=== PATIENT | female | born 1965 | race Hispanic/Latino ===

== ENCOUNTER 2017-06-13 08:20 | Day surgery (SDC) | payer MEDICARE ==
[2017-06-05 11:31] VITALS: BMI 38.0
[2017-06-13] MEDS ORDERED: Propofol 10 mg/ml Inj (20 ML) ONE ×2 (10:56→11:08)
[2017-06-13] MEDS ORDERED: Sodium Chloride 0.9% 1,000 ML IV SCH (11:30)
[2017-06-13 11:35] VITALS: O2SAT 99
[2017-06-13 12:44] VITALS: BP 120/64; PULSE 103; RESP 16; TEMP 98.7
== END 2017-06-13 12:57 | disposition home or self-care (01) ==
LOC: ENDO 08:20
PROVIDERS: ATTEND Internal Medicine Gastroenterology
DX: K22.10 Ulcer of esophagus without bleeding (principal); K20.9 Esophagitis, unspecified; K44.9 Diaphragmatic hernia without obstruction or gangrene; F32.89 Other specified depressive episodes; F41.0 Panic disorder [episodic paroxysmal anxiety]
CPT/HCPCS: 43235; J2704; J3010; J7040 ×2

== ENCOUNTER 2017-07-09 08:20 | Emergency (ER) | payer MEDICARE ==
[2017-07-09 09:01] VITALS: TEMP 98.1; BMI 35.4
--- NOTE | 2017-07-09 09:35 | ED PDOC ---
Arrival/HPI - General Chief Complaint: Breast Problem Time Seen by Provider: 07/09/17 09:15 Historian: Patient - History of Present Illness Narrative History of Present Illness (Text): 07/09/17 09:32 A 52 year old female, whose past medical history includes anxiety, depression( taking medication), CAD, dizziness, and mitral valve prolapse, presents to the emergency department complaining of left side breast pain. Patient reports pain began yesterday. Patient denies any discharge from nipple, shortness of breath, abdominal pain, back pain, weight loss, chills, or any other complaints. Patient has not contacted PMD about symptom. Also, patient mentions having breast examination in the past. PMD: Dr. Trujillo Time/Duration: 24 hours Symptom Onset: Sudden Symptom Course: Unchanged Past Medical History - Provider Review Nursing Documentation Reviewed: Yes - Infectious Disease Hx of Infectious Diseases: None - Tetanus Immunization Tetanus Immunization: Unknown - Past Medical History Past Medical History: No Previous - Cardiac Hx Cardiac Disorders: No Hx Pacemaker: No - Pulmonary Hx Respiratory Disorders: No - Neurological Hx Paralysis: No - HEENT Hx HEENT Disorder: Yes (patient wears eyeglasses) - Renal Hx Renal Disorder: No - Endocrine/Metabolic Hx Endocrine Disorders: No - Hematological/Oncological Hx Blood Transfusions: No - Integumentary Hx Dermatological Disorder: No - Musculoskeletal/Rheumatological Hx Musculoskeletal Disorders: No - Gastrointestinal Hx Gastrointestinal Disorders: Yes Hx Gall Bladder Disease: Yes (CHOLELITHIASIS) Hx Gastrointestinal Ulcer: Yes - Genitourinary/Gynecological Hx Genitourinary Disorders: Yes Hx Urinary Tract Infection: Yes - Psychiatric Hx Anxiety: Yes Hx Depression: Yes Hx Emotional Abuse: No Hx Physical Abuse: No Hx Substance Use: No - Past Surgical History Past Surgical History: No Previous - Surgical History Hx Appendectomy: Yes - Anesthesia Hx Anesthesia Reactions: No Hx Malignant Hyperthermia: No - Suicidal Assessment Feels Threatened In Home Enviroment: No Family/Social History - Physician Review Nursing Documentation Reviewed: Yes Family/Social History: No Known Family HX Smoking Status: Never Smoked Hx Alcohol Use: No Hx Substance Use: No Hx Substance Use Treatment: No Allergies/Home Meds Allergies/Adverse Reactions: Allergies No Known Allergies Allergy (Verified 07/09/17 08:57) Home Medications: Home Meds Medication Instructions Recorded Confirmed ARIPiprazole [Abilify] 5 mg PO QAM 03/29/14 07/09/17 Escitalopram [Lexapro] 10 mg PO QAM 01/25/16 07/09/17 LORazepam [Ativan] 2 mg PO QID 01/25/16 07/09/17 Famotidine [Pepcid] 20 mg PO DAILY 05/28/16 07/09/17 Esomeprazole Magnesium [Nexium] 40 mg PO DAILY 06/05/17 07/09/17 Review of Systems - Physician Review All systems were reviewed & negative as marked: Yes - Review of Systems Constitutional: absent: Weight Change, Night Sweats Respiratory: absent: SOB Cardiovascular: Other (left side breast pain, but no discharge from nipple) Gastrointestinal: absent: Abdominal Pain Musculoskeletal: absent: Back Pain Physical Exam Vital Signs Reviewed: Yes Vital Signs Temp Pulse Resp BP Pulse Ox 07/09/17 12:33 89 17 135/71 98 07/09/17 12:02 94 H 18 138/69 100 07/09/17 08:58 98.1 F 108 H 19 145/70 100 Temperature: Afebrile Blood Pressure: Normal Pulse: Regular Respiratory Rate: Normal Appearance: Positive for: Well-Appearing Pain Distress: None Mental Status: Positive for: Alert and Oriented X 3 - Systems Exam Head: Present: Atraumatic, Normocephalic Pupils: Present: PERRL Extroacular Muscles: Present: EOMI Conjunctiva: Present: Normal Mouth: Present: Moist Mucous Membranes Neck: Present: Normal Range of Motion Respiratory/Chest: Present: Clear to Auscultation, Good Air Exchange. No: Respiratory Distress, Accessory Muscle Use Cardiovascular: Present: Regular Rate and Rhythm, Normal S1, S2. No: Murmurs Abdomen: Present: Normal Bowel Sounds. No: Tenderness, Distention, Peritoneal Signs Breast/Axillary: Present: Other (right lower quadrant tenderness of left breast ; no warmth (examination chaperoned by Lu Mandel)), Swelling ( palpable soft tissue swelling, regular shape 2 inch x 1 inch). No: Erythema, Nipple Discharge Back: Present: Normal Inspection Upper Extremity: Present: Normal Inspection. No: Cyanosis, Edema Lower Extremity: Present: Normal Inspection. No: Edema Neurological: Present: GCS=15, CN II-XII Intact, Speech Normal Skin: Present: Warm, Dry, Normal Color. No: Rashes Psychiatric: Present: Alert, Oriented x 3, Normal Insight, Normal Concentration Medical Decision Making ED Course and Treatment: 07/09/17 09:36 Impression: 52 year old female with left side breast pain. Physical exam shwos right lower quadrant tenderness to left breast; soft tissue swelling, regular size 2 inch x 1 inch; no erythema; no warmth. Chaperoned by Lu Mandel. Differential Diagnosis included but are not limited to: Breast Pain Abscess vs. Cyst vs. Soft Tissue Swelling Plan: -- Breast Left Ultrasound -- Motrin -- Reassess and disposition Prior Visits: Notes and results from previous visits were reviewed. Patient was last seen in the emergency department on 03/06/2015 for epigastric abdominal pain with associated symptoms of multiple episodes of diarrhea. Patient was discharged home. Progress Notes: 07/09/2017 11:19 Breast Ultrasound IMPRESSION: No sonographic evidence of malignancy. BIRADS: BIRADS 1 (negative) Recommendation: Continue annual screening mammography, as per ACR guidelines Dictator: Jakub Toussaint MD I explained ultrasound report to the patient and family member, sister, at bedside. I advised her to follow up with a breast surgeon and gave her the information of a breast surgeon Dr. Drew. I advised her that she needs to schedule a Mammogram as soon as possible. She agreed to make sure she schedules a mammogram. She was advised to follow up with her primary care doctor in 1- 2days. - RAD Interpretation Radiology Orders: 07/09/17 09:29 BREAST UNILATERAL LEFT [US] Stat - Medication Orders Current Medication Orders: Discontinued Medications Ibuprofen (Motrin Tab) 600 mg PO STAT STA Stop: 07/09/17 09:33 Last Admin: 07/09/17 10:23 Dose: 600 mg MAR Pain/Vitals Document 07/09/17 10:23 SF (Rec: 07/09/17 10:23 SF [facility] [id number] Pain Reassessment Is This A Pain ReAssessment? Yes Sleep Is patient sleeping during reassessment? No Presence of Pain Presence of Pain Yes Pain Scale Used Pain Scale Used Numeric Location Left, Right or Bilateral Left - Scribe Statement The provider has reviewed the documentation as recorded by the [employer] Jordan Provider Scribe Attestation: All medical record entries made by the [employer] were at my direction and personally dictated by me. I have reviewed the chart and agree that the record accurately reflects my personal performance of the history, physical exam, medical decision making, and the department course for this patient. I have also personally directed, reviewed, and agree with the discharge instructions and disposition. Disposition/Present on Arrival - Present on Arrival Any Indicators Present on Arrival: No History of DVT/PE: No History of Uncontrolled Diabetes: No Urinary Catheter: No History of Decub. Ulcer: No History Surgical Site Infection Following: None - Disposition Have Diagnosis and Disposition been Completed?: Yes Diagnosis: Breast pain Disposition: HOME/ ROUTINE Disposition Time: 12:38 Patient Plan: Discharge Condition: IMPROVED Discharge Instructions (ExitCare): Chest Pain (ED), Breast Self Exam for Women (ED) Additional Instructions: Ms Jacob, thank you for letting us take care of you today. Your provider was Dr. Mansfield. You were treated for Breast Pain. The emergency medical care you received today was directed at your acute symptoms. If you were prescribed any medication, please fill it and take as directed. It may take several days for your symptoms to resolve. Return to the Emergency Department if your symptoms worsen, do not improve, or if you have any other problems. Please contact your doctor or call one of the physicians/clinics you have been referred to that are listed on the Patient Visit Information form that is included in your discharge packet. Bring any paperwork you were given at discharge with you along with any medications you are taking to your follow up visit. Our treatment cannot replace ongoing medical care by a primary care provider (PCP) outside of the emergency department. Thank you for allowing the [facility] team to be part of your care today. If you had an X-Ray or CT scan: A Radiologist will review the ED reading if any change in treatment is needed we will contact you. If you had a blood, urine, or wound culture: It will take several days for the results, if any change in treatment is needed we will contact you. If you had an STI test: It will take 48 hours for the results. Please call after 1 week if you have not heard back. Prescriptions: Ibuprofen [Motrin] 600 mg PO Q6 PRN #30 tab PRN Reason: Pain, Moderate (4-7) Referrals: Denzel Beckham MD [Staff Provider] - Follow up with primary Forms: [employer] (Italian), WORK NOTE
--- NOTE | 2017-07-09 11:21 | US ---
HISTORY: Comparison examinations: 03/28/2016 prior bilateral breast ultrasound. TECHNIQUE: Sonographic evaluation of both breast was performed. FINDINGS: LEFT BREAST: Cyst(s): None Breast mass: None Dilated ducts: None Parenchymal distortion: None Skin thickening or subcutaneous abnormalities: None No axillary lymphadenopathy identified. IMPRESSION: No sonographic evidence of malignancy. BIRADS: BIRADS 1 (negative) Recommendation: Continue annual screening mammography, as per ACR guidelines
[2017-07-09 12:34] VITALS: BP 135/71; PULSE 89; RESP 17; O2SAT 98
== END 2017-07-09 12:38 | disposition home or self-care (01) ==
LOC: ED 08:20
DX: N64.4 Mastodynia (principal); I25.10 Atherosclerotic heart disease of native coronary artery without angina pectoris

== ENCOUNTER 2017-07-15 08:26 | Emergency (ER) | payer MEDICARE, OTHER ==
[2017-07-15 08:43] VITALS: BMI 31.8
[2017-07-15 08:56] VITALS: RESP 18; TEMP 98.4; O2SAT 98
--- NOTE | 2017-07-15 09:57 | RAD ---
PROCEDURE: Left Knee Radiographs. HISTORY: Pain. COMPARISON: None. FINDINGS: BONES: There is no acute displaced fracture or bone destruction. Bone alignment. There is diffuse bone demineralization. There is a prominent superior patellar enthesophyte. JOINTS: Normal. No osteoarthritis. JOINT EFFUSION: None. OTHER FINDINGS: There is diffuse subcutaneous edema. IMPRESSION: No acute displaced fracture or dislocation.
--- NOTE | 2017-07-15 09:59 | ED PDOC ---
Arrival/HPI - General Chief Complaint: Lower Extremity Problem/Injury Time Seen by Provider: 07/15/17 08:59 Historian: Patient - History of Present Illness Narrative History of Present Illness (Text): 07/15/17 09:55 52yo morbidly obese female who present with complaint of intermittent left knee pain. Notes history of similar pain. States she saw a Doctor for the pain in the past, but never had any imaging. Notes that this pain started few days ago. Pain is only with ambulation, sharp, 6/10. she did not take any medication for the pain. She denies calf pain, trauma, swelling, redness, SOB, any other complaint. Past Medical History - Provider Review Nursing Documentation Reviewed: Yes - Infectious Disease Hx of Infectious Diseases: None - Tetanus Immunization Tetanus Immunization: Unknown - Reproductive Menopause: Yes - Past Medical History Past Medical History: No Previous - Cardiac Hx Cardiac Disorders: No Hx Pacemaker: No - Pulmonary Hx Respiratory Disorders: No - Neurological Hx Paralysis: No - HEENT Hx HEENT Disorder: Yes (patient wears eyeglasses) - Renal Hx Renal Disorder: No - Endocrine/Metabolic Hx Endocrine Disorders: No - Hematological/Oncological Hx Blood Transfusions: No - Integumentary Hx Dermatological Disorder: No - Musculoskeletal/Rheumatological Hx Musculoskeletal Disorders: No - Gastrointestinal Hx Gastrointestinal Disorders: Yes Hx Gall Bladder Disease: Yes (CHOLELITHIASIS) Hx Gastrointestinal Ulcer: Yes - Genitourinary/Gynecological Hx Genitourinary Disorders: Yes Hx Urinary Tract Infection: Yes - Psychiatric Hx Anxiety: Yes Hx Depression: Yes Hx Emotional Abuse: No Hx Physical Abuse: No Hx Substance Use: No - Past Surgical History Past Surgical History: No Previous - Surgical History Hx Appendectomy: Yes - Anesthesia Hx Anesthesia Reactions: No Hx Malignant Hyperthermia: No - Suicidal Assessment Feels Threatened In Home Enviroment: No Family/Social History - Physician Review Nursing Documentation Reviewed: Yes Family/Social History: Unknown Family HX Smoking Status: Never Smoked Hx Alcohol Use: No Hx Substance Use: No Hx Substance Use Treatment: No Allergies/Home Meds Allergies/Adverse Reactions: Allergies No Known Allergies Allergy (Verified 07/15/17 09:18) Home Medications: Home Meds Medication Instructions Recorded Confirmed ARIPiprazole [Abilify] 5 mg PO QAM 03/29/14 07/15/17 Escitalopram [Lexapro] 10 mg PO QAM 01/25/16 07/15/17 LORazepam [Ativan] 2 mg PO QID 01/25/16 07/15/17 Famotidine [Pepcid] 20 mg PO DAILY 05/28/16 07/15/17 Esomeprazole Magnesium [Nexium] 40 mg PO DAILY 06/05/17 07/15/17 Review of Systems - Physician Review All systems were reviewed & negative as marked: Yes - Review of Systems Constitutional: Normal Eyes: Normal ENT: Normal Respiratory: Normal Cardiovascular: Normal Gastrointestinal: Normal Genitourinary Female: Normal Musculoskeletal: Normal, Arthralgias (Left knee pain) Skin: Normal Neurological: Normal Endocrine: Normal Hemo/Lymphatic: Normal Psychiatric: Normal Physical Exam Vital Signs Reviewed: Yes Vital Signs Temp Pulse Resp BP Pulse Ox 07/15/17 08:43 98.4 F 110 H 18 106/68 98 Temperature: Afebrile Blood Pressure: Normal Pulse: Regular Respiratory Rate: Normal Appearance: Positive for: Well-Appearing, Non-Toxic, Comfortable Pain Distress: None Mental Status: Positive for: Alert and Oriented X 3 - Systems Exam Head: Present: Atraumatic, Normocephalic Pupils: Present: PERRL Extroacular Muscles: Present: EOMI Conjunctiva: Present: Normal Mouth: Present: Moist Mucous Membranes Neck: Present: Normal Range of Motion Respiratory/Chest: Present: Clear to Auscultation, Good Air Exchange. No: Respiratory Distress, Accessory Muscle Use Cardiovascular: Present: Regular Rate and Rhythm, Normal S1, S2. No: Murmurs Abdomen: Present: Normal Bowel Sounds. No: Tenderness, Distention, Peritoneal Signs Back: Present: Normal Inspection Upper Extremity: Present: Normal Inspection. No: Cyanosis, Edema Lower Extremity: Present: Normal Inspection, NORMAL PULSES, Normal ROM, Neurovascularly Intact. No: Edema, Tenderness, Swelling, Erythema, Temperature Abnormalties Neurological: Present: GCS=15, CN II-XII Intact, Speech Normal Skin: Present: Warm, Dry, Normal Color. No: Rashes Psychiatric: Present: Alert, Oriented x 3, Normal Insight, Normal Concentration Medical Decision Making ED Course and Treatment: 07/15/17 10:01 Left knee - No acute fracture/dislocation Result was DW the pt. Trent wrap applied. PT advised to f/u with orthopedist. Rx of Naprosyn given. - RAD Interpretation Radiology Orders: 07/15/17 09:03 KNEE LEFT 2 VIEWS (AP & LAT) [RAD] Stat - Medication Orders Current Medication Orders: Discontinued Medications Ketorolac Tromethamine (Toradol) 60 mg IM STAT STA Stop: 07/15/17 09:05 Last Admin: 07/15/17 09:16 Dose: 60 mg MAR Pain Assessment Document 07/15/17 09:16 SE (Rec: 07/15/17 09:16 [id number]) Pain Reassessment Is this a pain reassessment? No Sleep Is patient sleeping during reassessment? No Presence of Pain Presence of Pain Yes Pain Scale Used Pain Scale Used Numeric Location Left, Right or Bilateral Left Pain Location Body Site Knee IM Administration Charges Document 07/15/17 09:16 SE (Rec: 07/15/17 09:16 [id number]) Injection Site MAR Injection Site Right Vastus Lateralis Charges for Administration # of IM Administrations 1 Disposition/Present on Arrival - Present on Arrival Any Indicators Present on Arrival: No History of DVT/PE: No History of Uncontrolled Diabetes: No Urinary Catheter: No History of Decub. Ulcer: No - Disposition Have Diagnosis and Disposition been Completed?: Yes Diagnosis: Knee pain Disposition Time: 10:05 Patient Plan: Discharge Condition: STABLE Discharge Instructions (ExitCare): Knee Pain (ED) Additional Instructions: Follow up with orthopedist Return to ED for any new or worsening symptoms Prescriptions: Naproxen [Naprosyn] 500 mg PO BID #20 tablet Referrals: Maurilio Trujillo MD [Primary Care Provider] - Follow up with primary Juan Manuel Temple III, MD [Medical Doctor] - Follow up with primary Teofilo Morel DO [Staff Provider] - Follow up with primary Forms: [employer] (Yakut)
[2017-07-15 10:12] VITALS: BP 119/53; PULSE 100
== END 2017-07-15 10:13 | disposition home or self-care (01) ==
LOC: ED 08:26
DX: M25.562 Pain in left knee (principal)
CPT/HCPCS: 73560; 96372; 99284; J1885

== ENCOUNTER 2017-07-15 17:47 | Inpatient (IN) | payer MEDICARE, OTHER ==
[2017-07-15 19:08] LABS: BASO # 0.03 K/mm3 (0.0-2.0); BASO % 0.4 % (0.0-3.0); EOS # 0.1 (0.0-0.7); EOS % 1.2 % (1.5-5.0); GRAN # 5.87 (1.4-6.5); GRAN % 72.3 % (50.0-68.0); LYMPH # 1.5 (1.2-3.4); LYMPH % 18.8 % (22.0-35.0); MEAN CORPUSCULAR HEMOGLOBIN 15.9 pg (25.0-35.0); MEAN CORPUSCULAR HGB CONC 24.5 g/dl (31.0-37.0); MEAN PLATELET VOLUME 8.8 fl (7.0-11.0); MONO # 0.6 (0.1-0.6); MONO % 7.3 % (1.0-6.0); RBC 3.83 10^6/uL (3.5-6.1); RED CELL DISTRIBUTION WIDTH 20.7 % (11.5-14.5)
[2017-07-15 19:11] LABS: VENOUS BLOOD GAS BASE EXCESS -0.4 mmol/L (0.0-2.0); VENOUS BLOOD GAS PO2 77 mm/Hg (30-55); VENOUS BLOOD PH 7.38 (7.32-7.43)
[2017-07-15 19:12] LABS: HEMOGLOBIN 6.1 g/dL (12.0-16.0)
[2017-07-15 19:14] LABS: WHITE BLOOD COUNT 8.1 10^3/ul (4.5-11.0)
--- NOTE | 2017-07-15 19:16 | ED PDOC ---
Arrival/HPI - General Chief Complaint: Shortness Of Breath Time Seen by Provider: 07/15/17 17:54 Historian: Patient - History of Present Illness Narrative History of Present Illness (Text): 07/15/17 19:09 52yo morbidly obese female preset with the complaint of b/l leg swelling, Pt was seen here earlier for left knee pain and she was discharged after a negative knee xray. She came back with her sister with 2weeks history of worsening LE edema with associated HARVEY. He denies previous history. Danes fever , chills, chest pain, diaphoresis, upper back ripping/tearing pain, any other complaint. Past Medical History - Provider Review Nursing Documentation Reviewed: Yes - Infectious Disease Hx of Infectious Diseases: None - Tetanus Immunization Tetanus Immunization: Unknown - Reproductive Menopause: Yes - Past Medical History Past Medical History: No Previous - Cardiac Hx Cardiac Disorders: Yes Hx Mitral Valve Prolapse: Yes - Pulmonary Hx Respiratory Disorders: No - Neurological Hx Neurological Disorder: No - HEENT Hx HEENT Disorder: Yes (patient wears eyeglasses) - Renal Hx Renal Disorder: No - Endocrine/Metabolic Hx Endocrine Disorders: No - Hematological/Oncological Hx Blood Disorders: No - Integumentary Hx Dermatological Disorder: No - Musculoskeletal/Rheumatological Hx Musculoskeletal Disorders: No - Gastrointestinal Hx Gastrointestinal Disorders: Yes Hx Gall Bladder Disease: Yes (CHOLELITHIASIS) Hx Gastrointestinal Ulcer: Yes - Genitourinary/Gynecological Hx Genitourinary Disorders: Yes Hx Urinary Tract Infection: Yes Other/Comment: ENDOMETRIOSIS - Psychiatric Hx Anxiety: Yes Hx Depression: Yes Hx Emotional Abuse: No Hx Physical Abuse: No Hx Substance Use: No - Past Surgical History Past Surgical History: No Previous - Surgical History Hx Appendectomy: Yes - Anesthesia Hx Anesthesia Reactions: No Hx Malignant Hyperthermia: No - Suicidal Assessment Feels Threatened In Home Enviroment: No Family/Social History - Physician Review Nursing Documentation Reviewed: Yes Family/Social History: Unknown Family HX Smoking Status: Never Smoked Hx Alcohol Use: No Hx Substance Use: No Hx Substance Use Treatment: No Allergies/Home Meds Allergies/Adverse Reactions: Allergies No Known Allergies Allergy (Verified 07/15/17 18:09) Home Medications: Home Meds Medication Instructions Recorded Confirmed ARIPiprazole [Abilify] 5 mg PO QAM 03/29/14 07/15/17 Escitalopram [Lexapro] 10 mg PO QAM 01/25/16 07/15/17 LORazepam [Ativan] 2 mg PO QID 01/25/16 07/15/17 Famotidine [Pepcid] 20 mg PO DAILY 05/28/16 07/15/17 Esomeprazole Magnesium [Nexium] 40 mg PO DAILY 06/05/17 07/15/17 Review of Systems - Physician Review All systems were reviewed & negative as marked: Yes - Review of Systems Constitutional: Normal Eyes: Normal ENT: Normal Respiratory: SOB. absent: Cough Cardiovascular: Edema. absent: Palpitations, Calf Pain, HARVEY Gastrointestinal: Normal Genitourinary Female: Normal Musculoskeletal: Normal Skin: Normal Neurological: Normal Endocrine: Normal Hemo/Lymphatic: Normal Psychiatric: Normal Physical Exam Vital Signs Reviewed: Yes Vital Signs Temp Pulse Resp BP Pulse Ox 07/15/17 18:22 21 98 07/15/17 18:15 98.1 F 114 H 23 121/80 99 Temperature: Afebrile Blood Pressure: Normal Pulse: Tachycardic Respiratory Rate: Normal Appearance: Positive for: Well-Appearing, Non-Toxic, Comfortable Pain Distress: None Mental Status: Positive for: Alert and Oriented X 3 - Systems Exam Head: Present: Atraumatic, Normocephalic Pupils: Present: PERRL Extroacular Muscles: Present: EOMI Conjunctiva: Present: Normal Mouth: Present: Moist Mucous Membranes Neck: Present: Normal Range of Motion Respiratory/Chest: Present: Clear to Auscultation, Good Air Exchange. No: Respiratory Distress, Accessory Muscle Use, Wheezes, Decreased Breath Sounds, Rales, Retracting, Rhonchi Cardiovascular: Present: Regular Rate and Rhythm, Normal S1, S2. No: Murmurs Abdomen: Present: Normal Bowel Sounds. No: Tenderness, Distention, Peritoneal Signs Back: Present: Normal Inspection Upper Extremity: Present: Normal Inspection. No: Cyanosis, Edema Lower Extremity: Present: Edema (4+ bipedal edema), NORMAL PULSES, Normal ROM, Neurovascularly Intact. No: CALF TENDERNESS, Cyanosis, Temperature Abnormalties Neurological: Present: GCS=15, CN II-XII Intact, Speech Normal Skin: Present: Warm, Dry, Normal Color. No: Rashes Psychiatric: Present: Alert, Oriented x 3, Normal Insight, Normal Concentration Medical Decision Making ED Course and Treatment: 07/15/17 20:33 EKG Sinus tachy with LVH @110bpm PT in ED for stated history. She was not in any distress. Lab was reviewed and H /H of 6.4 was noted which is new compare to her previous labs. Type and cross match x 2units was ordered and pending. D dimer was elevated and Chest CTA was ordered LE doppler was negative according to the US tech Case was DW Dr. Sorensen and pt was admitted 07/15/17 21:18 On further discussion of lab with pt and the family members, the sister states pt was recently told she have GI ulcer after EGD and had a f/u with the GI, Dr. Toledo on the 8th of this month. On further evaluation pt does appear pale. Consent for transfusion was obtained. - Lab Interpretations Lab Results: 07/15/17 18:47 07/15/17 18:47 Lab Results 07/15/17 18:47: Sodium 143, Chloride 108 H, Potassium 3.7, Carbon Dioxide 24, Anion Gap 15, BUN 14, Creatinine 0.7, Est GFR ( Amer) > 60, Est GFR (Non- Af Amer) > 60, Random Glucose 101, Calcium 9.1, Total Bilirubin 0.8, AST 16, ALT 30, Alkaline Phosphatase 96, Lactate Dehydrogenase 528, Total Creatine Kinase 39, Troponin I < 0.01, NT-Pro-B Natriuret Pep 387, Total Protein 6.4, Albumin 4.0, Globulin 2.5, Albumin/Globulin Ratio 1.6 07/15/17 18:47: pO2 77 H, VBG pH 7.38, VBG pCO2 42.0, VBG HCO3 24.8, VBG Total CO2 26.1, VBG O2 Sat (Calc) 98.5 H, VBG Base Excess -0.4 L, VBG Potassium 3.6, Sodium 143.0, Chloride 110.0 H, Glucose 105, Lactate 1.2, FiO2 21.0, Venous Blood Potassium 3.6 07/15/17 18:47: PT 12.6 H, INR 1.10 H, APTT 30.3, D-Dimer, Quantitative 535 H 07/15/17 18:47: WBC 8.1 D, RBC 3.83, Hgb 6.1 L*, Hct 24.9 L, MCV 65.0 L, MCH 15.9 L, MCHC 24.5 L, RDW 20.7 H, Plt Count 426, MPV 8.8, Gran % 72.3 H, Lymph % (Auto) 18.8 L, Burt % (Auto) 7.3 H, Eos % (Auto) 1.2 L, Baso % (Auto) 0.4, Gran # 5.87, Lymph # (Auto) 1.5, Burt # (Auto) 0.6, Eos # (Auto) 0.1, Baso # (Auto) 0.03 - RAD Interpretation Radiology Orders: 07/15/17 18:27 DUPLEX LOWER EXTRM VEIN BILAT [US] Stat 07/15/17 18:35 CHEST ONE VIEW [RAD] Stat 07/15/17 19:39 ANGIO CHEST PE PROTOCOL [CT] Stat - Medication Orders Current Medication Orders: Aripiprazole (Abilify) 5 mg PO QAM JEFFERY Escitalopram Oxalate (Lexapro) 10 mg PO QAM JEFFERY Sodium Chloride (Sodium Chloride 0.9%) 1,000 mls @ 999 mls/hr IV .Q1H1M STA Stop: 07/15/17 22:16 Lorazepam (Ativan) 2 mg PO QID JEFFERY PRN Reason: Protocol Pantoprazole Sodium (Protonix Inj) [address] [facility] Last Admin: 07/15/17 21:07 Dose: 40 mg IVP Administration Document 07/15/17 21:07 SE (Rec: 07/15/17 21:07 SE [id number]) Charges for Administration # of IVP Administrations 1 Disposition/Present on Arrival - Present on Arrival Any Indicators Present on Arrival: No History of DVT/PE: No History of Uncontrolled Diabetes: No Urinary Catheter: No History of Decub. Ulcer: No History Surgical Site Infection Following: None - Disposition Have Diagnosis and Disposition been Completed?: Yes Diagnosis: Anemia, Edema Disposition: HOSPITALIZED Disposition Time: 20:30 Patient Plan: Admission Patient Problems: Current Active Problems Problem Status Onset Anemia Acute Edema Acute Condition: FAIR Referrals: Nathan Sorensen MD [Primary Care Provider] - Follow up with primary Forms: [employer] (Tongan)
[2017-07-15 19:17] LABS: INR 1.1 (0.93-1.08); PARTIAL THROMBOPLASTIN TIME 30.3 Seconds (25.1-36.5); PROTHROMBIN TIME 12.6 SECONDS (9.4-12.5)
[2017-07-15 19:20] LABS: ALB/GLOB RATIO 1.6 (1.1-1.8); ALT/SGPT 30 U/L (7-56); AST/SGOT 16 U/L (14-36); BLOOD UREA NITROGEN 14 mg/dL (7-21); CALCIUM 9.1 mg/dL (8.4-10.5); GFR AFRICAN-AMERICAN > 60; GFR NON-AFRICAN AMERICAN > 60
[2017-07-15 19:32] LABS: B-TYPE NATRIURETIC PEPTIDE 387 pg/mL (0-450); TROPONIN I < 0.01 ng/mL
[2017-07-15] MEDS ORDERED: Iohexol 350 MG/100 ML VIAL ONE (20:11)
[2017-07-15 21:13] LABS: BASO # 0.02 K/mm3 (0.0-2.0); BASO % 0.3 % (0.0-3.0); EOS # 0.1 (0.0-0.7); EOS % 1.2 % (1.5-5.0); GRAN # 4.88 (1.4-6.5); GRAN % 67.3 % (50.0-68.0); LYMPH # 1.7 (1.2-3.4); LYMPH % 22.7 % (22.0-35.0); MEAN CORPUSCULAR HEMOGLOBIN 16.2 pg (25.0-35.0); MEAN PLATELET VOLUME 8.7 fl (7.0-11.0); MONO # 0.6 (0.1-0.6); MONO % 8.5 % (1.0-6.0); RBC 3.51 10^6/uL (3.5-6.1); RED CELL DISTRIBUTION WIDTH 20.5 % (11.5-14.5); WHITE BLOOD COUNT 7.3 10^3/ul (4.5-11.0)
[2017-07-15] MEDS ORDERED: Sodium Chloride 0.9% 1,000 ML IV STA (21:16)
[2017-07-15 21:19] LABS: HEMOGLOBIN 5.7 g/dL (12.0-16.0)
--- NOTE | 2017-07-15 21:39 | CT ---
EXAM: CT Angiography Chest With Intravenous Contrast CLINICAL HISTORY: 52 years old, female; Signs and symptoms; Shortness of breath; Additional info: SOB TECHNIQUE: Axial computed tomographic angiography images of the chest with intravenous contrast using pulmonary embolism protocol. All CT scans at this facility use one or more dose reduction techniques, viz.: automated exposure control; ma/kV adjustment per patient size (including targeted exams where dose is matched to indication; i.e. head); or iterative reconstruction technique. MIP reconstructed images were created and reviewed. Coronal and sagittal reformatted images were created and reviewed. CONTRAST: 100 mL of omni 350 administered intravenously. COMPARISON: No relevant prior studies available. FINDINGS: Limitations: Motion artifact - mild. Suboptimal timing of bolus. Pulmonary arteries: No definite pulmonary embolism. Aorta: No aneurysm. No dissection. Lungs: Mild atelectasis/scarring. No consolidation. Minimal mosaic pattern of lung parenchyma. Mild interlobular septal thickening. Pleural space: No significant effusion. No pneumothorax. Heart: [id number] cardiomegaly. No significant pericardial effusion. Minimal coronary artery calcifications. Mediastinum: Moderate-sized hiatal hernia. Bones/joints: Few healing rib fractures. Soft tissues: Unremarkable. Lymph nodes: No pathologically enlarged lymph nodes. Gallbladder and bile ducts: Calcified gallstones. Upper abdomen: Elevated RIGHT hemidiaphragm. IMPRESSION: 1. No definite CT evidence of pulmonary embolism. 2. Possible early interstitial edema. Clinical correlation is needed. 3. Incidental/non-acute findings are described above.
[2017-07-15 21:45] LABS: IRON 11 ug/dL (45-180)
[2017-07-15 21:54] LABS: % IRON SATURATION 2 % (20-55); TOTAL IRON BINDING CAPACITY 444 ug/dL (265-497)
[2017-07-15 22:26] LABS: FREE T4 1.82 ng/dL (0.78-2.19); T4 12.6 ug/dL (5.5-11.0)
[2017-07-16 00:35] LABS: HDL CHOLESTEROL 45 mg/dL (29-60)
[2017-07-16 00:45] LABS: LDL CHOLESTEROL 67 mg/dL (0-129)
[2017-07-16] MEDS: Potassium Chloride 20 mEq ER Tab PO SCH ×2 (01:54→11:21)
[2017-07-16 05:41] LABS: BASO # 0.01 K/mm3 (0.0-2.0); BASO % 0.1 % (0.0-3.0); EOS # 0.1 (0.0-0.7); EOS % 1.3 % (1.5-5.0); GRAN # 5.24 (1.4-6.5); GRAN % 73.7 % (50.0-68.0); LYMPH # 1.1 (1.2-3.4); LYMPH % 15.9 % (22.0-35.0); MEAN CELL VOLUME 66.8 fl (80.0-105.0); MEAN CORPUSCULAR HEMOGLOBIN 17.1 pg (25.0-35.0); MEAN CORPUSCULAR HGB CONC 25.7 g/dl (31.0-37.0); MEAN PLATELET VOLUME 8.6 fl (7.0-11.0); MONO # 0.6 (0.1-0.6); RBC 3.91 10^6/uL (3.5-6.1); RED CELL DISTRIBUTION WIDTH 22.2 % (11.5-14.5); WHITE BLOOD COUNT 7.1 10^3/ul (4.5-11.0)
[2017-07-16 05:54] LABS: HEMOGLOBIN 6.7 g/dL (12.0-16.0)
[2017-07-16 06:21] LABS: LDL CHOLESTEROL 60 mg/dL (0-129)
[2017-07-16 06:22] LABS: ALB/GLOB RATIO 1.3 (1.1-1.8); ALBUMIN 3.4 g/dL (3.0-4.8); ALT/SGPT 20 U/L (7-56); AST/SGOT 15 U/L (14-36); BILIRUBIN,DIRECT 0.1 mg/dL (0.0-0.4); BLOOD UREA NITROGEN 11 mg/dL (7-21); CALCIUM 8.6 mg/dL (8.4-10.5); GFR AFRICAN-AMERICAN > 60; GFR NON-AFRICAN AMERICAN > 60; HDL CHOLESTEROL 39 mg/dL (29-60); MAGNESIUM 2.1 mg/dL (1.7-2.2)
--- NOTE | 2017-07-16 08:43 | CARD ---
APPROVED REPORT EKG Measurement Heart [id number] <Conclusion> Sinus tachycardia Left ventricular hypertrophy with repolarization abnormality Inferior infarct, age undetermined STTW changes
--- NOTE | 2017-07-16 08:46 | RAD ---
PROCEDURE: CHEST RADIOGRAPH, 1 VIEW HISTORY: SOB COMPARISON: Chest radiographs 12/26/2015. FINDINGS: LUNGS: Inspiratory volume appears somewhat diminished with exam distorted by apparent lordotic type technique. Repeat chest radiograph recommended. Left hemidiaphragm is not identified and may be obscured by a skin fold. Left basilar infiltrate or atelectasis is difficult to exclude nevertheless. No definite right infiltrate. PLEURA: No right pleural effusion. No pneumothorax bilaterally. It is difficult to completely exclude a limited left pleural effusion at the left base is incompletely penetrated. CARDIOVASCULAR: Cardiomegaly is suggested versus technical magnification by frontal technique. OSSEOUS STRUCTURES: No significant abnormalities. VISUALIZED UPPER ABDOMEN: Normal. OTHER FINDINGS: None. IMPRESSION: Exam limited by a essentially apical lordotic technique left basilar atelectasis, infiltrate or pleural effusion not excluded. None is clearly identified in the right. Cardiomegaly is not excluded. Repeat chest radiography is recommended, preferably by PA and lateral technique if possible.
--- NOTE | 2017-07-16 09:01 | HP ---
HISTORY OF PRESENT ILLNESS: The patient is a 52-year-old morbidly obese short-statured female, came to the emergency room earlier today around 8:00-8:30 in the morning complaining of leg pain. The patient was seen in the emergency room by the ER physician. The patient came for the left knee pain and redness to the left thigh. The patient was seen by the physician assistant art director. The patient complained of leg pain and was discharged, but later on the patient came back. The patient had a knee x-ray done today this morning for the left knee left leg pain, which reveals x-ray was negative, and the patient was discharged home. But later on, the patient came back again today complaining of shortness of breath and increasing bilateral leg swelling. The patient came to the emergency room accompanied by her sister who works as a corporation secretary on third floor. The patient also complained of symptoms severity of 5/10. The patient's code status is full code. Living will advance directive, none. ALLERGIES: None. Height is 5 feet 3 inches. Weight is 263 pounds. Next BMI is 47. The patient is in the emergency room, bed 12. HOME MEDICATIONS: Nexium 40 mg daily, Lexapro 10 mg daily, Abilify 5 mg daily, Ativan 2 mg four times a day, Pepcid 20 mg daily. SUBSTANCE ABUSE/SOCIAL HISTORY: Negative for alcohol smoking, drug use, communicable transmissible disease. MENSTRUAL HISTORY: The patient denies being . Sister denies being . PAST MEDICAL AND SURGICAL HISTORY: History of grade C esophagitis, history of possible Thompson's esophagus, history of dense breast, history of morbid obesity with elevated body mass index, history of anxiety, history of depression, history of developmental disorder, history of bilateral lower extremity venous stasis, history of developmental disorder, history of hypercholesterolemia, history of urinary tract infection in 2013, history of degenerative joint disease of the knees, history of diffuse bone demineralization, history of cholelithiasis, history of cardiomegaly, history of multiple endoscopies, history of appendicitis, history of laparoscopic appendectomy in 2013, history of right renal hypoechoic lesion - etiology undetermined, history of chronic gastritis, left ventricular ejection fraction of 63% on echocardiogram done in 2014, history of 1+ mitral regurgitation with moderate mitral valve prolapse, history of cardiac catheterization done in 2011, history of mildly dilated left ventricle with normal left ventricular ejection fraction, history of hypertensive cardiovascular disease, last echocardiogram done in December of 2015 showing left ventricle ejection fraction of 56% with borderline dilated left ventricle, history of moderately dilated left atrium, history of moderately thickened mitral valve with moderate mitral regurgitation, moderate mitral valve prolapse and mild pulmonary arterial hypertension with right ventricular systolic pressure of 35 mmHg, history of history of frequent PVCs, history of vertigo, history of hypokalemia, history of acute labyrinthitis, history of insomnia, history of intractable dizziness and vomiting, history of vertigo, history of vestibular neuritis, history of hypocalcemia, history of [place] grade C reflux esophagitis with one or more mucosal breaks continuous between the top of poor more mucosal folds less than 70% circumference, esophagitis at 25 cm from the incisors, history of hiatal hernia, history of nonbleeding esophageal ulcers, history of gastric fundus polyp nonbleeding, history of antral gastritis, history of internal hemorrhoids, history of colonoscopy, history of redundant colon, history of nodular ileum mucosa. PHYSICAL EXAMINATION: GENERAL: The patient is in the emergency room in bed #11. The patient's sister is present at the bedside who has accompanied the patient. The patient appears to be comfortable.. The patient does report shortness of breath, leg swelling. The patient is developmentally slow. VITAL SIGNS: T-max 98.1, heart rate 114, blood pressure 121/80, respiratory rate 21, O2 sat 98%. HEENT: Head examination normocephalic, atraumatic. HEENT examination shows pale conjunctivae, anicteric sclerae. No oropharyngeal lesion. Questionable jugular venous distention. CHEST: Kyphosis. LUNGS: Examination shows decreased breath sounds at the bases, poor inspiratory effort, questionable decreased breath sound at the left base. CARDIOVASCULAR: S1, S2, regular rhythm. Positive systolic murmur in the left sternal border, left second intercostal space, right second intercostal space. ABDOMEN: Obese. Positive bowel sound. Positive healed surgical scar of laparoscopic appendectomy. Positive epigastric periumbilical tenderness noted. Unable to appreciate any hepatosplenomegaly. Questionable right upper quadrant deep tenderness. GENITALIA: Female. RECTAL: Examination is deferred. EXTREMITIES: Shows 2-3+ pedal edema. No reproducible calf tenderness. Spine x-ray is negative. NEUROLOGICAL: Cranial nerves II-XII limited. The patient's speech is clear. The patient is alert, awake, responsive. Motor strength is 5/5. DIAGNOSTICS: There were two CBCs done. Initial CBC shows WBCs ranging 7.3-8.1, hemoglobin/hematocrit of 5.7/22.8, 6.1/24, MCV 65, platelet 380 and 426. Granulocytes is 72. Retic count 2.4. PT/PTT of 12.6/30.3, D-dimer is 535. VBG, lactate is negative. Sodium 143, potassium 3.7, chloride 108, CO2 24, anion gap 15, BUN 14, creatinine 0.7, GFR greater than 60, glucose 101, calcium 9.1, iron 11, saturation 2, TIBC 444. LFTs, troponin negative. BNP is 387. TSH is 2.06, T4 is 12.6. Blood type is A+. Chest x-ray shows cardiomegaly. Venous Doppler was sent for both extremity, which was negative for DVT. The patient had a CT angio done, which shows atelectasis scarring, mosaic pattern of the lung parenchyma, interlobular septal thickening, moderate cardiomegaly, moderate-sized hiatal hernia, refractured calcified gallstones, possible early interstitial edema. EKG done in the emergency room shows sinus tachycardia, left ventricular hypertrophy, questionable left axis deviation. The patient's EKG was compared with the EKG of 2015, which shows similar findings, left ventricular hypertrophy. The patient was seen in the emergency room by [facility]. The patient was seen in the ER. The patient was typed and crossmatch. The patient was started transfusion of PRBC. The patient was admitted. IMPRESSION AND PLAN: 1. Severe symptomatic anemia with symptoms of bilateral lower extremity venous stasis, dyspnea on exertion and shortness of breath. 2. Sinus tachycardia. 3. Severe symptomatic anemia, microcytic anemia. 4. Granulocytosis. 5. Elevated reticulocyte count. 6. Elevated D-dimer. 7. Iron-deficiency anemia. 8. Questionable hyperthyroidism with elevated T4 of 12.6. 9. Moderate cardiomegaly. 10. Bibasilar atelectasis scarring with bilateral pulmonary mosaic pattern of the lung parenchyma. 11. Mild interlobular septal thickening. 12. Moderate hiatal hernia. 13. Healing refracture. 14. Calcified cholelithiasis. 15. Elevated right hemidiaphragm. 16. Left ventricular hypertrophy and hypertensive cardiovascular disease. 17. Age indeterminate inferior infarct. 18. Questionable hypertension. PLAN: At this time, the patient has been started transfusion of 2 units of PRBC in the emergency room. The patient has been admitted to [facility]. B12, folate, transferrin, serial CBC, CMP, LFTs, erythropoietin ordered. Consultation; Cardiology, Gastroenterology. The patient is resumed on home medications, Abilify 5 mg a.m., Ativan 2 mg four times a day, Lexapro 10 mg daily, Protonix 40 IV q.12. The patient was started on liquid diet. For possible evaluation by Gastroenterology for GI intervention. The patient was given 1 liter of IV fluid by the ER physician assistant art director. The venous Doppler of the lower extremity was negative for DVT. The patient has been ordered an echo with Doppler. The patient is on liquid diet, out of bed, TEDs stockings, SCDs, physical therapy, occupational therapy, transfusion of 2 units of PRBC ordered, stool occult blood ordered. In addition, the patient will also be started on IV Venofer. The patient will be ordered a thyroid ultrasound. The patient will be resumed on beta hayden. The patient will be given gentle diuresis. The patient will be put on clear liquid diet. Potassium supplementation will be ordered with diuretics. At present, the patient's need for hospitalization, need for further testing and diagnostic therapeutic intervention was discussed and explained with the patient's sister, Erika Jacob. All questions and concerns answered. At this time, the patient is awaiting for a bed on the floor. The patient is still in the emergency room in bed 12. Dictated and electronically signed, not read. Nathan Sorensen MD
--- NOTE | 2017-07-16 09:53 | CARD ---
APPROVED REPORT EKG Measurement Heart [id number] [id number] <Conclusion> Normal sinus rhythm LVH by voltage STTW changes c/w ischemia Q in 3 Prolonged QTc
--- NOTE | 2017-07-16 12:08 | CP.PCM.CON ---
<Barbra Waters - Last Filed: 07/16/17 12:05> History of Present Illness - History of Present Illness History of Present Illness: Seen and examined in the emergency room earlier today, chart review. Sister Shanika at bedside. Request for GI consult is for GI bleed. HPI: This is a 52-year-old female with past medical history of early grade C esophagitis,bipolar disorder, and GERD was brought to the emergency room by her sister, Erika with complaints of bilateral lower extremity edema and patient complaining of shortness of breath. This patient is well known to our service, was last seen in our office on for postprocedure endoscopy, was given a request for blood work and plan for CT scan of chest abdomen and pelvis depending upon blood work. The patient denies symptoms of nausea, vomiting, does report some diffuse lower abdominal pain but denies any hematemesis, melena or bright red blood per rectum. Last bowel movement has been a few days ago but reports only having brown stool. On admission the patient had CT scan of the chest with PE protocol that was negative. Also had Dopplers of lower extremities which was negative. On admission she was found to have a hemoglobin of 6.1 status post 1 unit and is currently receiving second unit. Last hemoglobin at 4 AM was 6.7. No reports of overt GI bleed. Denies symptoms of chest pain, fever or chills. On recent endoscopy done in June/2017 she was found to have multiple cratered esophageal ulcers with no bleeding with the largest dimension measuring 1.5 cm with recent food impaction that passed. It was discussed with the patient to and eat soft food and chew well.patient denies taking any NSAIDs, takes Tylenol for pain. Yesterday, the patient saw [facility] for previous complaints of breast pain which has slight improvement now. Last colonoscopy was done 01/26/16 and found small internal hemorrhoid, moderately redundant sigmoid, diffuse area of nodular mucosa in terminal ilum. Biopsy of terminal ileum showed no active inflammation or dysplasia. Past medical history: GERD, gastric ulcers, grade C esophagitis, panic attacks, obesity, mitral valve regurgitation, depression, bipolar disorder, gallstones Family history:Colon cancer in her mother. Social History:denies smoking, EtOH or drug use Allergies: No known drug allergies Medications: Reviewed as per MAR ROS: Systems reviewed with positive finding see HPI Past Patient History - Infectious Disease Hx of Infectious Diseases: None - Tetanus Immunizations Tetanus Immunization: Unknown - Past Social History Smoking Status: Never Smoked - CARDIAC Hx Cardiac Disorders: Yes Hx Mitral Valve Prolapse: Yes - PULMONARY Hx Respiratory Disorders: No - NEUROLOGICAL Hx Neurological Disorder: No - HEENT Hx HEENT Problems: Yes (patient wears eyeglasses) - RENAL Hx Chronic Kidney Disease: No - ENDOCRINE/METABOLIC Hx Endocrine Disorders: No - HEMATOLOGICAL/ONCOLOGICAL Hx Blood Disorders: No - INTEGUMENTARY Hx Dermatological Problems: No - MUSCULOSKELETAL/RHEUMATOLOGICAL Hx Musculoskeletal Disorders: No - GASTROINTESTINAL Hx Gastrointestinal Disorders: Yes Hx Gall Bladder Disease: Yes (CHOLELITHIASIS) - GENITOURINARY/GYNECOLOGICAL Hx Genitourinary Disorders: Yes Hx Urinary Tract Infection: Yes Other/Comment: ENDOMETRIOSIS - PSYCHIATRIC Hx Anxiety: Yes Hx Depression: Yes Hx Emotional Abuse: No Hx Physical Abuse: No Hx Substance Use: No - SURGICAL HISTORY Hx Appendectomy: Yes - ANESTHESIA Hx Anesthesia Reactions: No Hx Malignant Hyperthermia: No Meds Allergies/Adverse Reactions: Allergies Allergy/AdvReac Type Severity Reaction Status Date / Time No Known Allergies Allergy Verified 07/15/17 18:09 - Medications Medications: Current Medications Acetaminophen (Tylenol 325mg Tab) 650 mg PO Q6H PRN PRN Reason: TEMP>=99.5F Acetaminophen (Tylenol 650 Mg Supp) 650 mg RC Q4H PRN PRN Reason: TEMP>=99.5F Aripiprazole (Abilify) 5 mg PO QAM [facility] Last Admin: 07/16/17 11:22 Dose: 5 mg Escitalopram Oxalate (Lexapro) 10 mg PO QAM [facility] Last Admin: 07/16/17 11:20 Dose: 10 mg Furosemide (Lasix) 20 mg IVP Q12H [facility] Last Admin: 07/16/17 01:53 Dose: 20 mg Iron Sucrose 200 mg/ Sodium (Chloride) 110 mls @ 110 mls/hr IVPB DAILY [facility] Stop: 07/19/17 10:59 Last Admin: 07/16/17 11:22 Dose: Not Given Lorazepam (Ativan) 2 mg PO QID [facility] PRN Reason: Protocol Last Admin: 07/16/17 01:52 Dose: 2 mg Metoprolol Tartrate (Lopressor) 25 mg PO Q12H [facility] Last Admin: 07/16/17 01:53 Dose: 25 mg Pantoprazole Sodium (Protonix Inj) 40 mg IVP Q12H [facility] Last Admin: 07/16/17 08:14 Dose: 40 mg Potassium Chloride (K-Dur 20 Meq Er Tab) 20 meq PO DAILY [facility] Last Admin: 07/16/17 11:21 Dose: 20 meq Physical Exam - Constitutional Appears: No Acute Distress - Head Exam Head Exam: NORMOCEPHALIC - Eye Exam Eye Exam: Normal appearance. absent: Scleral icterus - ENT Exam ENT Exam: Mucous Membranes Moist - Neck Exam Neck exam: Positive for: Normal Inspection - Respiratory Exam Respiratory Exam: NORMAL BREATHING PATTERN. absent: Respiratory Distress - Cardiovascular Exam Cardiovascular Exam: +S1, +S2 - GI/Abdominal Exam GI & Abdominal Exam: Normal Bowel Sounds, Soft. absent: Distended, Guarding, Organomegaly, Rebound, Tenderness - Extremities Exam Extremities exam: Positive for: pedal edema, pedal pulses present (bilateral lower extremity edema with minimal erythema). Negative for: calf tenderness - Neurological Exam Neurological exam: Alert, Oriented x3 - Skin Skin Exam: Dry, Warm Results - Vital Signs Recent Vital Signs: Last Vital Signs Temp 99 F 07/16/17 11:11 Pulse 90 07/16/17 11:11 Resp 18 07/16/17 11:11 BP 138/66 07/16/17 11:11 Pulse Ox 96 07/16/17 08:16 - Labs Result Diagrams: 07/16/17 04:30 07/16/17 04:30 Labs: Laboratory Results - last 24 hr 07/16/17 07/16/17 04:30 04:30 WBC 7.1 RBC 3.91 Hgb 6.7 L* Hct 26.1 L MCV 66.8 L MCH 17.1 L MCHC 25.7 L RDW 22.2 H Plt Count 389 MPV 8.6 Gran % 73.7 H Lymph % (Auto) 15.9 L Toombs % (Auto) 9.0 H Eos % (Auto) 1.3 L Baso % (Auto) 0.1 Gran # 5.24 Lymph # (Auto) 1.1 L Toombs # (Auto) 0.6 Eos # (Auto) 0.1 Baso # (Auto) 0.01 Sodium 144 Potassium 3.9 Chloride 107 Carbon Dioxide 24 Anion Gap 16 BUN 11 Creatinine 0.7 Est GFR ( Amer) > 60 Est GFR (Non-Af Amer) > 60 Random Glucose 104 Calcium 8.6 Magnesium 2.1 Total Bilirubin 1.6 H Direct Bilirubin 0.1 AST 15 ALT 20 Alkaline Phosphatase 90 Total Protein 6.0 Albumin 3.4 Globulin 2.6 Albumin/Globulin Ratio 1.3 Triglycerides 54 Cholesterol 111 L LDL Cholesterol Direct 60 HDL Cholesterol 39 Assessment & Plan - Assessment and Plan (Free Text) Assessment: Assessment: Anemia Esophageal ulcers, recent endoscopy June/2017 and found to have LA grade C esophagitis GERD Bipolar disorder Bilateral lower extremity edema, lower extremity Doppler negative Plan: Continue Protonix 40 every 12 IV iron infusion Monitor H&H and for overt GI bleed Request serum gastrin level Would benefit from CT scan of abdomen and pelvis with oral and IV contrast, we will currently hold on this as patient had CT scan of chest with IV contrast on admission. Check renal function in a.m. Patient will need repeat endoscopy to assess healing of esophageal ulcers on Full liquid Thank you for this consult and for allowing us to participate in your patient's care, further recommendations based upon clinical course. Seen and discussed with Dr. Toledo. <Dayron Toledo V - Last Filed: 07/17/17 10:24> Meds - Medications Medications: Current Medications Acetaminophen (Tylenol 325mg Tab) 650 mg PO Q6H PRN PRN Reason: TEMP>=99.5F Acetaminophen (Tylenol 650 Mg Supp) 650 mg RC Q4H PRN PRN Reason: TEMP>=99.5F Aripiprazole (Abilify) 5 mg PO QAM [facility] Last Admin: 07/16/17 11:22 Dose: 5 mg Ergocalciferol (Drisdol 50,000 Intl Units Cap) 1 cap PO Q7D [facility] Escitalopram Oxalate (Lexapro) 10 mg PO QAM [facility] Last Admin: 07/16/17 11:20 Dose: 10 mg Iron Sucrose 200 mg/ Sodium (Chloride) 110 mls @ 110 mls/hr IVPB DAILY [facility] Stop: 07/19/17 10:59 Last Admin: 07/16/17 11:22 Dose: Not Given Lorazepam (Ativan) 2 mg PO QID [facility] PRN Reason: Protocol Last Admin: 07/16/17 17:06 Dose: Not Given Metoprolol Tartrate (Lopressor) 25 mg PO Q12H [facility] Last Admin: 07/16/17 13:46 Dose: 25 mg Pantoprazole Sodium (Protonix Inj) 40 mg IVP Q12H [facility] Last Admin: 07/16/17 08:14 Dose: 40 mg Potassium Chloride (K-Dur 20 Meq Er Tab) 20 meq PO DAILY [facility] Last Admin: 07/16/17 11:21 Dose: 20 meq Results - Vital Signs Recent Vital Signs: Last Vital Signs Temp 97.9 F 07/16/17 20:51 Pulse 99 H 07/16/17 20:51 Resp 18 07/16/17 20:51 BP 138/59 L 07/16/17 20:51 Pulse Ox 96 07/16/17 08:16 - Labs Result Diagrams: 07/17/17 06:20 07/17/17 06:20 Labs: Laboratory Results - last 24 hr 07/16/17 07/16/17 07/16/17 04:30 04:30 04:30 WBC 7.1 RBC 3.91 Hgb 6.7 L* Hct 26.1 L MCV 66.8 L MCH 17.1 L MCHC 25.7 L RDW 22.2 H Plt Count 389 MPV 8.6 Gran % 73.7 H Lymph % (Auto) 15.9 L Toombs % (Auto) 9.0 H Eos % (Auto) 1.3 L Baso % (Auto) 0.1 Gran # 5.24 Lymph # (Auto) 1.1 L Toombs # (Auto) 0.6 Eos # (Auto) 0.1 Baso # (Auto) 0.01 Sodium 144 Potassium 3.9 Chloride 107 Carbon Dioxide 24 Anion Gap 16 BUN 11 Creatinine 0.7 Est GFR ( Amer) > 60 Est GFR (Non-Af Amer) > 60 Random Glucose 104 Calcium 8.6 Magnesium 2.1 Total Bilirubin 1.6 H Direct Bilirubin 0.1 AST 15 ALT 20 Alkaline Phosphatase 90 Total Protein 6.0 Albumin 3.4 Globulin 2.6 Albumin/Globulin Ratio 1.3 Triglycerides 54 Cholesterol 111 L LDL Cholesterol Direct 60 HDL Cholesterol 39 25-OH Vitamin D Total < 12.8 L Attending/Attestation - Attestation I have personally seen and examined this patient.: Yes I have fully participated in the care of the patient.: Yes I have reviewed all pertinent clinical information: Yes Notes (Text): This is an addendum to GI consult report dictated by Barbra Waters APN.The patient was seen and examined earlier. Medical records, lab studies, imagings were reviewed. Last 24 hours events reviewed. Agreed with the above treatment plan as outlined in Barbra Waters APN's notes the with the addition of the following patient was seen and evaluated in the emergency room. Patient's sister was at bedside denies any melena or bright red blood per rectum she's mentioning that she has changed her diet and she is taking a soft diet and cut into small pieces and eating. Denies any history of choking episode. Previous endoscopy reports were reviewed. Patient did have a low-grade see esophageal ulcerations. Narrowing at the upper mid esophageal area. No intrinsic L lesion noticed. The ulcerations appear to superficial. Previous biopsies done and did not reveal any new pain nausea. Last endoscopy in view of the suspected possibly foreign body stasis ulceration no biopsies done. The plan was to do a repeat endoscopy after the CT scan. Patient did not follow up with the blood work and CAT scan. Patient is admitted now with a severe anemia thickness. CT done with IV contrast was reviewed On examination abdomen soft there is no tenderness Patient was receiving blood transfusion Discussed with Dr. Veronica We'll request the CT scan with by mouth contrast as the patient already had a CT of the chest with IV contrast Continue high-dose PPI Gross follow up hemoglobin and hematocrit Would benefit from upper GI endoscopy will consider tomorrow morning The differential diagnosis therefore this ulcerations unclear. We will need to consider local etiology versus extrinsic compression versus motility disorder less likely neoplasia also should be considered Discussed with the patient's family at length Thank you very much for allowing us to precipitate in the care of the patient 07/16/17 21:10
[2017-07-16 12:57] LABS: FERRITIN 4.9 ng/mL
[2017-07-16 13:27] LABS: FOLATE 8.4 ng/mL
--- NOTE | 2017-07-16 15:47 | PN ---
DATE: 07/16/2017 SUBJECTIVE: The patient is seen in ER bed 6. The patient is lying in the bed. The patient is comfortable. The patient received PRBC overnight. PHYSICAL EXAMINATION: VITAL SIGNS: T-max of 99.8 Telemetry shows heart rate is 90-94; blood pressure is 138/66, 131/58, 119/65; respiration 18-20; O2 sat 96%. HEENT: Head examination normocephalic, atraumatic. HEENT examination shows pale conjunctivae. Dry oral mucosa. No neck rigidity. CHEST: Kyphosis. LUNGS: Shows decreased breath sounds at the bases. Occasional rhonchi noted, upper lung harry anteriorly. CARDIOVASCULAR: S1, S2, regular rhythm. Positive systolic murmur, left sternal border, right second intercostal space. ABDOMEN: Protuberant, obese. GENITALIA: Female. EXTREMITY: Shows positive lymphedema and greater than 3+ nonpitting edema. MUSCULOSKELETAL: Examination shows a body mass index of 47. NEUROLOGIC: The patient is alert, awake, responsive, in no distress. Gait examination is not tested. DIAGNOSTICS: On 07/16/2017, WBC 7.1, hemoglobin and hematocrit 6.7 and 26, MCV 66, platelet 389, granulocytes 74. Sodium 144, potassium 3.9, chloride 107, CO2 of 24, anion gap 16, BUN 11, creatinine 0.7, GFR greater than 60, glucose 104, calcium 8.6, magnesium 2.1, iron 11, TIBC 444, saturation 2, total bili 1.6. LFTs are normal. Cholesterol 111, 119; triglyceride 54 and 41; LDL 60 and 67; HDL 39 and 45. Blood type is A positive. The patient was ordered to receive 2 units of PRBC overnight, but only received 1 unit. EKG shows sinus rhythm, Q-wave in III, ST changes in the lateral leads noted. IMPRESSION AND PLAN: 1. Low-grade fever, etiology undetermined. 2. Severe symptomatic anemia, microcytic anemia with symptoms of shortness of breath, dyspnea on exertion and bilateral lower extremity swelling. 3. Status post 1 unit of packed red blood cells. 4. Tachycardia. 5. Microcytic anemia with granulocytosis. 6. Elevated reticulocyte count. 7. Elevated D-dimer of greater than 500, etiology unclear. 8. Severe iron deficiency. 9. Possible subclinical hyperthyroidism with elevated thyroxine level. 10. A+ blood type. 11. History of moderate mitral regurgitation. 12. History of mild pulmonary arterial hypertension. 13. Abnormal EKG with nonspecific ST changes. 14. Morbid obesity with elevated body mass index of 47. 15. Bibasilar atelectasis, scarring and intralobular septal thickening with bilateral pulmonary mosaic pattern. 16. Cardiomegaly. 17. Coronary artery calcification. 18. Moderate-sized hiatal hernia. 19. Calcified cholelithiasis. 20. Elevated right hemidiaphragm. 21. Hypertensive cardiovascular disease. 22. 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 PLAN: At this time, the patient is ordered 2 more additional units of PRBC for a goal hemoglobin of around 10 g. The patient has been ordered Tylenol p.r.n. for low-grade fever. The patient's B12, folate have been pending. Repeat CMP, LFT, magnesium ordered. H. pylori titers ordered. Repeat CBC ordered. CURRENT CONSULTATION: 1. Cardiology. 2. Gastroenterology. 3. TCU referral ordered. The patient is ordered Abilify 5 mg a.m., Ativan 2 mg q.i.d., IV Venofer 200 mg IV daily, K-Dur 20 mEq daily, Lasix 20 mg IV q. 12, Lexapro 10 mg daily, Lopressor 25 mg twice a day, Protonix 40 mg IV q. 12, Tylenol 650 mg q. 4 and q. 6 hours p.r.n. for temperature greater than or equal to 99.5. Thyroid ultrasound pending. Echo with Doppler pending. Liquid diet ordered. Out of bed, FATOU stockings, SCDs, occupational therapy, physical therapy ordered. The patient's condition, diagnoses, management discussed with the patient's sister at length. We are also discussed with the Gastroenterology. The patient's further management will be dependent upon the patient's clinical condition, hemodynamic status and as per the patient's response to therapeutic intervention. Dictated and electronically signed, not read. Nathan Sorensen MD
[2017-07-16] MEDS ORDERED: Iohexol 240 (50 ml) ONE (17:04)
[2017-07-16 17:43] VITALS: BMI 46.5
[2017-07-16] MEDS ORDERED: Influenza Vaccine 60 mcg/0.5 mL SYR (4YR UP) IM ONE (17:43)
[2017-07-16] MEDS ORDERED: Pneumococcal 23-Valent Vaccine IM ONE (17:43)
--- NOTE | 2017-07-16 18:18 | US ---
HISTORY: Leg pain and swelling. Evaluate for DVT PHYSICIAN(S): Hugo Underwood MD. TECHNIQUE: Duplex sonography and color-flow Doppler with graded compression were used to evaluate the deep venous systems of both lower extremities. The exam is very limited by body habitus and edema. The tibial veins are not adequately seen. FINDINGS: The visualized deep venous systems of both lower extremities are sonographically normal and compressible. Normal wave forms and augmentation are seen. There is no sonographic evidence for deep venous thrombosis in the visualized segments of both lower extremities. IMPRESSION: No sonographic evidence for deep venous thrombosis in the visualized segments of both lower extremities. Very limited study.
[2017-07-16] MEDS ORDERED: Ergocalciferol 50,000 Intl Units Cap PO SCH (19:30)
--- NOTE | 2017-07-16 20:15 | CT ---
EXAM: CT Abdomen and Pelvis Without Intravenous Contrast CLINICAL HISTORY: 52 years old, female; Signs and symptoms; Other: Anemia, leg edema, R/O mass; Additional info: Anemia, R/O mass TECHNIQUE: Axial computed tomography images of the abdomen and pelvis without intravenous contrast. All CT scans at this facility use one or more dose reduction techniques, viz.: automated exposure control; ma/kV adjustment per patient size (including targeted exams where dose is matched to indication; i.e. head); or iterative reconstruction technique. Coronal and sagittal reformatted images were created and reviewed. COMPARISON: CT - ABD PELVIS PO CONTRAST ONLY 2017-04-28 10:57 FINDINGS: Limitations: Lack of intravenous contrast. Motion artifact - mild to moderate. Lower thorax: Trace to small RIGHT pleural effusion. Mild atelectasis/scarring. Moderate cardiomegaly. Contrast within esophagus may represent reflux. Moderate-sized hiatal hernia. ABDOMEN: Liver: Unremarkable. Gallbladder and bile ducts: Calcified gallstones. No significant ductal dilation. Pancreas: Unremarkable. No ductal dilation. Spleen: No splenomegaly. Adrenals: No mass. Kidneys and ureters: No renal calculi. No hydronephrosis. Stomach and bowel: No definite mural thickening. No obstruction. Appendix: No findings to suggest acute appendicitis. PELVIS: Bladder: Unremarkable. No stones. Reproductive: Unremarkable as visualized. ABDOMEN and PELVIS: Intraperitoneal space: No significant fluid collection. No free air. Bones/joints: Degenerative changes of lower lumbar spine. No acute fracture. Soft tissues: [id number] stranding within subcutaneous tissues of hip/proximal thighs. Vasculature: Unremarkable. No aneurysm. Lymph nodes: Several subcentimeter short axis mesenteric lymph nodes, nonspecific. IMPRESSION: 1. Cholelithiasis. 2. Cardiomegaly with right pleural effusion. 3. Incidental/non-acute findings are described above.
--- NOTE | 2017-07-17 01:41 | CON ---
DATE: 07/16/2017 CARDIOLOGY CONSULTATION HISTORY OF PRESENT ILLNESS: The patient is a 52-year-old woman who presented with a progressive shortness of breath and pedal edema. PAST MEDICAL HISTORY: Notable for documented mitral regurgitation in the past. Her last evaluation revealed her ejection fraction was 56% with moderate mitral regurgitation. There was mild pulmonary hypertension. No diabetes mellitus noted. No chest pain noted. In addition, her past medical history includes a cardiac catheterization, which revealed no critical coronary lesions. She denies chest pain. SOCIAL HISTORY: The patient does not smoke. REVIEW OF SYSTEMS: Is dominated by dyspnea as well as pedal edema. In the emergency room, she was found to have a hemoglobin that was 6. PHYSICAL EXAMINATION: VITAL SIGNS: Blood pressure 122/60, heart rate in the 90s. NECK: Negative JVD. LUNGS: Bilateral rales. HEART: Reveal S1, S2 with short systolic ejection murmur. EXTREMITIES: 1 to 2+ edema. LABORATORY DATA: Revealed a bilirubin of 1.6. BUN and creatinine are normal. The hemoglobin is 6.7 with a white count of 7.1. The EKG reveals normal sinus rhythm with no acute changes. CT scan reveals no evidence of pulmonary embolism. IMPRESSION: 1. Acute systolic congestive heart failure.. 2. Mitral regurgitation. 3. Marked anemia. 4. History of bleeding ulcers in the past. 5. Dyspnea. 6. Pedal edema. Given these findings, we will obtain an echocardiogram to evaluate her LV function and the status of her mitral regurgitation. In addition, Lasix has been ordered to accompany her transfusions. The patient will need red blood cells. Hugo Lockwood MD
[2017-07-17 07:30] LABS: BASO # 0.03 K/mm3 (0.0-2.0); BASO % 0.3 % (0.0-3.0); EOS # 0.2 (0.0-0.7); EOS % 1.5 % (1.5-5.0); GRAN # 7.91 (1.4-6.5); GRAN % 77.4 % (50.0-68.0); LYMPH # 1.2 (1.2-3.4); LYMPH % 11.7 % (22.0-35.0); MEAN CELL VOLUME 70.8 fl (80.0-105.0); MEAN CORPUSCULAR HEMOGLOBIN 20.1 pg (25.0-35.0); MEAN CORPUSCULAR HGB CONC 28.4 g/dl (31.0-37.0); MEAN PLATELET VOLUME 8.9 fl (7.0-11.0); MONO # 0.9 (0.1-0.6); MONO % 9.1 % (1.0-6.0); RBC 4.48 10^6/uL (3.5-6.1); RED CELL DISTRIBUTION WIDTH 25.2 % (11.5-14.5); WHITE BLOOD COUNT 10.2 10^3/ul (4.5-11.0)
[2017-07-17 08:03] LABS: ALB/GLOB RATIO 1.3 (1.1-1.8); ALBUMIN 3.2 g/dL (3.0-4.8); ALT/SGPT 21 U/L (7-56); AST/SGOT 16 U/L (14-36); BILIRUBIN,DIRECT 0.1 mg/dL (0.0-0.4); BLOOD UREA NITROGEN 8 mg/dL (7-21); CALCIUM 8.8 mg/dL (8.4-10.5); GFR AFRICAN-AMERICAN > 60; GFR NON-AFRICAN AMERICAN > 60
[2017-07-17] MEDS ORDERED: Propofol 10 mg/ml Inj (20 ML) ONE (09:33)
[2017-07-17] MEDS ORDERED: Sodium Chloride 0.9% 1,000 ML IV SCH (10:00)
--- NOTE | 2017-07-17 10:44 | CARD ---
APPROVED REPORT EKG Measurement Heart [id number] <Conclusion> Sinus tachycardia with occasional premature ventricular complexes STTW changes c/w ischemia Q in 3 Mildly prolonged QTc No change
[2017-07-17] MEDS: Potassium Chloride 20 mEq ER Tab PO SCH (11:06)
[2017-07-17] MEDS ORDERED: Potassium Chloride 10 mEq ER Tab PO STA (13:13)
--- NOTE | 2017-07-17 13:18 | PN ---
DATE: 07/17/2017 CARDIOLOGY FOLLOWUP SUBJECTIVE: The patient's breathing is better. OBJECTIVE: VITAL SIGNS: Blood pressure 146/72, the heart rate is 100. NECK: Negative JVD. LUNGS: Crackles at the bases. HEART: Reveal S1, S2 with 2/6 systolic ejection murmur. EXTREMITIES: Decreased edema. LABORATORY DATA: Potassium is 3.5. Hemoglobin is 9.0 after transfusion. IMPRESSION: 1. Echocardiogram reveals increased left ventricular dimensions sizes. 2. Mitral regurgitation. 3. Congestive heart failure. 4. Marked anemia. Given these findings, once we ruled out a GI source of bleeding, we need to consider mechanical intervention on her mitral regurgitation given the increase in LV size. We suggested [place], followed by the possibility for evaluation for MitraClip. Hugo Lockwood MD
--- NOTE | 2017-07-17 13:49 | CP.PCM.CON ---
History of Present Illness - History of Present Illness History of Present Illness: General Surgery consult for Dr. Chakraborty Consulted for: jejunostomy tube insertion Patient is a 52F with PMH of severe esophagitis and morbid obesity who presented for acute exacerbation of CHF and was found to have severe anemia and cardiomegaly impinging on esophagus. EGD was performed which showed Class D esophagitis and stenosis in the proximal 2/3rds and Class C esophagitis in the distal 1/3rd, and a hiatal hernia. Surgery was consulted for a possible Jejunostomy tube placement. Patient denies any history of hematemesis, melena, hematochezia, nausea, vomiting, dysphagia, chest pain, abdominal pain, or any other GI symptoms. Patient has a PSH of an appendectomy Review of Systems - Review of Systems All systems: reviewed and no additional remarkable complaints except (as per HPI ) - Cardiovascular Cardiovascular: Leg Edema - Respiratory Respiratory: Dyspnea Past Patient History - Infectious Disease Hx of Infectious Diseases: None - Tetanus Immunizations Tetanus Immunization: Unknown - Past Social History Smoking Status: Never Smoked Alcohol: None Drugs: Denies - CARDIAC Hx Cardiac Disorders: Yes Hx Mitral Valve Prolapse: Yes Hx Peripheral Edema: Yes (ble +4 pitting and knees) - PULMONARY Hx Respiratory Disorders: No - NEUROLOGICAL Hx Neurological Disorder: (near syncope) Hx Dizziness: Yes - HEENT Hx HEENT Problems: Yes (patient wears eyeglasses) - RENAL Hx Chronic Kidney Disease: No - ENDOCRINE/METABOLIC Hx Endocrine Disorders: No - HEMATOLOGICAL/ONCOLOGICAL Hx Blood Transfusions: No - INTEGUMENTARY Hx Dermatological Problems: No - MUSCULOSKELETAL/RHEUMATOLOGICAL Hx Falls: No Hx Unsteady Gait: Yes - GASTROINTESTINAL Hx Gastrointestinal Disorders: Yes Hx Gall Bladder Disease: Yes (CHOLELITHIASIS) Hx Gastroesophageal Reflux: Yes Hx Ulcer: Yes Other/Comment: endo 06/13/17 dx severe esophagitis and hiatal hernia - GENITOURINARY/GYNECOLOGICAL Hx Genitourinary Disorders: Yes Hx Urinary Tract Infection: Yes Other/Comment: ENDOMETRIOSIS gone since menopause - PSYCHIATRIC Hx Anxiety: Yes Hx Depression: Yes Hx Emotional Abuse: No Hx Physical Abuse: No Hx Substance Use: No - SURGICAL HISTORY Hx Surgeries: Yes - ANESTHESIA Hx Anesthesia Reactions: No Hx Malignant Hyperthermia: No Meds Allergies/Adverse Reactions: Allergies Allergy/AdvReac Type Severity Reaction Status Date / Time No Known Allergies Allergy Verified 07/15/17 18:09 - Medications Medications: Current Medications Acetaminophen (Tylenol 325mg Tab) 650 mg PO Q6H PRN PRN Reason: TEMP>=99.5F Acetaminophen (Tylenol 650 Mg Supp) 650 mg RC Q4H PRN PRN Reason: TEMP>=99.5F Aripiprazole (Abilify) 5 mg PO QAM [facility] Last Admin: 07/17/17 11:04 Dose: 5 mg Ergocalciferol (Drisdol 50,000 Intl Units Cap) 1 cap PO Q7D [facility] Last Admin: 07/16/17 22:29 Dose: 1 cap Escitalopram Oxalate (Lexapro) 10 mg PO QAM [facility] Last Admin: 07/17/17 11:07 Dose: 10 mg Furosemide (Lasix) 40 mg IVP Q12 [facility] Last Admin: 07/17/17 11:06 Dose: 40 mg Iron Sucrose 200 mg/ Sodium (Chloride) 110 mls @ 110 mls/hr IVPB DAILY [facility] Stop: 07/19/17 10:59 Last Admin: 07/17/17 10:53 Dose: 110 mls/hr Lorazepam (Ativan) 2 mg PO QID [facility] PRN Reason: Protocol Last Admin: 07/17/17 11:04 Dose: 2 mg Metoprolol Tartrate (Lopressor) 25 mg PO Q12H [facility] Last Admin: 07/17/17 11:09 Dose: 25 mg Pantoprazole Sodium (Protonix Inj) 40 mg IVP Q12H [facility] Last Admin: 07/17/17 08:31 Dose: 40 mg Potassium Chloride (K-Dur 20 Meq Er Tab) 20 meq PO DAILY [facility] Last Admin: 07/17/17 11:06 Dose: 20 meq Sucralfate (Carafate Oral Susp) 1 gm PO 0600,1600 [facility] Physical Exam - Constitutional Appears: No Acute Distress, Unkempt - Head Exam Head Exam: ATRAUMATIC, NORMOCEPHALIC - Eye Exam Eye Exam: Normal appearance. absent: Conjunctival injection, Scleral icterus - ENT Exam ENT Exam: Mucous Membranes Moist, Normal Oropharynx - Respiratory Exam Respiratory Exam: NORMAL BREATHING PATTERN. absent: Accessory Muscle Use, Respiratory Distress - Cardiovascular Exam Cardiovascular Exam: RRR - GI/Abdominal Exam GI & Abdominal Exam: Distended, Soft. absent: Rigid, Tenderness - Extremities Exam Extremities exam: Positive for: pedal edema. Negative for: calf tenderness, tenderness - Neurological Exam Neurological exam: Alert, Oriented x3 - Psychiatric Exam Psychiatric exam: Flat Affect, Normal Mood - Skin Skin Exam: Dry, Intact, Normal Color, Warm Results - Vital Signs Recent Vital Signs: Last Vital Signs Temp 97.8 F 07/17/17 10:27 Pulse 101 H 07/17/17 11:09 Resp 20 07/17/17 10:27 BP 110/62 07/17/17 11:09 Pulse Ox 99 07/17/17 10:27 - Labs Result Diagrams: 07/17/17 06:20 07/17/17 06:20 - Imaging and Cardiology CT scan - abdomen Status: Image reviewed by me, Report reviewed by me CT scan - pelvis Status: Image reviewed by me, Report reviewed by me CT scan - chest Status: Image reviewed by me, Report reviewed by me Assessment & Plan - Assessment and Plan (Free Text) Assessment: 52 year old obese female with severe esophagitis necessitating liquid diet PMH: -No indication for emergent surgical intervention. Patient is a poor surgical candidate d/t morbid obesity and current cardiorespiratory status. Will discuss patient's case further with GI and primary and patient. Will consider open jejunostomy -strong PPI's -Medical management per primary -F/U GI recs -Continue CLD at this time -optimize medical status Seen and examined with Dr. Rodri Rizo,PGY2
--- NOTE | 2017-07-17 15:33 | US ---
HISTORY: elevated TB/gallstones COMPARISON: CT abdomen pelvis from 07/16/2017 TECHNIQUE: Grayscale imaging was performed. FINDINGS: LIVER: Measures 14.9 cm. Normal echogenicity of the liver parenchyma. No mass. No intrahepatic bile duct dilatation. GALLBLADDER: The gallbladder is contracted and there are multiple gallstones. No wall thickening or pericholecystic fluid COMMON BILE DUCT: Measures 2.0 mm. No stones. No dilatation. PANCREAS: Unremarkable as visualized. No mass. No ductal dilatation. RIGHT KIDNEY: Measures 11.7cm. Normal echogenicity. No calculus, mass, or hydronephrosis. LEFT KIDNEY: Measures 12.1cm. Normal echogenicity. No calculus, mass, or hydronephrosis. SPLEEN: Normal in size and contour. No mass. AORTA: No aneurysmal dilatation. IVC: Unremarkable. OTHER FINDINGS: None. IMPRESSION: Cholelithiasis.
--- NOTE | 2017-07-17 16:19 | US ---
HISTORY: ??THYRPOD NODULES/?HYPERTHYROIDISM TECHNIQUE: Grayscale imaging was performed. COMPARISON: None FINDINGS: RIGHT LOBE: Measures 3.9 x 1.4 x 1.3 cm. There is diffuse heterogeneous echotexture with normal vascular flow. Nodules: None LEFT LOBE: Measures 3.8 x 1.5 x 1.5 cm. There is diffuse heterogeneous echotexture with normal vascular flow. Nodules: None ISTHMUS: Measures 0.4 cm. There is diffuse heterogeneous echotexture with normal vascular flow. Nodules: None OTHER FINDINGS: None . IMPRESSION: Heterogeneous thyroid gland without discrete solid or cystic nodule.
[2017-07-17] MEDS: Sucralfate 1 gm/10 ml Oral Susp UD PO SCH (16:40)
--- NOTE | 2017-07-18 02:35 | PN ---
DATE: SUBJECTIVE: The patient was seen in the recovery room after the patient underwent endoscopy. The patient was seen and examined with the medical management specialist. The patient was later on seen and examined in room 568, bed 1. The patient was seen between the hours of 10:00 a.m. and 11:00 a.m. and later in the day. The patient's sister was at bedside. The patient's EGD finding and all the other diagnostic and therapeutic intervention reviewed with the sample clerk, Dr. Toledo. The patient is seen comfortably in the recovery room. PHYSICAL EXAMINATION: VITAL SIGNS: In the last 24 hours, T-max is 99.9, down to 98 and 97.8. Heart rate 94, 99, 105, 107, 111. Blood pressure 138/59, 137/97, 147/72, 132/61, 140/80; respirations 20; O2 sat 99%. Intake output noted. HEENT: The patient's head examination normocephalic, atraumatic. HEENT examination shows pinkish pale conjunctivae. Anicteric sclerae. No oropharyngeal lesion. NECK: Short and supple. CHEST: Kyphosis. LUNGS: Shows questionable decreased breath sound at the left base. CARDIOVASCULAR: S1, S2. Regular rhythm. Positive systolic murmur, left sternal border, right second intercostal space, left second intercostal space. ABDOMEN: Morbidly obese. No hepatosplenomegaly palpated. No guarding. No rigidity. No rebound tenderness. GENITALIA: Female. RECTAL: Deferred. EXTREMITIES: Lower extremity examination shows chronic nonpitting swelling of the lower extremity. MUSCULOSKELETAL: Shows a body mass index of 47. NEUROLOGIC: The patient is alert, awake, responsive. Cranial nerves II through XII limited. Gait examination could not be tested. DIAGNOSTICS: On 07/17/2017, WBC 10.2, hemoglobin and hematocrit 9 and 32, MCV 71, platelet 358. Granulocytes 77% segs, retic count is 2.25. Sodium 138, potassium 3.5, chloride 103, CO2 of 26, anion gap 14, BUN 8, creatinine 0.6, GFR greater than 60, glucose 90, calcium 8.8, magnesium 2.0, total bili 2.4. The LFTs are normal. The patient received 4 units of PRBC. The patient had a thyroid ultrasound, abdominal pelvis CAT scan and abdominal ultrasound all reviewed and explained to the patient's sister. The patient's endoscopy report reviewed and discussed with the sample clerk and the patient's sister at length. All questions concerned answered by me and Dr. Toledo to the patient's sister. EKG was reviewed. Echo results are pending. IMPRESSION AND PLAN: 1. Status post esophagogastroduodenoscopy. 2. [place] grade D esophagitis extending from 24 cm level from the incisors. 3. [place] grade C distal esophageal esophagitis. 4. A 5 cm hiatal hernia. 5. Gastric antral inflammation. 6. Gastritis. 7. Moderate esophageal stenosis at 24 cm from incisors to midesophageal area. 8. Tachycardia. 9. Hypertension. 10. Super morbid obesity. 11. Microcytic anemia. 12. Status post packed red blood cell transfusion x4. 13. Elevated reticulocyte count of greater than 2.25. 14. Elevated D-dimer, etiology undetermined. 15. Hypokalemia. 16. Hyperbilirubinemia. 17. Hypovitaminosis D. 18. Bilateral lower extremity nonpitting lymphedema. 19. Severe vitamin B12 deficiency with vitamin B12 level of 208. 20. Relative folate deficiency. 21. Trace right pleural effusion. 22. Moderate cardiomegaly. 23. Moderate-sized hiatal hernia. 24. Atelectasis and scarring. 25. Calcified cholelithiasis. 26. Degenerative joint disease of the lumbar spine. 27. Hips and proximal thighs subcutaneous tissue stranding, etiology undetermined. 28. Subcentimeter mesenteric lymphadenopathy, nonspecific 29. Heterogeneous thyroid gland without nodules. 30. Multiple cholelithiasis. 31. Sinus tachycardia. 32. Questionable old inferior wall myocardial infarction. 33. Mitral regurgitation with increasing left ventricular size. The patient's management was discussed extensively with Gastroenterology, their recommendation is that the patient needs to be on clear liquid diet of pureed diet. The patient needs to be on high-dose proton pump inhibitor with Carafate and the patient should be evaluated by Surgery for a possible elective jejunostomy tube for recovery and healing of the esophagitis. The patient's preliminary echocardiogram report shows mitral regurgitation. For which the patient will require mechanical intervention because there is left ventricular dilatation and the patient will be evaluated for the possibility of a MitraClip. The patient's case was referred for surgical consultation for jejunostomy tube evaluation. Gastroenterology has recommended clear liquid diet, high-dose proton pump inhibitor, Carafate and consideration for jejunostomy and the Cardiology has recommended mechanical intervention for mitral regurgitation. Gastroenterology does not recommend transesophageal echocardiogram due to severe esophagitis and the possibility of esophageal perforation. Cardiology recommendations are to possibly consider mechanical intervention for mitral regurgitation given the increasing left ventricular size to MitraClip. At this time, the patient is consulted with Surgery. The patient has been seen by Gastroenterology, Cardiology. PLAN: At this time, the patient has been ordered serial labs. Gastrin level ordered by Gastroenterology. Current consultation: Cardiology, Gastroenterology, Surgery, referral to TCU. CURRENT MEDICATIONS: 1. Abilify 5 mg a.m. 2. Ativan 2 mg q.i.d. 3. Carafate oral suspension 1 g twice a day. 4. Drisdol 50,000 weekly. 5. iron 200 mg IV daily. 6. The patient has been given potassium 20 mEq daily, which will be increased to twice a day because the patient's potassium is in low normal. The patient has been supplemented for today's low potassium. The patient's K-Dur will be increased to twice a day. 7. The patient is on Lasix 40 mg IV q. 12, increased by Dr. Hugo Lockwood. 8. The patient is on Lexapro 10 mg daily. 9. Lopressor increased to 25 mg q. 8. 10. The patient was given potassium riders. 11. The patient is on Protonix 40 IV q. 12. 12. Tylenol 650 q. 6 p.r.n. 13. Repeat EKG ordered. The patient has been placed on liquid diet in anticipation for evaluation by Surgery for possible jejunostomy tube. The patient has been ordered out of bed, FATOU stockings, SCDs, physical therapy, occupational therapy. The patient's sister, Erika Jacob was explained about the patient's diagnostic test results and all the detailed recommendation by the sample clerk was extensively explained by Dr. Toledo directly to the patient's sister, Erika Jacob, which was reinforced by me which the patient's sister acknowledged and understand. Dictated and electronically signed, not read. Nathan Sorensen MD [facility] # [id number]
[2017-07-18] MEDS: Sucralfate 1 gm/10 ml Oral Susp UD PO SCH ×2 (05:23→16:12)
[2017-07-18 07:20] LABS: BASO # 0.02 K/mm3 (0.0-2.0); BASO % 0.2 % (0.0-3.0); EOS # 0.2 (0.0-0.7); EOS % 2.4 % (1.5-5.0); GRAN # 7.06 (1.4-6.5); GRAN % 75.5 % (50.0-68.0); LYMPH # 1.2 (1.2-3.4); LYMPH % 12.5 % (22.0-35.0); MEAN CORPUSCULAR HEMOGLOBIN 20.1 pg (25.0-35.0); MEAN PLATELET VOLUME 8.7 fl (7.0-11.0); MONO # 0.9 (0.1-0.6); MONO % 9.4 % (1.0-6.0); RBC 4.47 10^6/uL (3.5-6.1); RED CELL DISTRIBUTION WIDTH 26.6 % (11.5-14.5); WHITE BLOOD COUNT 9.4 10^3/ul (4.5-11.0)
[2017-07-18 08:23] LABS: ALB/GLOB RATIO 1.2 (1.1-1.8); ALBUMIN 3.2 g/dL (3.0-4.8); ALT/SGPT 18 U/L (7-56); AST/SGOT 16 U/L (14-36); BILIRUBIN,DIRECT 0.3 mg/dL (0.0-0.4); BLOOD UREA NITROGEN 9 mg/dL (7-21); CALCIUM 8.5 mg/dL (8.4-10.5); GFR AFRICAN-AMERICAN > 60; GFR NON-AFRICAN AMERICAN > 60; MAGNESIUM 2.1 mg/dL (1.7-2.2)
[2017-07-18] MEDS: Potassium Chloride 20 mEq ER Tab PO SCH ×2 (09:37→17:31)
--- NOTE | 2017-07-18 09:57 | CP.PCM.PN ---
Subjective - Date & Time of Evaluation Date of Evaluation: 07/18/17 Time of Evaluation: 09:52 - Subjective Subjective: Surgery: Dr. Campbell Pt seen and examined. Resting comfortably in bed. Tolerated CLD. No complaints. Objective - Vital Signs/Intake and Output Vital Signs (last 24 hours): Temp Pulse Resp BP Pulse Ox 98.9 F 100 H 22 130/70 97 07/18/17 08:13 07/18/17 09:36 07/18/17 08:13 07/18/17 09:36 07/18/17 08:13 Intake and Output: 07/18/17 07/18/17 06:59 18:59 Intake Total 120 Output Total 1 Balance 119 - Medications Medications: Current Medications Acetaminophen (Tylenol 325mg Tab) 650 mg PO Q6H PRN PRN Reason: TEMP>=99.5F Acetaminophen (Tylenol 650 Mg Supp) 650 mg RC Q4H PRN PRN Reason: TEMP>=99.5F Aripiprazole (Abilify) 5 mg PO QAM [facility] Last Admin: 07/18/17 09:36 Dose: 5 mg Ergocalciferol (Drisdol 50,000 Intl Units Cap) 1 cap PO Q7D [facility] Last Admin: 07/16/17 22:29 Dose: 1 cap Escitalopram Oxalate (Lexapro) 10 mg PO QAM [facility] Last Admin: 07/18/17 09:37 Dose: 10 mg Furosemide (Lasix) 40 mg IVP Q12 [facility] Last Admin: 07/18/17 09:36 Dose: 40 mg Iron Sucrose 200 mg/ Sodium (Chloride) 110 mls @ 110 mls/hr IVPB DAILY [facility] Stop: 07/19/17 10:59 Last Admin: 07/17/17 10:53 Dose: 110 mls/hr Lorazepam (Ativan) 2 mg PO QID [facility] PRN Reason: Protocol Last Admin: 07/18/17 09:37 Dose: 2 mg Metoprolol Tartrate (Lopressor) 25 mg PO Q8H [facility] Last Admin: 07/18/17 09:36 Dose: 25 mg Pantoprazole Sodium (Protonix Inj) 40 mg IVP Q12H [facility] Last Admin: 07/18/17 09:34 Dose: 40 mg Potassium Chloride (K-Dur 20 Meq Er Tab) 20 meq PO BID [facility] Last Admin: 07/18/17 09:37 Dose: 20 meq Sucralfate (Carafate Oral Susp) 1 gm PO 0600,1600 [facility] Last Admin: 07/18/17 05:23 Dose: 1 gm - Labs Labs: 07/18/17 06:40 07/18/17 07:00 PT 12.6 SECONDS (9.4-12.5) H 07/15/17 18:47 INR 1.10 (0.93-1.08) H 07/15/17 18:47 APTT 30.3 Seconds (25.1-36.5) 07/15/17 18:47 - Constitutional Appears: Non-toxic, No Acute Distress - Head Exam Head Exam: ATRAUMATIC, NORMOCEPHALIC - Eye Exam Eye Exam: EOMI - ENT Exam ENT Exam: Mucous Membranes Moist - Neck Exam Neck Exam: Full ROM - Respiratory Exam Respiratory Exam: NORMAL BREATHING PATTERN. absent: Accessory Muscle Use, Respiratory Distress - GI/Abdominal Exam GI & Abdominal Exam: Soft. absent: Tenderness Additional comments: obese - Neurological Exam Neurological Exam: Alert, Awake, Oriented x3 - Skin Skin Exam: Normal Color, Warm Assessment and Plan - Assessment and Plan (Free Text) Assessment: 52F w. esophagitis possibly 2/2 to atrial enlargement, consulted for J-tube placement -given hx of developmental delay, question whether or not pt would be compliant w. J-tube use -will further discuss tx options w. GI -d/w attending Elinaitis PGY3
--- NOTE | 2017-07-18 10:13 | PQF ANEMIA ---
This form is a permanent part of the medical record Dr. Sorensen, Patient admitted with anemia () treated with 4 UPRBC. She was taken for EGD which revealed severe esophagitis and stenosis. Please specify the type and severity of the anemia, and clarify if the esophagitis was the source of blood loss, other cause. Clarification of your documentation is requested to better reflect the severity of illness and intensity of treatment of your patient. Indicators present [x] Anemia [x] Drop in H&H from []___ to []___ [] Hypotension [x] GI Bleed [] Transfusion(s) [] Acute bleed other sites [] Tachycardia [] Surgical Procedure Blood Loss (expected not a complication) Other:[] Location in the medical record that reflects the above clinical findings: [] Treatment Provided: [] 4 UPRBC PHYSICIAN'S RESPONSE Based on your medical judgment of the clinical indicators outlined above, are you treating this patient for a known or suspected: [] Acute blood loss anemia [] Chronic blood loss anemia [] Acute on Chronic blood loss anemia [] Anemia due to malignancy [] Anemia due to chemotherapy or radiation therapy [] Anemia of Chronic Disease, please specify: [] [] Other, please indicate type of anemia []____ [] If Unable to Determine, please check the box, sign and date. Present On Admission (POA) Indicator: [] Present at the time of admission [] Not present at the time of admission [] Clinically Undetermined In responding to this query, please exercise your independent professional judgment. The fact that a question is asked does not imply that any particular answer is desired or expected. Thank you for your clarification on this documentation. If you have any questions please call:[ ] * Thank you, [ ]Nerissa Paredes [facility] #[id number] group insurance special agent MILLIE
--- NOTE | 2017-07-18 10:20 | CARD ---
APPROVED REPORT EKG Measurement Heart [id number] <Conclusion> Sinus tachycardia STTW changes c/w ischemia No change
--- NOTE | 2017-07-18 13:55 | PN ---
DATE: 07/18/2017 SUBJECTIVE: The patient is seen lying in 568, bed 1. The patient is lying in the bed. The patient appears to be comfortable. PHYSICAL EXAMINATION: VITAL SIGNS: T-max 98.9-97.8. Pulse rate 100, 81, 82; blood pressure 130/70, 131/74; respiration 22; O2 sat 97%. HEENT: Head examination normocephalic, atraumatic. HEENT examination shows pinkish pale conjunctivae. Anicteric sclerae. No oropharyngeal lesion. No neck rigidity. NECK: Short and supple. CHEST: Kyphosis. The patient is morbidly obese with elevated body mass index of 47. CARDIOVASCULAR: Shows S1, S2. Regular rhythm. Positive systolic murmur, left sternal border, right second intercostal space, left second intercostal space. ABDOMEN: Morbidly obese. Unable to appreciate any hepatosplenomegaly. No guarding. No rigidity. No rebound tenderness. GENITALIA: Female. RECTAL: Deferred. EXTREMITY: Shows nonpitting lymphedema of the both lower extremity. MUSCULOSKELETAL: Shows a body mass index of 47. NEUROLOGIC: The patient is alert, awake, oriented, responsive, follows command. Moves upper and lower extremity without assistance. DIAGNOSTICS: On 07/18/2017, WBC 9.4, hemoglobin and hematocrit 9 and 32, MCV 72, platelets 343. Granulocytes 75% segs. Sodium 139, potassium is 4.0, chloride 105, CO2 of 23, anion gap 15, BUN 9, creatinine 0.6, GFR greater than 60, glucose 87, calcium 8.5, magnesium 2.1, total bili 2.0. LFTs are normal. Urine hCG is negative. Blood type is A+. The patient received 4 units of PRBC. IMPRESSION AND PLAN: 1. Severe symptomatic anemia with symptoms of shortness of breath, dyspnea on exertion. 2. Hypertension. 3. Tachycardia. 4. Morbid obesity. 5. Severe gait dysfunction. 6. Microcytic anemia. 7. Status post packed red blood cell transfusion x4. 8. Elevated reticulocyte count of greater than 2.25. 9. Elevated D-dimer, etiology undetermined. 10. Hypokalemia. 11. Iron deficiency. 12. Severe vitamin B12 deficiency. 13. Hypovitaminosis D. 14. Questionable and possible subclinical hyperthyroidism with elevated T4. 15. Folate deficiency. 16. Gait dysfunction. 17. Deconditioning. 18. Left ventricular ejection fraction of 53-63%. 19. Pulmonary hypertension with right ventricular systolic pressure of 56 mmHg. 20. Cholelithiasis. 21. Status post esophagogastroduodenoscopy. 22. [place] grade D esophagitis extending from 24 cm level from incisors. 23. [place] grade C distal third esophagitis. 24. Mid esophageal area moderate esophageal stenosis at 24 cm from incisors. 25. Hiatal hernia. 26. Gastritis. 27. Midesophageal stenosis. 28. Moderate to severe mitral regurgitation with severe left atrial enlargement. Plan at this time, the patient has been ordered repeat labs. The patient's intrinsic factor, methylmalonic acid, antiparietal antibody, gastrin level are pending. The patient's current consultation: 1. Gastroenterology. 2. Surgery. 3. Cardiology. CURRENT MEDICATIONS: 1. Abilify 5 mg a.m. 2. Ativan 2 mg q.i.d. 3. Carafate 1 g suspension twice a day. 4. Drisdol 50,000 units weekly. 5. Folic acid 1 mg daily. 6. Venofer 200 mg IV daily, total of five doses. 7. The patient is on K-Dur 20 mEq twice a day. 8. Lasix 40 mg IV q. 12. 9. Lexapro 10 mg daily. 10. Lopressor 25 mg q. 8 hours. 11. Protonix 40 mg IV q. 12. 12. Tylenol 650 mg q. 6 p.r.n. 13. Vitamin B12 at 1000 mcg IM daily for 10 doses. The patient is on liquid diet as per gastroenterology. The patient has been ordered occupational therapy, physical therapy. I have discussed the patient's case at length with Dr. Toledo. The patient was seen by Surgery and the patient was not considered for jejunostomy, so the recommendation by gastroenterology is to have Interventional Radiology consult for a placement of gastrostomy. The patient's sister, Erika has been explained about above. In the meantime, the patient will be placed on TCU for rehab training, gait training, ambulation training. The patient at present has been seen by the case management assistant. The patient has been found to be eligible for TCU after 3 midnights. The patient's EKG from today is reviewed, shows sinus tachycardia. The patient's echocardiogram official report is pending. The patient is to be continued on above medications as dictated above. The patient has been ordered out of bed to chair, FATOU stockings, SCDs, occupational therapy, physical therapy. Dictated and electronically signed, not read. Nathan Sorensen MD
--- NOTE | 2017-07-18 14:36 | PN ---
DATE: 07/18/2017 CARDIOLOGY FOLLOWUP SUBJECTIVE: The patient's breathing and edema are better. PHYSICAL EXAMINATION: VITAL SIGNS: Blood pressure 130/70, heart rates in the 90s. NECK: Negative JVD. LUNGS: Decreased breath sounds without rales. HEART: S1, S2. EXTREMITIES: 1+ edema. LABORATORY DATA: Her hemoglobin remains at 9 after transfusions. BUN and creatinine are unremarkable. Potassium is 4.0. IMPRESSION: 1. Gastrointestinal bleed. 2. Ulcer diagnosed on endoscopy. 3. Severe anemia, which is better after transfusions. 4. Acute systolic congestive heart failure. 5. Pedal edema. 6. Mitral regurgitation. Given these findings, the plans for MILTON and possible mitral valve repair with the mitral valve clip are on hold until her ulcer is healed. I have discussed this with GI. The risk of perforation with MILTON is high until her ulcer is healed. Hugo Lockwood MD
--- NOTE | 2017-07-18 14:52 | CARD ---
APPROVED REPORT EXAM: Two-dimensional and M-mode echocardiogram with Doppler and color Doppler. INDICATION MR/CHF 2D DIMENSIONS Left Atrium (2D)4.7 (1.6-4.0cm)IVSd1.2 (0.7-1.1cm) LVDd6.1 (3.9-5.9cm)PWd1.1 (0.7-1.1cm) LVDs4.4 (2.5-4.0cm)FS (%) 28.1 % LVEF (%)53.3 (>50%) M-Mode DIMENSIONS Aortic Root3.90 (2.2-3.7cm)Aortic Cusp Exc.2.10 (1.5-2.0cm) Aortic Valve AoV Peak Unsjzoaf007.0cm/Cooper Peak GR.11mmHgLVOT Peak Wmoodepe696.0cm/s LVOT VTI24.10cm Mitral Valve MV E [place]05.6cm/sMV A Ponzefzb38.5cm/sE/A ratio1.0 TDI Lateral E' Peak V10.60cm/sMedial E' Peak V9.46cm/sE/Lateral E'7.7 E/Medial E'8.6 Pulmonary Valve PV Peak Mvczyhqn97.4cm/sPV Peak Grad.3mmHg Tricuspid Valve TR Peak Wgamrkye992ix/sRAP CMUIBNPE73ntKkHO Peak Gr.46mmHg PFUU60kzBh LEFT VENTRICLE The Left Ventricle is mildly dilated. The left ventricular function is normal. The left ventricular ejection fraction is within the normal range. RIGHT VENTRICLE The right ventricle is normal size. ATRIA The left atrium is mildly dilated. The right atrium size is normal. AORTIC VALVE The aortic valve is thickened but opens well. MITRAL VALVE The mitral valve is thickened but opens well. Mitral regurgitation is moderate. Regurg jet is eccentrically located There is no evidence of mitral valve prolapse. TRICUSPID VALVE The tricuspid valve leaflets are thickened , but open well. There is mild tricuspid regurgitation. There is moderate pulmonary hypertension. PERICARDIAL EFFUSION There is a trace pericardial effusion. <Conclusion> Mildly dilated LV Normal LV systolic function Moderate MR...posterior directed JET Mild TR Moderate pulmonary hypertension
--- NOTE | 2017-07-18 17:04 | CP.PCM.PN ---
<Barbra Waters - Last Filed: 07/18/17 17:04> Subjective - Date & Time of Evaluation Date of Evaluation: 07/18/17 Time of Evaluation: 10:25 - Subjective Subjective: Seen and examined at the bedside earlier today, chart review. Status post endoscopy yesterday found to have LA grade D esophagitis with circumferential ulcerations. The patient denies nausea, vomiting, or abdominal pain. No reports of overt GI bleed. Tolerating clear liquid diet. Evaluated by surgery, pt may not be candidate for jejunostomy, question of compliance. Objective - Vital Signs/Intake and Output Vital Signs (last 24 hours): Temp Pulse Resp BP Pulse Ox 98.9 F 108 H 22 147/91 H 97 07/18/17 08:13 07/18/17 16:12 07/18/17 08:13 07/18/17 16:12 07/18/17 08:13 Intake and Output: 07/18/17 07/18/17 06:59 18:59 Intake Total 120 Output Total 1 Balance 119 - Medications Medications: Current Medications Acetaminophen (Tylenol 325mg Tab) 650 mg PO Q6H PRN PRN Reason: TEMP>=99.5F Acetaminophen (Tylenol 650 Mg Supp) 650 mg RC Q4H PRN PRN Reason: TEMP>=99.5F Aripiprazole (Abilify) 5 mg PO QAM [facility] Last Admin: 07/18/17 09:36 Dose: 5 mg Cyanocobalamin (Vitamin B12 1000 Mcg/Ml Inj) 1,000 mcg IM DAILY [facility] Stop: 07/27/17 10:01 Last Admin: 07/18/17 16:09 Dose: Not Given Ergocalciferol (Drisdol 50,000 Intl Units Cap) 1 cap PO Q7D [facility] Last Admin: 07/16/17 22:29 Dose: 1 cap Escitalopram Oxalate (Lexapro) 10 mg PO QAM [facility] Last Admin: 07/18/17 09:37 Dose: 10 mg Folic Acid (Folic Acid) 1 mg PO DAILY [facility] Last Admin: 07/18/17 15:02 Dose: 1 mg Furosemide (Lasix) 40 mg IVP Q12 [facility] Last Admin: 07/18/17 09:36 Dose: 40 mg Iron Sucrose 200 mg/ Sodium (Chloride) 110 mls @ 110 mls/hr IVPB DAILY [facility] Stop: 07/19/17 10:59 Last Admin: 07/18/17 12:57 Dose: 110 mls/hr Lorazepam (Ativan) 2 mg PO QID [facility] PRN Reason: Protocol Last Admin: 07/18/17 15:03 Dose: 2 mg Metoprolol Tartrate (Lopressor) 25 mg PO Q8H [facility] Last Admin: 07/18/17 16:12 Dose: 25 mg Pantoprazole Sodium (Protonix Inj) 40 mg IVP Q12H [facility] Last Admin: 07/18/17 09:34 Dose: 40 mg Potassium Chloride (K-Dur 20 Meq Er Tab) 20 meq PO BID [facility] Last Admin: 07/18/17 09:37 Dose: 20 meq Sucralfate (Carafate Oral Susp) 1 gm PO 0600,1600 [facility] Last Admin: 07/18/17 16:12 Dose: 1 gm - Labs Labs: 07/18/17 06:40 07/18/17 07:00 PT 12.6 SECONDS (9.4-12.5) H 07/15/17 18:47 INR 1.10 (0.93-1.08) H 07/15/17 18:47 APTT 30.3 Seconds (25.1-36.5) 07/15/17 18:47 - Constitutional Appears: No Acute Distress - Head Exam Head Exam: NORMOCEPHALIC - Eye Exam Eye Exam: Normal appearance. absent: Scleral icterus - ENT Exam ENT Exam: Mucous Membranes Moist - Respiratory Exam Respiratory Exam: NORMAL BREATHING PATTERN. absent: Respiratory Distress - Cardiovascular Exam Cardiovascular Exam: +S1, +S2 - GI/Abdominal Exam GI & Abdominal Exam: Soft, Normal Bowel Sounds. absent: Guarding, Tenderness, Organomegaly, Rebound - Extremities Exam Extremities Exam: Pedal Edema. absent: Calf Tenderness - Neurological Exam Neurological Exam: Alert, Awake, Oriented x3 Assessment and Plan - Assessment and Plan (Free Text) Assessment: Assessment: Anemia, s/p blood transfusion Esophageal ulcers, S/P EGD found LA grade D esophagitis,? atrial enlargement GERD Bipolar disorder Bilateral lower extremity edema, lower extremity Doppler negative Plan: Continue Protonix 40 every 12 clear liquid Monitor H&H and for overt GI bleed FU serum gastrin level IR eval for ct guided gastrotomy tube monitor H/h for overt GI bleeding. cardiology FU Seen and discussed with Dr. Toledo. <Dayron Toledo V - Last Filed: 07/19/17 01:54> Objective - Vital Signs/Intake and Output Vital Signs (last 24 hours): Temp Pulse Resp BP Pulse Ox 101.2 F H 100 H 20 135/67 96 07/18/17 23:25 07/18/17 22:05 07/18/17 16:00 07/18/17 22:05 07/18/17 16:00 Intake and Output: 07/18/17 07/19/17 18:59 06:59 Intake Total 425 Output Total 250 Balance 175 - Medications Medications: Current Medications Acetaminophen (Tylenol 325mg Tab) 650 mg PO Q6H PRN PRN Reason: TEMP>=99.5F Last Admin: 07/18/17 22:25 Dose: 650 mg Acetaminophen (Tylenol 650 Mg Supp) 650 mg RC Q4H PRN PRN Reason: TEMP>=99.5F Aripiprazole (Abilify) 5 mg PO QAM [facility] Last Admin: 07/18/17 09:36 Dose: 5 mg Cyanocobalamin (Vitamin B12 1000 Mcg/Ml Inj) 1,000 mcg IM DAILY [facility] Stop: 07/27/17 10:01 Last Admin: 07/18/17 16:09 Dose: Not Given Ergocalciferol (Drisdol 50,000 Intl Units Cap) 1 cap PO Q7D [facility] Last Admin: 07/16/17 22:29 Dose: 1 cap Escitalopram Oxalate (Lexapro) 10 mg PO QAM [facility] Last Admin: 07/18/17 09:37 Dose: 10 mg Folic Acid (Folic Acid) 1 mg PO DAILY [facility] Last Admin: 07/18/17 15:02 Dose: 1 mg Furosemide (Lasix) 40 mg IVP Q12 [facility] Last Admin: 07/18/17 22:04 Dose: 40 mg Iron Sucrose 200 mg/ Sodium (Chloride) 110 mls @ 110 mls/hr IVPB DAILY [facility] Stop: 07/19/17 10:59 Last Admin: 07/18/17 12:57 Dose: 110 mls/hr Metronidazole (Flagyl) 500 mg in 100 mls @ 100 mls/hr IVPB Q8 [facility] PRN Reason: Protocol Last Admin: 07/19/17 00:17 Dose: 100 mls/hr Cefepime HCl (Maxipime 1gm) 1 gm in 100 mls @ 100 mls/hr IVPB Q8 [facility] PRN Reason: Protocol Last Admin: 07/19/17 01:32 Dose: 100 mls/hr Lorazepam (Ativan) 2 mg PO QID [facility] PRN Reason: Protocol Last Admin: 07/18/17 22:04 Dose: 2 mg Metoprolol Tartrate (Lopressor) 25 mg PO Q8H [facility] Last Admin: 07/18/17 22:05 Dose: 25 mg Pantoprazole Sodium (Protonix Inj) 40 mg IVP Q12H [facility] Last Admin: 07/18/17 22:05 Dose: 40 mg Potassium Chloride (K-Dur 20 Meq Er Tab) 20 meq PO BID [facility] Last Admin: 07/18/17 17:31 Dose: 20 meq Sucralfate (Carafate Oral Susp) 1 gm PO 0600,1600 [facility] Last Admin: 07/18/17 16:12 Dose: 1 gm - Labs Labs: 07/18/17 06:40 07/18/17 07:00 PT 12.6 SECONDS (9.4-12.5) H 07/15/17 18:47 INR 1.10 (0.93-1.08) H 07/15/17 18:47 APTT 30.3 Seconds (25.1-36.5) 07/15/17 18:47 Attending/Attestation - Attestation I have personally seen and examined this patient.: Yes I have fully participated in the care of the patient.: Yes I have reviewed all pertinent clinical information, including history, physical exam and plan: Yes Notes (Text): This is an addendum to GI progress report dictated by Barbra Waters APN.The patient was seen and examined earlier. Medical records, lab studies, imagings were reviewed. Last 24 hours events reviewed. Agreed with the above treatment plan as outlined in Barbra Waters APN's notes the with the addition of the following this patient was fortunately scheduled for CT-guided gastric tube placement. Discussed with the patient's sister who is an [email or web address] employee. She is concerned about having the procedure done now and she wants to discuss with the family and physicians and decide about the procedure later. Surgical consult was noted and also discussed with the surgeon and no plan for jejunostomy as per surgery Gastric tube placement may be reasonable option as patient has LA grade D esophageal ulceration with the significant stricture secondary to the left atrial compression of the esophagus. I did discuss with outboard motor mechanic. Cardiac workup including PEG was deferred in view of this ulceration. Would continue liquid diet and high-dose PPI 07/19/17 01:49
[2017-07-18 23:25] LABS: GASTRIN 28 pg/mL (<=100)
[2017-07-19] MEDS: metroNIDAZOLE IV 500 mg/100 ml 500 MG/100 ML BAG IVPB SCH ×4 (00:17→22:45)
[2017-07-19] MEDS: Cefepime 1gm in NS 100ml 1 GM/100 ML BAG IVPB SCH ×4 (01:32→22:45)
[2017-07-19] MEDS: Sucralfate 1 gm/10 ml Oral Susp UD PO SCH ×2 (05:16→18:25)
[2017-07-19 08:22] LABS: BASO # 0.02 K/mm3 (0.0-2.0); BASO % 0.3 % (0.0-3.0); EOS # 0.1 (0.0-0.7); EOS % 0.7 % (1.5-5.0); GRAN # 5.72 (1.4-6.5); GRAN % 78.4 % (50.0-68.0); HEMOGLOBIN 9.4 g/dL (12.0-16.0); LYMPH # 0.4 (1.2-3.4); LYMPH % 5.3 % (22.0-35.0); MEAN CELL VOLUME 74.1 fl (80.0-105.0); MEAN CORPUSCULAR HEMOGLOBIN 20.1 pg (25.0-35.0); MEAN CORPUSCULAR HGB CONC 27.1 g/dl (31.0-37.0); MEAN PLATELET VOLUME 8.7 fl (7.0-11.0); MONO # 1.1 (0.1-0.6); MONO % 15.3 % (1.0-6.0); RBC 4.68 10^6/uL (3.5-6.1); RED CELL DISTRIBUTION WIDTH 28.5 % (11.5-14.5); WHITE BLOOD COUNT 7.3 10^3/ul (4.5-11.0)
[2017-07-19 09:00] LABS: ALB/GLOB RATIO 1.3 (1.1-1.8); ALBUMIN 3.4 g/dL (3.0-4.8); ALT/SGPT 22 U/L (7-56); AST/SGOT 26 U/L (14-36); BILIRUBIN,DIRECT 0.5 mg/dL (0.0-0.4); BLOOD UREA NITROGEN 16 mg/dL (7-21); CALCIUM 8.6 mg/dL (8.4-10.5); GFR AFRICAN-AMERICAN > 60; GFR NON-AFRICAN AMERICAN > 60; MAGNESIUM 2.2 mg/dL (1.7-2.2)
--- NOTE | 2017-07-19 09:13 | RAD ---
HISTORY: FEVER COMPARISON: 07/15/2017 TECHNIQUE: Chest PA and lateral FINDINGS: LUNGS: No active pulmonary disease. PLEURA: No significant pleural effusion identified. No pneumothorax apparent. CARDIOVASCULAR: Normal. OSSEOUS STRUCTURES: No significant abnormalities. VISUALIZED UPPER ABDOMEN: Normal. OTHER FINDINGS: None. IMPRESSION: No active disease.
--- NOTE | 2017-07-19 10:30 | CP.PCM.PN ---
Subjective - Date & Time of Evaluation Date of Evaluation: 07/19/17 Time of Evaluation: 07:00 - Subjective Subjective: Patient seen and examined at bedside thsi AM. Patient is currently febrile with Tmax of 101.9 last night down to 100.3 this AM after tylenol administration. Patient denies any abdominal pain but is comlaining of worsened dyspnea. Patient was to go for IR place gastrostomy tube yesterday but family deferred, wanting to discuss with other family members first Objective - Vital Signs/Intake and Output Vital Signs (last 24 hours): Temp Pulse Resp BP Pulse Ox 100.3 F H 98 H 24 113/60 94 L 07/19/17 07:30 07/19/17 07:30 07/19/17 07:30 07/19/17 07:30 07/19/17 07:30 Intake and Output: 07/19/17 07/19/17 06:59 18:59 Intake Total 545 Output Total 850 Balance -305 - Medications Medications: Current Medications Acetaminophen (Tylenol 325mg Tab) 650 mg PO Q6H PRN PRN Reason: TEMP>=99.5F Last Admin: 07/19/17 05:22 Dose: 650 mg Acetaminophen (Tylenol 650 Mg Supp) 650 mg RC Q4H PRN PRN Reason: TEMP>=99.5F Aripiprazole (Abilify) 5 mg PO QAM [facility] Last Admin: 07/18/17 09:36 Dose: 5 mg Cyanocobalamin (Vitamin B12 1000 Mcg/Ml Inj) 1,000 mcg IM DAILY [facility] Stop: 07/27/17 10:01 Last Admin: 07/18/17 16:09 Dose: Not Given Ergocalciferol (Drisdol 50,000 Intl Units Cap) 1 cap PO Q7D [facility] Last Admin: 07/16/17 22:29 Dose: 1 cap Escitalopram Oxalate (Lexapro) 10 mg PO QAM [facility] Last Admin: 07/18/17 09:37 Dose: 10 mg Folic Acid (Folic Acid) 1 mg PO DAILY [facility] Last Admin: 07/18/17 15:02 Dose: 1 mg Furosemide (Lasix) 40 mg IVP Q12 [facility] Last Admin: 07/18/17 22:04 Dose: 40 mg Iron Sucrose 200 mg/ Sodium (Chloride) 110 mls @ 110 mls/hr IVPB DAILY [facility] Stop: 07/19/17 10:59 Last Admin: 07/18/17 12:57 Dose: 110 mls/hr Metronidazole (Flagyl) 500 mg in 100 mls @ 100 mls/hr IVPB Q8 [facility] PRN Reason: Protocol Last Admin: 07/19/17 05:16 Dose: 100 mls/hr Cefepime HCl (Maxipime 1gm) 1 gm in 100 mls @ 100 mls/hr IVPB Q8 [facility] PRN Reason: Protocol Last Admin: 07/19/17 06:35 Dose: 100 mls/hr Potassium Chloride (Potassium Chloride 20 Meq/100 Ml) 20 meq in 100 mls @ 50 mls/hr IVPB Q2H [facility] Stop: 07/19/17 13:29 Lorazepam (Ativan) 2 mg PO QID [facility] PRN Reason: Protocol Last Admin: 07/18/17 22:04 Dose: 2 mg Metoprolol Tartrate (Lopressor) 25 mg PO Q8H [facility] Last Admin: 07/18/17 22:05 Dose: 25 mg Pantoprazole Sodium (Protonix Inj) 40 mg IVP Q12H [facility] Last Admin: 07/18/17 22:05 Dose: 40 mg Potassium Chloride (K-Dur 20 Meq Er Tab) 20 meq PO BID [facility] Last Admin: 07/18/17 17:31 Dose: 20 meq Sucralfate (Carafate Oral Susp) 1 gm PO 0600,1600 [facility] Last Admin: 07/19/17 05:16 Dose: 1 gm - Labs Labs: 07/19/17 07:00 07/19/17 07:00 PT 12.6 SECONDS (9.4-12.5) H 07/15/17 18:47 INR 1.10 (0.93-1.08) H 07/15/17 18:47 APTT 30.3 Seconds (25.1-36.5) 07/15/17 18:47 - Constitutional Appears: Non-toxic, No Acute Distress - Head Exam Head Exam: ATRAUMATIC, NORMOCEPHALIC - Eye Exam Eye Exam: Normal appearance - ENT Exam ENT Exam: Mucous Membranes Moist, Normal Oropharynx - Respiratory Exam Respiratory Exam: Wheezes. absent: Accessory Muscle Use Additional comments: tachypnea, increased respiratory effort - Cardiovascular Exam Cardiovascular Exam: Tachycardia - GI/Abdominal Exam GI & Abdominal Exam: Soft. absent: Distended, Tenderness, Rebound - Extremities Exam Extremities Exam: Pedal Edema - Neurological Exam Neurological Exam: Alert, Awake, Oriented x3 - Psychiatric Exam Psychiatric exam: Flat Affect, Normal Mood - Skin Skin Exam: Diaphoretic, Normal Color, Warm Assessment and Plan - Assessment and Plan (Free Text) Assessment: 52F w/esophagitis possibly 2/2 to atrial enlargement, consulted for J-tube placement for nutrition Plan: -F/U IR placement of a gastrostomy tube -given patient's current poor clinical status, numerous comorbidities, including morbid obesity and developmental delay, open jejunostomy is not the best option at this time -Will continue to follow with you Discussed with Dr. Mylene Rizo, PGY2
[2017-07-19] MEDS: Potassium Chloride 20 mEq ER Tab PO SCH ×2 (10:36→18:25)
--- NOTE | 2017-07-19 19:11 | PN ---
DATE: 07/19/2017 SUBJECTIVE: Patient is seen again lying in bed in room 568, bed 1. Patient was advised to and encouraged to be out of bed and sit in the chair. Patient does not appear to be in any distress. Overnight nurse's notes were reviewed. Patient slept well. Patient spiked a fever of 101.2 last night. OBJECTIVE: VITAL SIGNS: T-max 101.9, 101.2, 100.5, 100.2, 100.3. Heart rate is 100, 108, 98. Blood pressure is 135/67, 123/71. Respirations 24, O2 sat is 97%, 96%, 94%. Output documented only 600, 250 yesterday. HEENT: Head: Normocephalic, atraumatic. HEENT examination shows pinkish pale conjunctivae. Anicteric sclerae. No oropharyngeal lesion. NECK: Short and supple. CHEST: Kyphosis. LUNGS: Shows questionable decreased breath sound at the bases, left more than the right. CARDIOVASCULAR: S1, S2, regular rhythm. Questionable soft positive systolic murmur, left sternal border, right second intercostal space, left second intercostal space. ABDOMEN: Protuberant, obese. Unable to appreciate any hepatosplenomegaly. GENITALIA: Female. RECTAL: Deferred. EXTREMITIES: Show nonpitting lymphedema. MUSCULOSKELETAL: Shows a body mass index of . DIAGNOSTICS: From July 19, shows WBC 7.3, hemoglobin and hematocrit 9.4 and 34.7, MCV 74.1, platelet 311. Granulocytes; 78% segs. Sodium 42, potassium 3.3, chloride 103, CO2 of 26, anion gap 16. BUN 16, creatinine 0.8. GFR greater than 60. Glucose 90. Calcium 8.6, magnesium 2.2. Total bili 1.7, direct bili 0.5. LFTs are normal. Patient received 4 units of PRBC. Patient was ordered a chest x-ray when patient spiked fever. Chest x-ray shows no pneumonia, infiltrate, or atelectasis. Patient's EKG from yesterday, July 18, . IMPRESSION: 1. Questionable and possible systemic inflammatory response syndrome with high-grade fever of 101.9. 2. Tachycardia. 3. Hypo and hypertension. 4. Severe symptomatic microcytic anemia, status post packed red blood cell transfusion x4. 5. Elevated reticulocyte count of greater than 2.5. 6. Elevated D-dimer of greater than 535, etiology undetermined. 7. Hypokalemia. 8. Severe iron deficiency anemia. 9. Vitamin B12 deficiency. 10. Questionable and possible subclinical hyperthyroidism. 11. Hypovitaminosis D. 12. Morbid obesity with body mass index of 47. 13. Developmentally disabled. 14. Hyperbilirubinemia. 15. Status post esophagogastroduodenoscopy and a grade B esophagitis. 16. Questionable and possible left atrial enlargement, coughing, and extrinsic esophageal stenosis. 17. History of anxiety, depression, and bipolar disorder. 18. Left ventricular ejection fraction of 53%. 19. Bezbtjqr-sc-mcqkit pulmonary arterial hypertension with right ventricular systolic pressure of 56 mmHg. 20. Mildly dilated left ventricle. 21. Mildly dilated left atrium. 22. Moderate mitral regurgitation with eccentrically located regurgitant jet . 23. Moderate mitral regurgitation with posteriorly directed jet. 24. Sinus tachycardia with nonspecific ST-T wave changes. PLAN: At this time, patient has been ordered blood cultures, urine cultures. Patient has been ordered serial labs. Current consultation: 1. Gastroenterology. 2. Cardiology. 3. Infectious Disease. 4. Surgery. 5. Interventional Radiology. Referral to TCU ordered. The patient is still waiting for TCU acceptance. CURRENT MEDICATIONS: 1. Abilify 5 mg daily. 2. Ativan 2 mg q.i.d. 3. Carafate 1 g twice a day. 4. Drisdol 50,000 weekly. 5. Flagyl 500 IV q.8. 6. Folic acid 1 mg daily. 7. Potassium K-Dur 20 mEq twice a day. Patient was ordered potassium riders x2. 8. Lasix 40 mg IV q.[address] Hugo Lockwood, which was increased yesterday. 9. The patient's K-Dur will be increased to 20 mg q. 8 hours as the patient's Lasix is increased to [address] Hugo Lockwood. 10. Patient is on Lexapro 10 mg daily. 11. Lopressor 25 mg q.8. 12. Maxipime 1 g IV q.8. 13. Protonix 40 mg IV q.12. 14. Tylenol 650 mg p.o. and suppository q. 6 hours p.r.n. for temperature greater than or equal to 99.5. 15. Vitamin B12 1000 mcg IM daily. Patient has been ordered out of bed, FATOU stockings, SCDs, occupational therapy, physical therapy ordered. Patient seen by physical therapist yesterday. DISCHARGE RECOMMENDATION: TCU. At present, patient's sister updated about patient's need for placement of nutritional support options and gastrostomy tube placement via Interventional Radiology with Dr. Hugo Underwood discussing extensively with patient's sister, agreed to. Because surgery at present is reluctant to place a jejunostomy tube. I have had an extensive discussion with the patient's sister explaining all aspect of medical care, diagnostic test results, and recommendation by all physician. At present, patient's further management will be dependent upon the patient's clinical condition, hemodynamic status, and as per patient's response to therapeutic intervention and as per recommendation by all the subspecialties involved in the care of the patient. Dictated and electronically signed, not read. Nathan Sorensen MD
[2017-07-20] MEDS: Potassium Chloride 20 mEq ER Tab PO SCH ×2 (00:01→10:36)
--- NOTE | 2017-07-20 03:59 | PN ---
DATE: 07/19/2017 SUBJECTIVE: The patient was seen and evaluated earlier today. The patient is on liquid diet. PHYSICAL EXAMINATION: VITAL SIGNS: Temperature is 98, blood pressure is 99/60, pulse 69. HEENT: Atraumatic, anicteric. NECK: Supple. HEART: S1 and S2 is heard. LUNGS: Bilateral air entry present. ABDOMEN: Soft. EXTREMITIES: Mild edema present. LABORATORY DATA: Hemoglobin 9.4, hematocrit 34.7, WBC 7.3, platelets 311. Sodium 142, creatinine 3.3. IMPRESSION: This is a 52-year-old patient with grade D esophageal ulcerations with esophageal stricture secondary to the left atrial compression. The patient would need .further cardiac evaluation and waiting for healing of esopahgeal ulcerations The patient is planned to have G-tube feeding. The patient did spike temperature yesterday. Systemic inflammatory response syndrome. Follow up of the cultures and continue the antibiotics. Plan for a CT-guided G-tube placement when patient and family agreeable after optimization next week. Thank you very much for allowing me to participate in the care of the patient. Dayron Toledo MD MTDD
[2017-07-20] MEDS: metroNIDAZOLE IV 500 mg/100 ml 500 MG/100 ML BAG IVPB SCH (06:05)
[2017-07-20] MEDS: Sucralfate 1 gm/10 ml Oral Susp UD PO SCH ×2 (06:05→16:01)
[2017-07-20] MEDS: Cefepime 1gm in NS 100ml 1 GM/100 ML BAG IVPB SCH (06:52)
[2017-07-20 07:45] LABS: BASO # 0.01 K/mm3 (0.0-2.0); BASO % 0.2 % (0.0-3.0); EOS % 0.4 % (1.5-5.0); GRAN # 3.04 (1.4-6.5); GRAN % 64.6 % (50.0-68.0); HEMOGLOBIN 9.9 g/dL (12.0-16.0); LYMPH # 0.8 (1.2-3.4); LYMPH % 16.8 % (22.0-35.0); MEAN CELL VOLUME 74.8 fl (80.0-105.0); MEAN CORPUSCULAR HEMOGLOBIN 20.5 pg (25.0-35.0); MEAN CORPUSCULAR HGB CONC 27.3 g/dl (31.0-37.0); MEAN PLATELET VOLUME 8.8 fl (7.0-11.0); MONO # 0.9 (0.1-0.6); RBC 4.84 10^6/uL (3.5-6.1); RED CELL DISTRIBUTION WIDTH 29.1 % (11.5-14.5); WHITE BLOOD COUNT 4.7 10^3/ul (4.5-11.0)
[2017-07-20 07:52] VITALS: RESP 22; TEMP 98.7; O2SAT 94
[2017-07-20 08:57] LABS: ALB/GLOB RATIO 1.3 (1.1-1.8); ALBUMIN 3.3 g/dL (3.0-4.8); ALT/SGPT 27 U/L (7-56); AST/SGOT 22 U/L (14-36); BILIRUBIN,DIRECT 0.4 mg/dL (0.0-0.4); BLOOD UREA NITROGEN 19 mg/dL (7-21); CALCIUM 8.3 mg/dL (8.4-10.5); GFR AFRICAN-AMERICAN > 60; GFR NON-AFRICAN AMERICAN > 60; MAGNESIUM 2.3 mg/dL (1.7-2.2)
--- NOTE | 2017-07-20 09:51 | CP.PCM.PN ---
Subjective - Date & Time of Evaluation Date of Evaluation: 07/20/17 Time of Evaluation: 07:30 - Subjective Subjective: (covering for Dr. Sorensen) Patient is seen this morning, lying in bed. She says she did get out of bed and walked yesterday. Objective - Vital Signs/Intake and Output Vital Signs (last 24 hours): Temp Pulse Resp BP Pulse Ox 98.7 F 91 H 22 111/65 94 L 07/20/17 07:30 07/20/17 07:30 07/20/17 07:30 07/20/17 07:30 07/20/17 07:30 Intake and Output: 07/20/17 07/20/17 06:59 18:59 Intake Total 0 Output Total 1850 Balance -1850 - Medications Medications: Current Medications Acetaminophen (Tylenol 325mg Tab) 650 mg PO Q6H PRN PRN Reason: TEMP>=99.5F Last Admin: 07/19/17 14:18 Dose: 650 mg Acetaminophen (Tylenol 650 Mg Supp) 650 mg RC Q4H PRN PRN Reason: TEMP>=99.5F Aripiprazole (Abilify) 5 mg PO QAM [facility] Last Admin: 07/19/17 10:36 Dose: 5 mg Cyanocobalamin (Vitamin B12 1000 Mcg/Ml Inj) 1,000 mcg IM DAILY [facility] Stop: 07/27/17 10:01 Last Admin: 07/19/17 10:35 Dose: 1,000 mcg Ergocalciferol (Drisdol 50,000 Intl Units Cap) 1 cap PO Q7D [facility] Last Admin: 07/16/17 22:29 Dose: 1 cap Escitalopram Oxalate (Lexapro) 10 mg PO QAM [facility] Last Admin: 07/19/17 10:36 Dose: 10 mg Folic Acid (Folic Acid) 1 mg PO DAILY [facility] Last Admin: 07/19/17 10:37 Dose: 1 mg Furosemide (Lasix) 40 mg IVP Q12 [facility] Last Admin: 07/19/17 22:00 Dose: 40 mg Metronidazole (Flagyl) 500 mg in 100 mls @ 100 mls/hr IVPB Q8 [facility] PRN Reason: Protocol Last Admin: 07/20/17 06:05 Dose: 100 mls/hr Cefepime HCl (Maxipime 1gm) 1 gm in 100 mls @ 100 mls/hr IVPB Q8 [facility] PRN Reason: Protocol Last Admin: 07/20/17 06:52 Dose: 100 mls/hr Lorazepam (Ativan) 2 mg PO QID [facility] PRN Reason: Protocol Last Admin: 07/19/17 23:49 Dose: 2 mg Metoprolol Tartrate (Lopressor) 25 mg PO Q8H [facility] Last Admin: 07/20/17 06:50 Dose: 25 mg Pantoprazole Sodium (Protonix Inj) 40 mg IVP Q12H [facility] Last Admin: 07/19/17 22:00 Dose: 40 mg Potassium Chloride (K-Dur 20 Meq Er Tab) 20 meq PO Q8H [facility] Last Admin: 07/20/17 00:01 Dose: 20 meq Sucralfate (Carafate Oral Susp) 1 gm PO 0600,1600 [facility] Last Admin: 07/20/17 06:05 Dose: 1 gm - Labs Labs: 07/20/17 05:00 07/20/17 08:31 PT 12.6 SECONDS (9.4-12.5) H 07/15/17 18:47 INR 1.10 (0.93-1.08) H 07/15/17 18:47 APTT 30.3 Seconds (25.1-36.5) 07/15/17 18:47 - Constitutional Appears: No Acute Distress - Respiratory Exam Respiratory Exam: Decreased Breath Sounds, NORMAL BREATHING PATTERN - Cardiovascular Exam Cardiovascular Exam: +S1, +S2 - GI/Abdominal Exam GI & Abdominal Exam: Soft, Normal Bowel Sounds. absent: Tenderness - Neurological Exam Neurological Exam: Alert, Awake Assessment and Plan - Assessment and Plan (Free Text) Assessment: Systemic inflammatory response syndrome Esophageal ulcerations with stricture Anemia status post 4 units of PRBCs Mitral regurgitation Plan: Patient has been seen by gastroenterology, Dr. Toledo and the patient is to have G-tube placed. continue Carafate and Protonix twice daily for esophageal ulcerations. Hemoglobin is 9.9 after receiving a total of 4 units packed red blood cells. She is also undergoing cardiac evaluation for mitral regurgitation.
--- NOTE | 2017-07-20 10:21 | CP.PCM.PN ---
Subjective - Date & Time of Evaluation Date of Evaluation: 07/20/17 Time of Evaluation: 07:30 - Subjective Subjective: Patient seen and examined thsi AM. Patient had persistent fevers yesterday that resolved overnight. Pt denies any abdominal pain, nausea, vomiting, or any other GI symptoms. Patient's family still deciding on course of action regarding IR placed G-tube Objective - Vital Signs/Intake and Output Vital Signs (last 24 hours): Temp Pulse Resp BP Pulse Ox 98.7 F 91 H 22 111/65 94 L 07/20/17 07:30 07/20/17 07:30 07/20/17 07:30 07/20/17 07:30 07/20/17 07:30 Intake and Output: 07/20/17 07/20/17 06:59 18:59 Intake Total 0 Output Total 1850 Balance -1850 - Medications Medications: Current Medications Acetaminophen (Tylenol 325mg Tab) 650 mg PO Q6H PRN PRN Reason: TEMP>=99.5F Last Admin: 07/19/17 14:18 Dose: 650 mg Acetaminophen (Tylenol 650 Mg Supp) 650 mg RC Q4H PRN PRN Reason: TEMP>=99.5F Aripiprazole (Abilify) 5 mg PO QAM [facility] Last Admin: 07/19/17 10:36 Dose: 5 mg Cyanocobalamin (Vitamin B12 1000 Mcg/Ml Inj) 1,000 mcg IM DAILY [facility] Stop: 07/27/17 10:01 Last Admin: 07/19/17 10:35 Dose: 1,000 mcg Ergocalciferol (Drisdol 50,000 Intl Units Cap) 1 cap PO Q7D [facility] Last Admin: 07/16/17 22:29 Dose: 1 cap Escitalopram Oxalate (Lexapro) 10 mg PO QAM [facility] Last Admin: 07/19/17 10:36 Dose: 10 mg Folic Acid (Folic Acid) 1 mg PO DAILY [facility] Last Admin: 07/19/17 10:37 Dose: 1 mg Furosemide (Lasix) 40 mg IVP Q12 [facility] Last Admin: 07/19/17 22:00 Dose: 40 mg Metronidazole (Flagyl) 500 mg in 100 mls @ 100 mls/hr IVPB Q8 [facility] PRN Reason: Protocol Last Admin: 07/20/17 06:05 Dose: 100 mls/hr Cefepime HCl (Maxipime 1gm) 1 gm in 100 mls @ 100 mls/hr IVPB Q8 [facility] PRN Reason: Protocol Last Admin: 07/20/17 06:52 Dose: 100 mls/hr Lorazepam (Ativan) 2 mg PO QID [facility] PRN Reason: Protocol Last Admin: 07/19/17 23:49 Dose: 2 mg Metoprolol Tartrate (Lopressor) 25 mg PO Q8H [facility] Last Admin: 07/20/17 06:50 Dose: 25 mg Pantoprazole Sodium (Protonix Inj) 40 mg IVP Q12H [facility] Last Admin: 07/19/17 22:00 Dose: 40 mg Potassium Chloride (K-Dur 20 Meq Er Tab) 20 meq PO Q8H [facility] Last Admin: 07/20/17 00:01 Dose: 20 meq Sucralfate (Carafate Oral Susp) 1 gm PO 0600,1600 [facility] Last Admin: 07/20/17 06:05 Dose: 1 gm - Labs Labs: 07/20/17 05:00 07/20/17 08:31 PT 12.6 SECONDS (9.4-12.5) H 07/15/17 18:47 INR 1.10 (0.93-1.08) H 07/15/17 18:47 APTT 30.3 Seconds (25.1-36.5) 07/15/17 18:47 - Constitutional Appears: No Acute Distress - Head Exam Head Exam: ATRAUMATIC, NORMOCEPHALIC - ENT Exam ENT Exam: Mucous Membranes Moist, Normal Oropharynx - Respiratory Exam Respiratory Exam: Accessory Muscle Use. absent: Respiratory Distress - GI/Abdominal Exam GI & Abdominal Exam: Soft. absent: Distended, Tenderness - Extremities Exam Extremities Exam: Pedal Edema - Neurological Exam Neurological Exam: Alert, Awake, Oriented x3 - Psychiatric Exam Psychiatric exam: Flat Affect, Normal Mood - Skin Skin Exam: Intact, Normal Color, Warm. absent: Dry Assessment and Plan - Assessment and Plan (Free Text) Assessment: 52F with contraindication for PO intake d/t severe esophagitis Plan -Follow up with primary/family/IR for plans for g-tube -Patient is a very poor surgical candidate and may not be able to be compliant with J-tube use -Continue management per primary Discussed with Dr. Mylene Rizo, PGY2
[2017-07-20] MEDS ORDERED: Vancomycin 2 GM in Sodium Chloride 0.9% 500 ML IVPB ONE (12:06)
[2017-07-20 14:44] VITALS: BP 141/91; PULSE 102
--- NOTE | 2017-07-20 23:05 | CON ---
DATE: 07/20/2017 LOCATION: Patient is in room 560, bed 1, seen earlier this morning. CHIEF COMPLAINT: Fever times several days. HISTORY OF PRESENT ILLNESS: This is a 52-year-old morbidly obese female with a BMI of 47, who is developmentally disabled, has depression and bipolar, has anxiety and cholelithiasis, who is admitted through the emergency room with diagnosis of anemia and edema of the leg, found to have a fever of 102. Infectious Disease consultation requested. REVIEW OF SYSTEMS: Reveals the patient felt congested, shortness of breath and cough. No chest pain. No abdominal pain, diarrhea or constipation. No bright red blood per rectum. No melena. PAST MEDICAL HISTORY: Significant for morbid obesity, BMI of 47, developmentally disabled, anxiety, depression, bipolar, and cholelithiasis. PAST SURGICAL HISTORY: Significant for appendectomy. ALLERGIES: The patient has no known allergies. MEDICATIONS AT HOME: Reveal lorazepam, famotidine, Nexium, Lexapro, Abilify. PHYSICAL EXAMINATION: GENERAL: The patient is in bed, in no acute distress, answering questions slowly. VITAL SIGNS: Temperature is 98, T-max is 102.8, respiratory rate of 22, heart rate of 93. HEENT: Examination of HEENT is unremarkable. NECK: Supple. LUNGS: Have decreased breath sounds. HEART: Normal S1, S2. ABDOMEN: Soft, nontender. No rebound or guarding. EXTREMITIES: On examination of the legs, there is edema. No evidence of infection in the skin. LABORATORY DATA: Reveals a white count of 4.7, hemoglobin of 9. Coagulation is noted. BUN of 19, creatinine of 0.7. Microbiology reveals the blood cultures are no growth. Chest x-ray is reported to be negative. ASSESSMENT AND PLAN: A 52-year-old female, morbidly obese, BMI of 47, developmentally disabled, anxiety, depression, bipolar, cholelithiasis, appendectomy, who was admitted with the diagnosis of anemia and edema. On admission, did not have fevers. Now has temperature yesterday of 102, three days after admission, and a negative chest x-ray. The patient has systemic inflammatory response syndrome, must rule out underlying healthcare-associated pneumonia, although the chest x-ray is reported to be negative. We will check on the blood cultures, urine cultures, urinalysis and procalcitonin. The patient was started on cefepime and Flagyl. We will give 2 g of vancomycin x1 pending pancultures and procalcitonin results. Andre Lin MD
[2017-07-22 09:51] LABS: METHYLMALONIC ACID,SERUM 127 nmol/L (87-318)
--- NOTE | 2017-07-22 17:09 | PN ---
DATE: 07/22/2017 CARDIOLOGY FOLLOWUP SUBJECTIVE: The patient is comfortable in the TCU. No shortness of breath noted. PHYSICAL EXAMINATION: VITAL SIGNS: Blood pressure is 113/76, heart rate in the 70s. NECK: Negative JVD. LUNGS: Bilateral rhonchi. HEART: S1, S2 with a 2/6 systolic ejection murmur. EXTREMITIES: Decreasing edema. LABORATORY DATA: Hemoglobin is 10.9. Chemistries: BUN and creatinine unremarkable. IMPRESSION: 1. Acute systolic congestive heart failure. 2. Mitral regurgitation. 3. Gastrointestinal bleed secondary to upper gastrointestinal ulcer. 4. Anemia. Given these findings, once her ulcer is healed, we will proceed to [facility] for evaluation as the patient is a candidate for mitral clip for mitral regurgitation. Hugo Lockwood MD
== END 2017-07-20 16:12 | DRG 380 ==
LOC: ED 17:47 → ERH 21:21 → 5RNO 07-16 23:36 → OBSVTOIN 07-17 10:57
PROVIDERS: ADMIT Internal Medicine; ATTEND Internal Medicine
PROC: 30233N1 Transfusion of Nonautologous Red Blood Cells into Peripheral Vein, Percutaneous Approach (ICD-10-PCS; 2017-07-16)
PROC: 0DB58ZX Excision of Esophagus, Via Natural or Artificial Opening Endoscopic, Diagnostic (ICD-10-PCS; principal; 2017-07-17 09:15)
DX: K22.10 Ulcer of esophagus without bleeding (principal); I50.21 Acute systolic (congestive) heart failure; I27.21 Secondary pulmonary arterial hypertension; R65.10 Systemic inflammatory response syndrome (SIRS) of non-infectious origin without acute organ dysfunction; E66.01 Morbid (severe) obesity due to excess calories; K22.2 Esophageal obstruction; I11.0 Hypertensive heart disease with heart failure; J98.11 Atelectasis; Z68.42 Body mass index [BMI] 45.0-49.9, adult; K92.2 Gastrointestinal hemorrhage, unspecified; D50.9 Iron deficiency anemia, unspecified; E53.8 Deficiency of other specified B group vitamins; E55.9 Vitamin D deficiency, unspecified; E87.6 Hypokalemia; F31.9 Bipolar disorder, unspecified; F41.0 Panic disorder [episodic paroxysmal anxiety]; F91.9 Conduct disorder, unspecified; I34.1 Nonrheumatic mitral (valve) prolapse; I34.0 Nonrheumatic mitral (valve) insufficiency; I25.10 Atherosclerotic heart disease of native coronary artery without angina pectoris; I25.2 Old myocardial infarction; I89.0 Lymphedema, not elsewhere classified; K21.9 Gastro-esophageal reflux disease without esophagitis; K29.70 Gastritis, unspecified, without bleeding; K44.9 Diaphragmatic hernia without obstruction or gangrene; K80.20 Calculus of gallbladder without cholecystitis without obstruction; M47.816 Spondylosis without myelopathy or radiculopathy, lumbar region; R79.1 Abnormal coagulation profile; Z79.899 Other long term (current) drug therapy; Z80.0 Family history of malignant neoplasm of digestive organs; Z87.11 Personal history of peptic ulcer disease; Z87.440 Personal history of urinary (tract) infections; Z90.49 Acquired absence of other specified parts of digestive tract; I87.8 Other specified disorders of veins; R00.0 Tachycardia, unspecified; E05.90 Thyrotoxicosis, unspecified without thyrotoxic crisis or storm; F89 Unspecified disorder of psychological development

== ENCOUNTER 2017-07-20 16:12 | Inpatient (IN) | payer OTHER ==
[2017-07-20] MEDS: Ergocalciferol 50,000 Intl Units Cap PO SCH (18:38)
[2017-07-20 20:11] VITALS: BMI 42.3
[2017-07-20] MEDS: Cefepime 1gm in NS 100ml 1 GM/100 ML BAG IVPB SCH (22:22)
[2017-07-20] MEDS: metroNIDAZOLE IV 500 mg/100 ml 500 MG/100 ML BAG IVPB SCH (22:23)
[2017-07-20] MEDS: Potassium Chloride 20 mEq ER Tab PO SCH (22:24)
[2017-07-21] MEDS: metroNIDAZOLE IV 500 mg/100 ml 500 MG/100 ML BAG IVPB SCH ×3 (06:00→21:55)
[2017-07-21] MEDS: Sucralfate 1 gm/10 ml Oral Susp UD PO SCH ×2 (06:00→17:26)
[2017-07-21] MEDS: Cefepime 1gm in NS 100ml 1 GM/100 ML BAG IVPB SCH ×3 (06:01→22:35)
[2017-07-21 07:27] LABS: HEMOGLOBIN 10.9 g/dL (12.0-16.0); MEAN CELL VOLUME 75.7 fl (80.0-105.0); MEAN CORPUSCULAR HEMOGLOBIN 20.5 pg (25.0-35.0); MEAN CORPUSCULAR HGB CONC 27.1 g/dl (31.0-37.0); MEAN PLATELET VOLUME 9.1 fl (7.0-11.0); RBC 5.31 10^6/uL (3.5-6.1); RED CELL DISTRIBUTION WIDTH 29.4 % (11.5-14.5); WHITE BLOOD COUNT 4.2 10^3/ul (4.5-11.0)
[2017-07-21 08:20] LABS: ALB/GLOB RATIO 1.2 (1.1-1.8); ALBUMIN 3.6 g/dL (3.0-4.8); ALT/SGPT 21 U/L (7-56); AST/SGOT 23 U/L (14-36); BILIRUBIN,DIRECT 0.5 mg/dL (0.0-0.4); BLOOD UREA NITROGEN 19 mg/dL (7-21); CALCIUM 8.4 mg/dL (8.4-10.5); GFR AFRICAN-AMERICAN > 60; GFR NON-AFRICAN AMERICAN > 60; MAGNESIUM 2.2 mg/dL (1.7-2.2)
--- NOTE | 2017-07-21 09:59 | CP.PCM.PN ---
<Wu Cerda Vira - Last Filed: 07/21/17 09:55> Subjective - Date & Time of Evaluation Date of Evaluation: 07/21/17 Time of Evaluation: 09:56 - Subjective Subjective: General Surgery progress note for Dr. Chakraborty Patient seen and examined at bedside. No acute overnight events, patient denies nausea vomiting diarrhea. Objective - Vital Signs/Intake and Output Vital Signs (last 24 hours): Temp Pulse Resp BP Pulse Ox 98.6 F 83 18 118/80 96 07/20/17 17:01 07/21/17 06:04 07/20/17 20:02 07/21/17 06:04 07/20/17 16:15 Intake and Output: 07/21/17 07/21/17 06:59 18:59 Intake Total 340 Balance 340 - Medications Medications: Current Medications Acetaminophen (Tylenol 325mg Tab) 650 mg PO Q6H PRN; Protocol PRN Reason: Fever >99.5 F Acetaminophen (Tylenol 650 Mg Supp) 650 mg RC Q4H PRN; Protocol PRN Reason: fever>99.5 F Aripiprazole (Abilify) 5 mg PO QAM [facility] PRN Reason: Protocol Cyanocobalamin (Vitamin B12 1000 Mcg/Ml Inj) 1,000 mcg IM DAILY [facility] PRN Reason: Protocol Stop: 07/27/17 10:00 Ergocalciferol (Drisdol 50,000 Intl Units Cap) 1 cap PO Q7D [facility] PRN Reason: Protocol Last Admin: 07/20/17 18:38 Dose: 1 cap Escitalopram Oxalate (Lexapro) 10 mg PO DAILY [facility] Folic Acid (Folic Acid) 1 mg PO DAILY [facility] PRN Reason: Protocol Furosemide (Lasix) 40 mg IVP 0600,1800 [facility] PRN Reason: Protocol Last Admin: 07/21/17 06:09 Dose: 40 mg Metronidazole (Flagyl) 500 mg in 100 mls @ 100 mls/hr IVPB Q8 [facility] PRN Reason: Protocol Last Admin: 07/21/17 06:00 Dose: 100 mls/hr Cefepime HCl (Maxipime 1gm) 1 gm in 100 mls @ 100 mls/hr IVPB Q8 [facility] PRN Reason: Protocol Last Admin: 07/21/17 06:01 Dose: 100 mls/hr Lorazepam (Ativan) 2 mg PO QID [facility] PRN Reason: Protocol Last Admin: 07/20/17 22:25 Dose: Not Given Metoprolol Tartrate (Lopressor) 25 mg PO 0600,1400,2200 [facility] PRN Reason: Protocol Last Admin: 07/21/17 06:04 Dose: Not Given Oseltamivir Phosphate (Tamiflu Cap) 75 mg PO BID [facility] PRN Reason: Protocol Stop: 07/26/17 08:45 Pantoprazole Sodium (Protonix Inj) 40 mg IVP Q12 [facility] PRN Reason: Protocol Last Admin: 07/20/17 22:24 Dose: 40 mg Potassium Chloride (K-Dur 20 Meq Er Tab) 20 meq PO TID [facility] PRN Reason: Protocol Last Admin: 07/20/17 22:24 Dose: 20 meq Sucralfate (Carafate Oral Susp) 1 gm PO 0600,1600 [facility] PRN Reason: Protocol Last Admin: 07/21/17 06:00 Dose: 1 gm - Labs Labs: 07/21/17 06:45 07/21/17 06:45 - Constitutional Appears: Well - Head Exam Head Exam: ATRAUMATIC, NORMAL INSPECTION, NORMOCEPHALIC - Eye Exam Eye Exam: EOMI, Normal appearance, PERRL Pupil Exam: NORMAL ACCOMODATION, PERRL - ENT Exam ENT Exam: Mucous Membranes Moist, Normal Exam - Neck Exam Neck Exam: Full ROM, Normal Inspection. absent: Lymphadenopathy - Respiratory Exam Respiratory Exam: Clear to Ausculation Bilateral, NORMAL BREATHING PATTERN - Cardiovascular Exam Cardiovascular Exam: REGULAR RHYTHM, +S1, +S2. absent: Murmur - GI/Abdominal Exam GI & Abdominal Exam: Soft, Normal Bowel Sounds. absent: Tenderness - Rectal Exam Rectal Exam: NORMAL INSPECTION - Extremities Exam Extremities Exam: Full ROM, Normal Capillary Refill, Normal Inspection. absent : Joint Swelling, Pedal Edema - Back Exam Back Exam: NORMAL INSPECTION - Neurological Exam Neurological Exam: Alert, Awake, CN II-XII Intact, Normal Gait, Oriented x3 - Psychiatric Exam Psychiatric exam: Normal Affect, Normal Mood - Skin Skin Exam: Dry, Intact, Normal Color, Warm Assessment and Plan - Assessment and Plan (Free Text) Assessment: 52F with contraindication for PO intake d/t severe esophagitis Plan -Follow up with primary/family/IR for plans for g-tube -Patient is a very poor surgical candidate and may not be able to be compliant with J-tube use -Continue management per primary -At this time, no further surgical intervention <Jermaine Chakraborty - Last Filed: 07/28/17 00:12> Objective - Vital Signs/Intake and Output Vital Signs (last 24 hours): Temp Pulse Resp BP Pulse Ox 97.3 F L 82 20 119/77 98 07/27/17 10:00 07/27/17 17:52 07/27/17 10:00 07/27/17 17:56 07/27/17 10:00 - Medications Medications: Current Medications Acetaminophen (Tylenol 325mg Tab) 650 mg PO Q6H PRN; Protocol PRN Reason: Fever >99.5 F Acetaminophen (Tylenol 650 Mg Supp) 650 mg RC Q4H PRN; Protocol PRN Reason: fever>99.5 F Acetylcysteine (Acetylcysteine 20%) 4 ml IH [id number] [facility] Last Admin: 07/27/17 19:07 Dose: 4 ml Aripiprazole (Abilify) 5 mg PO QAM [facility] PRN Reason: Protocol Last Admin: 07/27/17 09:55 Dose: 5 mg Benzonatate (Tessalon Perles) 200 mg PO TID [facility] Last Admin: 07/27/17 17:52 Dose: 200 mg Ergocalciferol (Drisdol 50,000 Intl Units Cap) 1 cap PO Q7D [facility] PRN Reason: Protocol Last Admin: 07/27/17 17:51 Dose: 1 cap Escitalopram Oxalate (Lexapro) 10 mg PO DAILY [facility] Last Admin: 07/27/17 09:56 Dose: 10 mg Folic Acid (Folic Acid) 1 mg PO DAILY [facility] Last Admin: 07/27/17 09:56 Dose: 1 mg Furosemide (Lasix) 40 mg IVP 0600,1800 [facility] PRN Reason: Protocol Last Admin: 07/27/17 17:56 Dose: 40 mg Pantoprazole Sodium (Protonix 40mg Ivpb) 40 mg in 100 mls @ 200 mls/hr IVPB 0600,1800 [facility] Last Admin: 07/27/17 17:52 Dose: 200 mls/hr Levalbuterol HCl (Xopenex) 0.63 mg IH [id number] [facility] Last Admin: 07/27/17 19:07 Dose: 0.63 mg Lorazepam (Ativan) 2 mg PO Q8H [facility] PRN Reason: Protocol Last Admin: 07/27/17 17:56 Dose: 2 mg Metoprolol Tartrate (Lopressor) 25 mg PO 0800,1230,1800 [facility] PRN Reason: Protocol Last Admin: 07/27/17 17:52 Dose: 25 mg Ondansetron HCl (Zofran Inj) 4 mg IVP Q4H PRN PRN Reason: Nausea/Vomiting Last Admin: 07/23/17 11:57 Dose: 4 mg Potassium Chloride (K-Dur 20 Meq Er Tab) 20 meq PO 0730,1230,1800,2200 [facility] PRN Reason: Protocol Last Admin: 07/27/17 22:08 Dose: 20 meq Sucralfate (Carafate Oral Susp) 1 gm PO 0600,1600 [facility] PRN Reason: Protocol Last Admin: 07/27/17 17:51 Dose: 1 gm - Labs Labs: 07/27/17 06:01 07/27/17 06:01 Assessment and Plan - Assessment and Plan (Free Text) Assessment: Patient was seen and examined by me. I agree with assessment and plan as per resident's note.
[2017-07-21] MEDS: Potassium Chloride 20 mEq ER Tab PO SCH ×3 (10:34→17:26)
--- NOTE | 2017-07-21 13:16 | PN ---
DATE: 07/21/2017 CARDIOLOGY FOLLOWUP SUBJECTIVE: The patient is comfortable in the TCU. OBJECTIVE: VITAL SIGNS: Blood pressure is 118/80, heart rates in the 80s. NECK: Negative JVD. LUNGS: Without rales. HEART: S1, S2 with 2/6 systolic ejection murmur. EXTREMITIES: Decreasing edema. LABORATORY DATA: Hemoglobin is 10.9. Chemistries: BUN and creatinine unremarkable. IMPRESSION: 1. Status post marked anemia which is better after transfusions. 2. Large ulcer in the upper gastrointestinal tract. 3. Mitral regurgitation. 4. History of increasing left ventricular diastolic size. Given these findings, the patient will need a MILTON once her ulcer is resolved. Doing a MILTON now will carry a high risk for perforation. Hugo Lockwood MD
--- NOTE | 2017-07-21 14:07 | RAD ---
HISTORY: cough COMPARISON: 07/18/2017 TECHNIQUE: Chest PA and lateral FINDINGS: LUNGS: No active pulmonary disease. PLEURA: No significant pleural effusion identified. No pneumothorax apparent. CARDIOVASCULAR: Moderate cardiomegaly OSSEOUS STRUCTURES: No significant abnormalities. VISUALIZED UPPER ABDOMEN: Normal. OTHER FINDINGS: None. IMPRESSION: No active disease.
--- NOTE | 2017-07-21 16:52 | CP.PCM.CON ---
History of Present Illness - History of Present Illness History of Present Illness: 52 year old female with PMH of morbid obesity with BMI 42, chronic CHF, severe esophagitis, chronci anemia, S/P appendectomy, developmental disability, bipolar disorder, anxiety, cholelithiasis came in to [facility] because anemia and for the esophagitis. She was then found to be febrile and Infectious Diseases consult was requested to further evaluate and manage. She is now transferred to [facility] for continued medical management and physical rehab. She currently denies headache or dizziness, no chest pain, no SOB, no rhinorrhea, no cough, no sore throat, no nausea or vomiting, no abdominal pain, no diarrhea, no dysuria. Review of Systems - Review of Systems All systems: reviewed and no additional remarkable complaints except (as per HPI ) Past Patient History - Infectious Disease Hx of Infectious Diseases: None - Tetanus Immunizations Tetanus Immunization: Unknown - Past Social History Smoking Status: Never Smoked - CARDIAC Hx Cardiac Disorders: Yes - PULMONARY Hx Respiratory Disorders: No - NEUROLOGICAL Hx Neurological Disorder: (near syncope) Hx Dizziness: Yes - HEENT Hx HEENT Problems: Yes (patient wears eyeglasses) - RENAL Hx Chronic Kidney Disease: No - ENDOCRINE/METABOLIC Hx Endocrine Disorders: No - HEMATOLOGICAL/ONCOLOGICAL Hx Anemia: Yes - INTEGUMENTARY Hx Dermatological Problems: No - MUSCULOSKELETAL/RHEUMATOLOGICAL Hx Falls: No - GASTROINTESTINAL Hx Gastrointestinal Disorders: Yes Hx Gall Bladder Disease: Yes (CHOLELITHIASIS) Hx Gastroesophageal Reflux: Yes Hx Ulcer: Yes Other/Comment: endo 06/13/17 dx severe esophagitis and hiatal hernia - GENITOURINARY/GYNECOLOGICAL Hx Genitourinary Disorders: Yes Hx Urinary Tract Infection: Yes Other/Comment: ENDOMETRIOSIS gone since menopause - PSYCHIATRIC Hx Anxiety: Yes Hx Depression: Yes Hx Emotional Abuse: No Hx Physical Abuse: No Hx Substance Use: No - SURGICAL HISTORY Hx Surgeries: Yes - ANESTHESIA Hx Anesthesia Reactions: No Hx Malignant Hyperthermia: No Meds Allergies/Adverse Reactions: Allergies Allergy/AdvReac Type Severity Reaction Status Date / Time No Known Allergies Allergy Verified 07/15/17 18:09 - Medications Medications: Current Medications Acetaminophen (Tylenol 325mg Tab) 650 mg PO Q6H PRN; Protocol PRN Reason: Fever >99.5 F Acetaminophen (Tylenol 650 Mg Supp) 650 mg RC Q4H PRN; Protocol PRN Reason: fever>99.5 F Aripiprazole (Abilify) 5 mg PO QAM [facility] PRN Reason: Protocol Cyanocobalamin (Vitamin B12 1000 Mcg/Ml Inj) 1,000 mcg IM DAILY [facility] PRN Reason: Protocol Stop: 07/27/17 10:00 Ergocalciferol (Drisdol 50,000 Intl Units Cap) 1 cap PO Q7D [facility] PRN Reason: Protocol Last Admin: 07/20/17 18:38 Dose: 1 cap Escitalopram Oxalate (Lexapro) 10 mg PO DAILY [facility] Folic Acid (Folic Acid) 1 mg PO DAILY [facility] PRN Reason: Protocol Furosemide (Lasix) 40 mg IVP 0600,1800 [facility] PRN Reason: Protocol Last Admin: 07/21/17 06:09 Dose: 40 mg Metronidazole (Flagyl) 500 mg in 100 mls @ 100 mls/hr IVPB Q8 [facility] PRN Reason: Protocol Last Admin: 07/21/17 06:00 Dose: 100 mls/hr Cefepime HCl (Maxipime 1gm) 1 gm in 100 mls @ 100 mls/hr IVPB Q8 [facility] PRN Reason: Protocol Last Admin: 07/21/17 06:01 Dose: 100 mls/hr Lorazepam (Ativan) 2 mg PO QID [facility] PRN Reason: Protocol Last Admin: 07/20/17 22:25 Dose: Not Given Metoprolol Tartrate (Lopressor) 25 mg PO 0600,1400,2200 [facility] PRN Reason: Protocol Last Admin: 07/21/17 06:04 Dose: Not Given Oseltamivir Phosphate (Tamiflu Cap) 75 mg PO BID [facility] PRN Reason: Protocol Stop: 07/26/17 08:45 Pantoprazole Sodium (Protonix Inj) 40 mg IVP Q12 [facility] PRN Reason: Protocol Last Admin: 07/20/17 22:24 Dose: 40 mg Potassium Chloride (K-Dur 20 Meq Er Tab) 20 meq PO TID [facility] PRN Reason: Protocol Last Admin: 07/20/17 22:24 Dose: 20 meq Sucralfate (Carafate Oral Susp) 1 gm PO 0600,1600 [facility] PRN Reason: Protocol Last Admin: 07/21/17 06:00 Dose: 1 gm Physical Exam - Constitutional Appears: Chronically Ill - Head Exam Head Exam: NORMAL INSPECTION - ENT Exam ENT Exam: Mucous Membranes Moist - Neck Exam Neck exam: Negative for: Meningismus - Respiratory Exam Respiratory Exam: Decreased Breath Sounds - Cardiovascular Exam Cardiovascular Exam: +S1, +S2 - GI/Abdominal Exam GI & Abdominal Exam: Soft. absent: Tenderness Results - Vital Signs Recent Vital Signs: Last Vital Signs Temp 98.6 F 07/20/17 17:01 Pulse 83 07/21/17 06:04 Resp 18 07/20/17 20:02 BP 118/80 07/21/17 06:04 Pulse Ox 96 07/20/17 16:15 - Labs Result Diagrams: 07/21/17 06:45 07/21/17 06:45 Labs: Laboratory Results - last 24 hr 07/21/17 07/21/17 06:45 06:45 WBC 4.2 L RBC 5.31 Hgb 10.9 L Hct 40.2 MCV 75.7 L MCH 20.5 L MCHC 27.1 L RDW 29.4 H Plt Count 301 MPV 9.1 Sodium 145 Potassium 3.7 Chloride 103 Carbon Dioxide 29 Anion Gap 17 BUN 19 Creatinine 0.7 Est GFR ( Amer) > 60 Est GFR (Non-Af Amer) > 60 Random Glucose 93 Calcium 8.4 Phosphorus 3.8 Magnesium 2.2 Total Bilirubin 0.7 Direct Bilirubin 0.5 H AST 23 ALT 21 Alkaline Phosphatase 84 Total Protein 6.6 Albumin 3.6 Globulin 3.0 Albumin/Globulin Ratio 1.2 Assessment & Plan - Assessment and Plan (Free Text) Plan: Assessment Systemic viral illness with Influenza R/O bacterial sepsis morbid obesity with BMI 42 chronic CHF severe esophagitis chronic anemia S/P appendectomy developmental disability bipolar disorder anxiety cholelithiasis Plan Started Tamiflu - rapif flu test is positive continue Cefepime and Flagyl pending final culture results will monitor clinically
--- NOTE | 2017-07-21 23:44 | HP ---
LOCATION: The patient is seen in room #304, bed 1. Patient has been admitted to an acute care floor from 07/15/2017 to 07/20/2017. Please refer to the detailed history and physical examination and all acute care floor details from 07/15/2017. Patient is seen today in room #304, bed 1. Patient is seen with the patient's sister at bedside. HISTORY OF PRESENT ILLNESS: The patient is a 52-year-old morbidly obese short-statured female, came to the emergency room earlier today around 8:00-8:30 in the morning complaining of leg pain. The patient was seen in the emergency room by the ER physician. The patient came for the left knee pain and redness to the left thigh. The patient was seen by the physician assistant to the ceo. The patient complained of leg pain and was discharged, but later on the patient came back. The patient had a knee x-ray done today this morning for the left knee left leg pain, which reveals x-ray was negative, and the patient was discharged home. But later on, the patient came back again today complaining of shortness of breath and increasing bilateral leg swelling. The patient came to the emergency room accompanied by her sister who works as a school secretary on third floor. The patient also complained of symptoms severity of 5/10. The patient's code status is full code. Living will advance directive, none. ALLERGIES: None. Height is 5 feet 3 inches. Weight is 263 pounds. Next BMI is 47. The patient is in the emergency room, bed 12. HOME MEDICATIONS: Nexium 40 mg daily, Lexapro 10 mg daily, Abilify 5 mg daily, Ativan 2 mg four times a day, Pepcid 20 mg daily. SUBSTANCE ABUSE/SOCIAL HISTORY: Negative for alcohol smoking, drug use, communicable transmissible disease. MENSTRUAL HISTORY: The patient denies being . Sister denies being . PAST MEDICAL AND SURGICAL HISTORY: History of grade C esophagitis, history of possible Thompson's esophagus, history of dense breast, history of morbid obesity with elevated body mass index, history of anxiety, history of depression, history of developmental disorder, history of bilateral lower extremity venous stasis, history of developmental disorder, history of hypercholesterolemia, history of urinary tract infection in 2013, history of degenerative joint disease of the knees, history of diffuse bone demineralization, history of cholelithiasis, history of cardiomegaly, history of multiple endoscopies, history of appendicitis, history of laparoscopic appendectomy in 2013, history of right renal hypoechoic lesion - etiology undetermined, history of chronic gastritis, left ventricular ejection fraction of 63% on echocardiogram done in 2014, history of 1+ mitral regurgitation with moderate mitral valve prolapse, history of cardiac catheterization done in 2011, history of mildly dilated left ventricle with normal left ventricular ejection fraction, history of hypertensive cardiovascular disease, last echocardiogram done in December of 2015 showing left ventricle ejection fraction of 56% with borderline dilated left ventricle, history of moderately dilated left atrium, history of moderately thickened mitral valve with moderate mitral regurgitation, moderate mitral valve prolapse and mild pulmonary arterial hypertension with right ventricular systolic pressure of 35 mmHg, history of history of frequent PVCs, history of vertigo, history of hypokalemia, history of acute labyrinthitis, history of insomnia, history of intractable dizziness and vomiting, history of vertigo, history of vestibular neuritis, history of hypocalcemia, history of Shoshone grade C reflux esophagitis with one or more mucosal breaks continuous between the top of poor more mucosal folds less than 70% circumference, esophagitis at 25 cm from the incisors, history of hiatal hernia, history of nonbleeding esophageal ulcers, history of gastric fundus polyp nonbleeding, history of antral gastritis, history of internal hemorrhoids, history of colonoscopy, history of redundant colon, history of nodular ileum mucosa. PHYSICAL EXAMINATION: GENERAL: The patient is in the emergency room in bed #11. The patient's sister is present at the bedside who has accompanied the patient. The patient appears to be comfortable.. The patient does report shortness of breath, leg swelling. The patient is developmentally slow. VITAL SIGNS: T-max 98.1, heart rate 114, blood pressure 121/80, respiratory rate 21, O2 sat 98%. HEENT: Head examination normocephalic, atraumatic. HEENT examination shows pale conjunctivae, anicteric sclerae. No oropharyngeal lesion. Questionable jugular venous distention. CHEST: Kyphosis. LUNGS: Examination shows decreased breath sounds at the bases, poor inspiratory effort, questionable decreased breath sound at the left base. CARDIOVASCULAR: S1, S2, regular rhythm. Positive systolic murmur in the left sternal border, left second intercostal space, right second intercostal space. ABDOMEN: Obese. Positive bowel sound. Positive healed surgical scar of laparoscopic appendectomy. Positive epigastric periumbilical tenderness noted. Unable to appreciate any hepatosplenomegaly. Questionable right upper quadrant deep tenderness. GENITALIA: Female. RECTAL: Examination is deferred. EXTREMITIES: Shows 2-3+ pedal edema. No reproducible calf tenderness. Spine x-ray is negative. NEUROLOGICAL: Cranial nerves II-XII limited. The patient's speech is clear. The patient is alert, awake, responsive. Motor strength is 5/5. DIAGNOSTICS: There were two CBCs done. Initial CBC shows WBCs ranging 7.3-8.1, hemoglobin/hematocrit of 5.7/22.8, 6.1/24, MCV 65, platelet 380 and 426. Granulocytes is 72. Retic count 2.4. PT/PTT of 12.6/30.3, D-dimer is 535. VBG, lactate is negative. Sodium 143, potassium 3.7, chloride 108, CO2 24, anion gap 15, BUN 14, creatinine 0.7, GFR greater than 60, glucose 101, calcium 9.1, iron 11, saturation 2, TIBC 444. LFTs, troponin negative. BNP is 387. TSH is 2.06, T4 is 12.6. Blood type is A+. Chest x-ray shows cardiomegaly. Venous Doppler was sent for both extremity, which was negative for DVT. The patient had a CT angio done, which shows atelectasis scarring, mosaic pattern of the lung parenchyma, interlobular septal thickening, moderate cardiomegaly, moderate-sized hiatal hernia, refractured calcified gallstones, possible early interstitial edema. EKG done in the emergency room shows sinus tachycardia, left ventricular hypertrophy, questionable left axis deviation. The patient's EKG was compared with the EKG of 2015, which shows similar findings, left ventricular hypertrophy. The patient was seen in the emergency room by [facility]. The patient was seen in the ER. The patient was typed and crossmatch. The patient was started transfusion of PRBC. The patient was admitted. IMPRESSION AND PLAN: 1. Severe symptomatic anemia with symptoms of bilateral lower extremity venous stasis, dyspnea on exertion and shortness of breath. 2. Sinus tachycardia. 3. Severe symptomatic anemia, microcytic anemia. 4. Granulocytosis. 5. Elevated reticulocyte count. 6. Elevated D-dimer. 7. Iron-deficiency anemia. 8. Questionable hyperthyroidism with elevated T4 of 12.6. 9. Moderate cardiomegaly. 10. Bibasilar atelectasis scarring with bilateral pulmonary mosaic pattern of the lung parenchyma. 11. Mild interlobular septal thickening. 12. Moderate hiatal hernia. 13. Healing refracture. 14. Calcified cholelithiasis. 15. Elevated right hemidiaphragm. 16. Left ventricular hypertrophy and hypertensive cardiovascular disease. 17. Age indeterminate inferior infarct. 18. Questionable hypertension. PLAN: At this time, the patient has been started transfusion of 2 units of PRBC in the emergency room. The patient has been admitted to [facility]. B12, folate, transferrin, serial CBC, CMP, LFTs, erythropoietin ordered. Consultation; Cardiology, Gastroenterology. The patient is resumed on home medications, Abilify 5 mg a.m., Ativan 2 mg four times a day, Lexapro 10 mg daily, Protonix 40 IV q.12. The patient was started on liquid diet. For possible evaluation by Gastroenterology for GI intervention. The patient was given 1 liter of IV fluid by the ER physician assistant to the ceo. The venous Doppler of the lower extremity was negative for DVT. The patient has been ordered an echo with Doppler. The patient is on liquid diet, out of bed, TEDs stockings, SCDs, physical therapy, occupational therapy, transfusion of 2 units of PRBC ordered, stool occult blood ordered. In addition, the patient will also be started on IV Venofer. The patient will be ordered a thyroid ultrasound. The patient will be resumed on beta hayden. The patient will be given gentle diuresis. The patient will be put on clear liquid diet. Potassium supplementation will be ordered with diuretics. At present, the patient's need for hospitalization, need for further testing and diagnostic therapeutic intervention was discussed and explained with the patient's sister, Erika Jacob. All questions and concerns answered. At this time, the patient is awaiting for a bed on the floor. The patient is still in the emergency room in bed 12. PHYSICAL EXAMINATION: GENERAL: The patient is seen lying in the bed. VITAL SIGNS: T-max 102 degrees Fahrenheit yesterday, today is down 98.6, pulse 83-94, blood pressure , respirations 18, and O2 saturation is 96%. HEENT: Head: Normocephalic, atraumatic. Examination shows pinkish, pale conjunctivae. Anicteric sclerae. No oropharyngeal lesion. No neck rigidity. CHEST: Kyphosis. LUNGS: Shows no rales, crackles, or wheezing. Occasional rhonchi in the upper lung harry anteriorly. ABDOMEN: Morbidly obese. GENITALIA: Female. RECTAL: Deferred. EXTREMITIES: Show positive, nonpitting lymphedema. NEUROLOGIC: Patient is alert, awake, and responsive. Able to answer questions. Able to spell last name forward. MUSCULOSKELETAL: Shows a body mass index of 42. Cranial nerves II-XII are intact, limited. DIAGNOSTIC DATA: WBC 4.2, hemoglobin and hematocrit 11 and 40.2, and platelets 301. Sodium 145, potassium 3.7, chloride 103, CO2 29, anion gap 17, BUN 19, creatinine 0.7, GFR greater than 60, glucose 93, calcium 8.4, phosphorous 3.8, and magnesium 2.2. LFTs are normal. Influenza serologies: Influenza A is positive. IMPRESSION AND PLAN: 1. Deconditioning. 2. Gait dysfunction. 3. High-grade fever of 102 degrees Fahrenheit. 4. Influenza A positive. 5. Hypertension. 6. Severe symptomatic anemia with symptoms of shortness of breath. 7. Leukopenia. 8. Borderline hypokalemia. 9. Morbid obesity. 10. Left ventricular ejection fraction of 53%. 11. Pulmonary hypertension with a right ventricular systolic pressure of 56 mmHg. 12. Moderately dilated left ventricle. 13. Mildly dilated left atrium. 14. Thickened aortic valve. 15. Moderate mitral regurgitation with eccentrically-directed regurgitant jet. 16. Mild tricuspid regurgitation. 17. Moderate pulmonary arterial hypertension. 18 Shoshone grade D esophagitis and esophageal ulcer, extending from 24 cm level from incisors with Shoshone grade C distal esophagitis and esophageal ulcers. 19. Mid-esophageal area moderate stenosis at 24 cm. 20. Hiatal hernia. 21. Enterogastritis. 22. Status post packed red blood cell transfusion. 23. History of anxiety and depression, question bipolar disorder. 24. Hypovitaminosis D. 25. Hypokalemia. 26. Right-sided diastolic congestive heart failure with pulmonary arterial hypertension. 27. Vitamin B12 deficiency. 28. Escherichia coli urinary tract infection. 29. Basilar atelectasis. 30. Cardiomegaly. 1. Questionable and possible systemic inflammatory response syndrome with high-grade fever of 101.9. 2. Tachycardia. 3. Hypo and hypertension. 4. Severe symptomatic microcytic anemia, status post packed red blood cell transfusion x4. 5. Elevated reticulocyte count of greater than 2.5. 6. Elevated D-dimer of greater than 535, etiology undetermined. 7. Hypokalemia. 8. Severe iron deficiency anemia. 9. Vitamin B12 deficiency. 10. Questionable and possible subclinical hyperthyroidism. 11. Hypovitaminosis D. 12. Morbid obesity with body mass index of 47. 13. Developmentally disabled. 14. Hyperbilirubinemia. 15. Status post esophagogastroduodenoscopy and a grade B esophagitis. 16. Questionable and possible left atrial enlargement, coughing, and extrinsic esophageal stenosis. 17. History of anxiety, depression, and bipolar disorder. 18. Left ventricular ejection fraction of 53%. 19. [id number] pulmonary arterial hypertension with right ventricular systolic pressure of 56 mmHg. 20. Mildly dilated left ventricle. 21. Mildly dilated left atrium. 22. Moderate mitral regurgitation with eccentrically located regurgitant jet . 23. Moderate mitral regurgitation with posteriorly directed jet. 24. Sinus tachycardia with nonspecific ST-T wave changes. 1. Severe symptomatic anemia with symptoms of shortness of breath, dyspnea on exertion. 2. Hypertension. 3. Tachycardia. 4. Morbid obesity. 5. Severe gait dysfunction. 6. Microcytic anemia. 7. Status post packed red blood cell transfusion x4. 8. Elevated reticulocyte count of greater than 2.25. 9. Elevated D-dimer, etiology undetermined. 10. Hypokalemia. 11. Iron deficiency. 12. Severe vitamin B12 deficiency. 13. Hypovitaminosis D. 14. Questionable and possible subclinical hyperthyroidism with elevated T4. 15. Folate deficiency. 16. Gait dysfunction. 17. Deconditioning. 18. Left ventricular ejection fraction of 53-63%. 19. Pulmonary hypertension with right ventricular systolic pressure of 56 mmHg. 20. Cholelithiasis. 21. Status post esophagogastroduodenoscopy. 22. Shoshone grade D esophagitis extending from 24 cm level from incisors. 23. Shoshone grade C distal third esophagitis. 24. Mid esophageal area moderate esophageal stenosis at 24 cm from incisors. 25. Hiatal hernia. 26. Gastritis. 27. Midesophageal stenosis. 28. Moderate to severe mitral regurgitation with severe left atrial enlargement. 1. Status post esophagogastroduodenoscopy. 2. Shoshone grade D esophagitis extending from 24 cm level from the incisors. 3. Shoshone grade C distal esophageal esophagitis. 4. A 5 cm hiatal hernia. 5. Gastric antral inflammation. 6. Gastritis. 7. Moderate esophageal stenosis at 24 cm from incisors to midesophageal area. 8. Tachycardia. 9. Hypertension. 10. Super morbid obesity. 11. Microcytic anemia. 12. Status post packed red blood cell transfusion x4. 13. Elevated reticulocyte count of greater than 2.25. 14. Elevated D-dimer, etiology undetermined. 15. Hypokalemia. 16. Hyperbilirubinemia. 17. Hypovitaminosis D. 18. Bilateral lower extremity nonpitting lymphedema. 19. Severe vitamin B12 deficiency with vitamin B12 level of 208. 20. Relative folate deficiency. 21. Trace right pleural effusion. 22. Moderate cardiomegaly. 23. Moderate-sized hiatal hernia. 24. Atelectasis and scarring. 25. Calcified cholelithiasis. 26. Degenerative joint disease of the lumbar spine. 27. Hips and proximal thighs subcutaneous tissue stranding, etiology undetermined. 28. Subcentimeter mesenteric lymphadenopathy, nonspecific 29. Heterogeneous thyroid gland without nodules. 30. Multiple cholelithiasis. 31. Sinus tachycardia. 32. Questionable old inferior wall myocardial infarction. 33. Mitral regurgitation with increasing left ventricular size. 1. Low-grade fever, etiology undetermined. 2. Severe symptomatic anemia, microcytic anemia with symptoms of shortness of breath, dyspnea on exertion and bilateral lower extremity swelling. 3. Status post 1 unit of packed red blood cells. 4. Tachycardia. 5. Microcytic anemia with granulocytosis. 6. Elevated reticulocyte count. 7. Elevated D-dimer of greater than 500, etiology unclear. 8. Severe iron deficiency. 9. Possible subclinical hyperthyroidism with elevated thyroxine level. 10. A+ blood type. 11. History of moderate mitral regurgitation. 12. History of mild pulmonary arterial hypertension. 13. Abnormal EKG with nonspecific ST changes. 14. Morbid obesity with elevated body mass index of 47. 15. Bibasilar atelectasis, scarring and intralobular septal thickening with bilateral pulmonary mosaic pattern. 16. Cardiomegaly. 17. Coronary artery calcification. 18. Moderate-sized hiatal hernia. 19. Calcified cholelithiasis. 20. Elevated right hemidiaphragm. 21. Hypertensive cardiovascular disease. 22. 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 1. Severe symptomatic anemia with symptoms of bilateral lower extremity venous stasis, dyspnea on exertion and shortness of breath. 2. Sinus tachycardia. 3. Severe symptomatic anemia, microcytic anemia. 4. Granulocytosis. 5. Elevated reticulocyte count. 6. Elevated D-dimer. 7. Iron-deficiency anemia. 8. Questionable hyperthyroidism with elevated T4 of 12.6. 9. Moderate cardiomegaly. 10. Bibasilar atelectasis scarring with bilateral pulmonary mosaic pattern of the lung parenchyma. 11. Mild interlobular septal thickening. 12. Moderate hiatal hernia. 13. Healing refracture. 14. Calcified cholelithiasis. 15. Elevated right hemidiaphragm. 16. Left ventricular hypertrophy and hypertensive cardiovascular disease. 17. Age indeterminate inferior infarct. 18. Questionable hypertension. PLAN: At this time, patient is to be admitted to TCU. CONSULTATION: 1. Cardiology. 2 Gastroenterology. 3 Infectious Disease. 4. Interventional Radiology. 5. Psychiatry. CURRENT MEDICATIONS: 1. Abilify 5 mg p.o. q.a.m. to be held for sedation. 2. Ativan 2 mg q.i.d., to be held for sedation. 3. Patient is on Carafate 1 g twice a day. 4. Drisdol 50,000 units weekly. 5. Flagyl 500 mg IV q.8 hours. 6. Folic acid 1 mg daily. 7. K-Dur 20 mEq three times a day. 8. Lasix 40 mg IV q.12. 9. Lexapro 10 mg daily, to be held for sedation. 10. Lopressor 25 mg q.8 hours. 11. Cefepime 1 g IV q.8. 12. Protonix 40 mg IV q.12 hours. 13. Tamiflu 75 mg twice a day. 14. Tylenol 650 mg q.6 hours p.r.n. p.o. and suppository for temperature greater than or equal to 99.5. 15. Vitamin B12 1000 mcg IM daily. Chest x-ray - PA and lateral ordered. Oxygen. Patient is on a liquid diet. The patient has been ordered out of bed. FATOU stocks and SCDs. Physical therapy and occupational therapy. PLAN: At this time, the patient is to be continued with a close Cardiology followup, Gastroenterology followup, and Infectious Disease followup. Patient is awaiting and is being scheduled for gastrostomy tube placement by Interventional Radiology. We will await for further recommendation from Psychiatry, Dr. Leung. All of the above have been explained at length on multiple occasions to the patient's sister during the previous hospitalization and today. All the questions concerned, have been answered to her satisfaction. Dictated and electronically signed, not read. Nathan Sorensen MD MTDD
[2017-07-22] MEDS: metroNIDAZOLE IV 500 mg/100 ml 500 MG/100 ML BAG IVPB SCH ×3 (05:38→22:05)
[2017-07-22] MEDS: Sucralfate 1 gm/10 ml Oral Susp UD PO SCH ×2 (05:42→14:38)
[2017-07-22] MEDS: Cefepime 1gm in NS 100ml 1 GM/100 ML BAG IVPB SCH ×3 (06:11→22:06)
--- NOTE | 2017-07-22 06:20 | PN ---
DATE: 07/21/2017 SUBJECTIVE: This patient was seen and evaluated earlier today. ASSESSMENT AND PLAN: The patient has systemic inflammatory response syndrome with flu. Spiked fever. Esophageal stricture secondary to the extrinsic compression. The pathology of the esophageal biopsy negative for reactive changes only. Inflamed mucosa. We will coordinate with the interventional radiologist regarding the feeding tube placement. We will discuss with Dr. Sorensen regarding the timing. Dayron Toledo MD
[2017-07-22] MEDS: Potassium Chloride 20 mEq ER Tab PO SCH ×3 (11:02→18:29)
[2017-07-22] MEDS: Levalbuterol 0.63 MG/3 ML Inhal Soln UD IH SCH ×2 (13:17→19:23)
[2017-07-22] MEDS: Acetylcysteine 20% Inhal Soln (4ml) IH SCH ×2 (13:18→19:23)
--- NOTE | 2017-07-22 18:25 | CP.PCM.PN ---
Subjective - Date & Time of Evaluation Date of Evaluation: 07/22/17 Time of Evaluation: 10:20 - Subjective Subjective: Seen and examined at the bedside earlier today, chart review. Patient reporting having bowel movement no diarrhea or reports of overt GI bleeding. Denies nausea, vomiting, or abdominal pain. Tolerating oral intake. Denies fever or chills, shortness of breath or chest pain. Objective - Vital Signs/Intake and Output Vital Signs (last 24 hours): Temp Pulse Resp BP Pulse Ox 97.4 F L 85 18 104/61 94 L 07/22/17 10:00 07/22/17 14:52 07/22/17 10:00 07/22/17 14:52 07/22/17 10:00 Intake and Output: 07/22/17 07/22/17 06:59 18:59 Intake Total 360 Balance 360 - Medications Medications: Current Medications Acetaminophen (Tylenol 325mg Tab) 650 mg PO Q6H PRN; Protocol PRN Reason: Fever >99.5 F Acetaminophen (Tylenol 650 Mg Supp) 650 mg RC Q4H PRN; Protocol PRN Reason: fever>99.5 F Acetylcysteine (Acetylcysteine 20%) 4 ml IH [id number] JEFFERY Last Admin: 07/22/17 13:18 Dose: 4 ml Aripiprazole (Abilify) 5 mg PO QAM JEFFERY PRN Reason: Protocol Last Admin: 07/22/17 11:01 Dose: Not Given Cyanocobalamin (Vitamin B12 1000 Mcg/Ml Inj) 1,000 mcg IM DAILY JEFFERY PRN Reason: Protocol Stop: 07/27/17 10:00 Last Admin: 07/22/17 11:03 Dose: 1,000 mcg Ergocalciferol (Drisdol 50,000 Intl Units Cap) 1 cap PO Q7D JEFFERY PRN Reason: Protocol Last Admin: 07/20/17 18:38 Dose: 1 cap Escitalopram Oxalate (Lexapro) 10 mg PO DAILY JEFFERY Last Admin: 07/22/17 11:02 Dose: Not Given Folic Acid (Folic Acid) 1 mg PO DAILY JEFFERY PRN Reason: Protocol Last Admin: 07/22/17 11:02 Dose: 1 mg Furosemide (Lasix) 40 mg IVP 0600,1800 JEFFERY PRN Reason: Protocol Last Admin: 07/22/17 05:41 Dose: 40 mg Metronidazole (Flagyl) 500 mg in 100 mls @ 100 mls/hr IVPB Q8 JEFFERY PRN Reason: Protocol Last Admin: 07/22/17 14:45 Dose: 100 mls/hr Cefepime HCl (Maxipime 1gm) 1 gm in 100 mls @ 100 mls/hr IVPB Q8 JEFFERY PRN Reason: Protocol Last Admin: 07/22/17 14:46 Dose: 100 mls/hr Levalbuterol HCl (Xopenex) 0.63 mg IH [id number] [facility] Last Admin: 07/22/17 13:17 Dose: 0.63 mg Lorazepam (Ativan) 2 mg PO QID JEFFERY PRN Reason: Protocol Last Admin: 07/22/17 14:45 Dose: Not Given Metoprolol Tartrate (Lopressor) 25 mg PO 0600,1400,2200 JEFFERY PRN Reason: Protocol Last Admin: 07/22/17 14:52 Dose: 25 mg Oseltamivir Phosphate (Tamiflu Cap) 75 mg PO BID JEFFERY PRN Reason: Protocol Stop: 07/26/17 08:45 Last Admin: 07/22/17 11:03 Dose: 75 mg Pantoprazole Sodium (Protonix Inj) 40 mg IVP Q12 JEFFERY PRN Reason: Protocol Last Admin: 07/22/17 11:02 Dose: 40 mg Potassium Chloride (K-Dur 20 Meq Er Tab) 20 meq PO TID JEFFERY PRN Reason: Protocol Last Admin: 07/22/17 14:45 Dose: 20 meq Sucralfate (Carafate Oral Susp) 1 gm PO 0600,1600 JEFFERY PRN Reason: Protocol Last Admin: 07/22/17 05:42 Dose: 1 gm - Labs Labs: 07/21/17 06:45 07/21/17 06:45 - Constitutional Appears: No Acute Distress - Head Exam Head Exam: NORMOCEPHALIC - Eye Exam Eye Exam: Normal appearance. absent: Scleral icterus - ENT Exam ENT Exam: Mucous Membranes Moist - Neck Exam Neck Exam: Normal Inspection - Respiratory Exam Respiratory Exam: NORMAL BREATHING PATTERN. absent: Respiratory Distress - Cardiovascular Exam Cardiovascular Exam: +S1, +S2 - GI/Abdominal Exam GI & Abdominal Exam: Soft, Normal Bowel Sounds. absent: Guarding, Tenderness, Rebound - Extremities Exam Extremities Exam: Pedal Edema. absent: Calf Tenderness Additional comments: ilateral LE edema, appear slightly better - Neurological Exam Neurological Exam: Alert, Awake, Oriented x3 - Skin Skin Exam: Dry, Warm Assessment and Plan - Assessment and Plan (Free Text) Assessment: Assessment: Influenza Anemia, s/p blood transfusion Esophageal ulcers, S/P EGD found LA grade D esophagitis Esophageal strictureThomas secondary to extrinsic compression GERD Bipolar disorder Bilateral lower extremity edema, lower extremity Doppler negative Plan: Continue Protonix 40 every 12 On Carafate liquid clear liquid On Tamiflu On IV antibiotics Monitor H&H and for overt GI bleed monitor H/h for overt GI bleeding. cardiology FU G-tube when medically stable. Seen and discussed with Dr. Toledo.
--- NOTE | 2017-07-22 18:38 | CP.PCM.PN ---
Subjective - Date & Time of Evaluation Date of Evaluation: 07/22/17 Time of Evaluation: 11:30 - Subjective Subjective: Not in distress, afebrile. Objective - Vital Signs/Intake and Output Vital Signs (last 24 hours): Temp Pulse Resp BP Pulse Ox 98.4 F 80 18 110/73 94 L 07/22/17 06:00 07/22/17 06:00 07/22/17 06:00 07/22/17 06:00 07/22/17 06:00 Intake and Output: 07/22/17 07/22/17 06:59 18:59 Intake Total 360 Balance 360 - Medications Medications: Current Medications Acetaminophen (Tylenol 325mg Tab) 650 mg PO Q6H PRN; Protocol PRN Reason: Fever >99.5 F Acetaminophen (Tylenol 650 Mg Supp) 650 mg RC Q4H PRN; Protocol PRN Reason: fever>99.5 F Aripiprazole (Abilify) 5 mg PO QAM JEFFERY PRN Reason: Protocol Cyanocobalamin (Vitamin B12 1000 Mcg/Ml Inj) 1,000 mcg IM DAILY JEFFERY PRN Reason: Protocol Stop: 07/27/17 10:00 Last Admin: 07/21/17 10:36 Dose: 1,000 mcg Ergocalciferol (Drisdol 50,000 Intl Units Cap) 1 cap PO Q7D JEFFERY PRN Reason: Protocol Last Admin: 07/20/17 18:38 Dose: 1 cap Escitalopram Oxalate (Lexapro) 10 mg PO DAILY JEFFERY Folic Acid (Folic Acid) 1 mg PO DAILY JEFFERY PRN Reason: Protocol Last Admin: 07/21/17 10:35 Dose: 1 mg Furosemide (Lasix) 40 mg IVP 0600,1800 JEFFERY PRN Reason: Protocol Last Admin: 07/22/17 05:41 Dose: 40 mg Metronidazole (Flagyl) 500 mg in 100 mls @ 100 mls/hr IVPB Q8 JEFFERY PRN Reason: Protocol Last Admin: 07/22/17 05:38 Dose: 100 mls/hr Cefepime HCl (Maxipime 1gm) 1 gm in 100 mls @ 100 mls/hr IVPB Q8 JEFFERY PRN Reason: Protocol Last Admin: 07/22/17 06:11 Dose: 100 mls/hr Lorazepam (Ativan) 2 mg PO QID JEFFERY PRN Reason: Protocol Last Admin: 07/21/17 21:40 Dose: 2 mg Metoprolol Tartrate (Lopressor) 25 mg PO 0600,1400,2200 JEFFERY PRN Reason: Protocol Last Admin: 07/22/17 05:41 Dose: 25 mg Oseltamivir Phosphate (Tamiflu Cap) 75 mg PO BID JEFFERY PRN Reason: Protocol Stop: 07/26/17 08:45 Last Admin: 07/21/17 17:26 Dose: 75 mg Pantoprazole Sodium (Protonix Inj) 40 mg IVP Q12 JEFFERY PRN Reason: Protocol Last Admin: 07/21/17 21:45 Dose: 40 mg Potassium Chloride (K-Dur 20 Meq Er Tab) 20 meq PO TID JEFFERY PRN Reason: Protocol Last Admin: 07/21/17 17:26 Dose: 20 meq Sucralfate (Carafate Oral Susp) 1 gm PO 0600,1600 JEFFERY PRN Reason: Protocol Last Admin: 07/22/17 05:42 Dose: 1 gm - Labs Labs: 07/21/17 06:45 07/21/17 06:45 - Constitutional Appears: Non-toxic - Head Exam Head Exam: NORMAL INSPECTION - Respiratory Exam Respiratory Exam: Decreased Breath Sounds - Cardiovascular Exam Cardiovascular Exam: +S1, +S2 - GI/Abdominal Exam GI & Abdominal Exam: Soft. absent: Tenderness Assessment and Plan - Assessment and Plan (Free Text) Plan: Assessment Systemic viral illness with Influenza R/O bacterial sepsis morbid obesity with BMI 42 chronic CHF severe esophagitis chronic anemia S/P appendectomy developmental disability bipolar disorder anxiety cholelithiasis Plan continue Tamiflu day 2 to complete 5 days - rapid flu test is positive continue Cefepime and Flagyl pending final culture results will monitor clinically
--- NOTE | 2017-07-22 23:33 | PN ---
DATE: 07/22/2017 SUBJECTIVE: The patient is seen in room 304, bed 1. The patient is again seen lying in the bed. The patient was encouraged to sit up and to be out of bed to chair. The patient needed assistance from lying to sitting up. Overnight nurse's notes were reviewed. PHYSICAL EXAMINATION VITAL SIGNS: T-max is 98.4; pulse rate 78, 85, 80; blood pressure 110/73, 115/81, 113/76; respiration 18; O2 sat is 94%-95%-93%. HEAD: Normocephalic, atraumatic. EENT: Shows pinkish pale conjunctivae. Anicteric sclerae. No oropharyngeal lesion. No neck rigidity. Neck is short and supple. CHEST: Kyphosis. LUNGS: Shows positive upper lung rhonchi anteriorly. The patient is also complaining of nonproductive cough, difficulty to . CARDIOVASCULAR: Shows S1, S2, regular rhythm. Positive systolic murmur at left sternal border, left second intercostal space, right second intercostal space. ABDOMEN: Morbidly obese. No hepatosplenomegaly palpable. GENITALIA: Female. RECTAL: Deferred. EXTREMITY: Shows chronic nonpitting lymphedema of the lower extremity. MUSCULOSKELETAL: Shows a body mass index of 42.3. Gait examinations could not be tested. DIAGNOSTICS: None from today. Influenza serologies is positive for influenza A. IMPRESSION AND PLAN: 1. Deconditioning. 2. Gait dysfunction. 3. Cough. 4. Cardiomegaly. 5. Influenza A infection. 6. Leukopenia, anemia. 7. Morbid obesity with elevated body mass index of 42.3. 8. Severe esophagitis. 9. Systemic viral infection with influenza A. 10. Bipolar disorder. 11. Anxiety disorder. 12. History of anxiety, depression, bipolar disorder. 13. Iron-deficiency anemia. 15. Status post IV Venofer. 16. Vitamin B12 deficiency. 17. Hypovitaminosis D. 18. Depression. 19. Tachycardia. 20. Hypokalemia. 21. Left ventricle ejection fraction of 53%. 22. Right-sided diastolic congestive heart failure with elevated right ventricular systolic pressure of 56 mmHg and moderate pulmonary arterial hypertension. 23. Mildly dilated left ventricle. 24. Moderate mitral regurgitation with eccentrically directed regurgitant jet. 25. Mild tricuspid regurgitation. 26. Moderate pulmonary arterial hypertension. 1. Deconditioning. 2. Gait dysfunction. 3. High-grade fever of 102 degrees Fahrenheit. 4. Influenza A positive. 5. Hypertension. 6. Severe symptomatic anemia with symptoms of shortness of breath. 7. Leukopenia. 8. Borderline hypokalemia. 9. Morbid obesity. 10. Left ventricular ejection fraction of 53%. 11. Pulmonary hypertension with a right ventricular systolic pressure of 56 mmHg. 12. Moderately dilated left ventricle. 13. Mildly dilated left atrium. 14. Thickened aortic valve. 15. Moderate mitral regurgitation with eccentrically-directed regurgitant jet. 16. Mild tricuspid regurgitation. 17. Moderate pulmonary arterial hypertension. 18 Silver[place] grade D esophagitis and esophageal ulcer, extending from 24 cm level from incisors with Silver[place] grade C distal esophagitis and esophageal ulcers. 19. Mid-esophageal area moderate stenosis at 24 cm. 20. Hiatal hernia. 21. Enterogastritis. 22. Status post packed red blood cell transfusion. 23. History of anxiety and depression, question bipolar disorder. 24. Hypovitaminosis D. 25. Hypokalemia. 26. Right-sided diastolic congestive heart failure with pulmonary arterial hypertension. 27. Vitamin B12 deficiency. 28. Escherichia coli urinary tract infection. 29. Basilar atelectasis. 30. Cardiomegaly. 1. Questionable and possible systemic inflammatory response syndrome with high-grade fever of 101.9. 2. Tachycardia. 3. Hypo and hypertension. 4. Severe symptomatic microcytic anemia, status post packed red blood cell transfusion x4. 5. Elevated reticulocyte count of greater than 2.5. 6. Elevated D-dimer of greater than 535, etiology undetermined. 7. Hypokalemia. 8. Severe iron deficiency anemia. 9. Vitamin B12 deficiency. 10. Questionable and possible subclinical hyperthyroidism. 11. Hypovitaminosis D. 12. Morbid obesity with body mass index of 47. 13. Developmentally disabled. 14. Hyperbilirubinemia. 15. Status post esophagogastroduodenoscopy and a grade B esophagitis. 16. Questionable and possible left atrial enlargement, coughing, and extrinsic esophageal stenosis. 17. History of anxiety, depression, and bipolar disorder. 18. Left ventricular ejection fraction of 53%. 19. [id number] pulmonary arterial hypertension with right ventricular systolic pressure of 56 mmHg. 20. Mildly dilated left ventricle. 21. Mildly dilated left atrium. 22. Moderate mitral regurgitation with eccentrically located regurgitant jet . 23. Moderate mitral regurgitation with posteriorly directed jet. 24. Sinus tachycardia with nonspecific ST-T wave changes. 1. Severe symptomatic anemia with symptoms of shortness of breath, dyspnea on exertion. 2. Hypertension. 3. Tachycardia. 4. Morbid obesity. 5. Severe gait dysfunction. 6. Microcytic anemia. 7. Status post packed red blood cell transfusion x4. 8. Elevated reticulocyte count of greater than 2.25. 9. Elevated D-dimer, etiology undetermined. 10. Hypokalemia. 11. Iron deficiency. 12. Severe vitamin B12 deficiency. 13. Hypovitaminosis D. 14. Questionable and possible subclinical hyperthyroidism with elevated T4. 15. Folate deficiency. 16. Gait dysfunction. 17. Deconditioning. 18. Left ventricular ejection fraction of 53-63%. 19. Pulmonary hypertension with right ventricular systolic pressure of 56 mmHg. 20. Cholelithiasis. 21. Status post esophagogastroduodenoscopy. 22. Silverton grade D esophagitis extending from 24 cm level from incisors. 23. Silver[place] grade C distal third esophagitis. 24. Mid esophageal area moderate esophageal stenosis at 24 cm from incisors. 25. Hiatal hernia. 26. Gastritis. 27. Midesophageal stenosis. 28. Moderate to severe mitral regurgitation with severe left atrial enlargement. 1. Status post esophagogastroduodenoscopy. 2. Silverton grade D esophagitis extending from 24 cm level from the incisors. 3. Silver[place] grade C distal esophageal esophagitis. 4. A 5 cm hiatal hernia. 5. Gastric antral inflammation. 6. Gastritis. 7. Moderate esophageal stenosis at 24 cm from incisors to midesophageal area. 8. Tachycardia. 9. Hypertension. 10. Super morbid obesity. 11. Microcytic anemia. 12. Status post packed red blood cell transfusion x4. 13. Elevated reticulocyte count of greater than 2.25. 14. Elevated D-dimer, etiology undetermined. 15. Hypokalemia. 16. Hyperbilirubinemia. 17. Hypovitaminosis D. 18. Bilateral lower extremity nonpitting lymphedema. 19. Severe vitamin B12 deficiency with vitamin B12 level of 208. 20. Relative folate deficiency. 21. Trace right pleural effusion. 22. Moderate cardiomegaly. 23. Moderate-sized hiatal hernia. 24. Atelectasis and scarring. 25. Calcified cholelithiasis. 26. Degenerative joint disease of the lumbar spine. 27. Hips and proximal thighs subcutaneous tissue stranding, etiology undetermined. 28. Subcentimeter mesenteric lymphadenopathy, nonspecific 29. Heterogeneous thyroid gland without nodules. 30. Multiple cholelithiasis. 31. Sinus tachycardia. 32. Questionable old inferior wall myocardial infarction. 33. Mitral regurgitation with increasing left ventricular size. 1. Low-grade fever, etiology undetermined. 2. Severe symptomatic anemia, microcytic anemia with symptoms of shortness of breath, dyspnea on exertion and bilateral lower extremity swelling. 3. Status post 1 unit of packed red blood cells. 4. Tachycardia. 5. Microcytic anemia with granulocytosis. 6. Elevated reticulocyte count. 7. Elevated D-dimer of greater than 500, etiology unclear. 8. Severe iron deficiency. 9. Possible subclinical hyperthyroidism with elevated thyroxine level. 10. A+ blood type. 11. History of moderate mitral regurgitation. 12. History of mild pulmonary arterial hypertension. 13. Abnormal EKG with nonspecific ST changes. 14. Morbid obesity with elevated body mass index of 47. 15. Bibasilar atelectasis, scarring and intralobular septal thickening with bilateral pulmonary mosaic pattern. 16. Cardiomegaly. 17. Coronary artery calcification. 18. Moderate-sized hiatal hernia. 19. Calcified cholelithiasis. 20. Elevated right hemidiaphragm. 21. Hypertensive cardiovascular disease. 22. 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 1. Severe symptomatic anemia with symptoms of bilateral lower extremity venous stasis, dyspnea on exertion and shortness of breath. 2. Sinus tachycardia. 3. Severe symptomatic anemia, microcytic anemia. 4. Granulocytosis. 5. Elevated reticulocyte count. 6. Elevated D-dimer. 7. Iron-deficiency anemia. 8. Questionable hyperthyroidism with elevated T4 of 12.6. 9. Moderate cardiomegaly. 10. Bibasilar atelectasis scarring with bilateral pulmonary mosaic pattern of the lung parenchyma. 11. Mild interlobular septal thickening. 12. Moderate hiatal hernia. 13. Healing refracture. 14. Calcified cholelithiasis. 15. Elevated right hemidiaphragm. 16. Left ventricular hypertrophy and hypertensive cardiovascular disease. 17. Age indeterminate inferior infarct. 18. Questionable hypertension. PLAN AT THIS TIME: The patient has been ordered repeat labs. CONSULTATIONS: 1. Cardiology. 2. Gastroenterology. 3. Infectious Disease. 4. Interventional Radiology. 5. Psychiatry. CURRENT MEDICATIONS: 1. Tylenol 650 q. 6 p.r.n. p.o. and suppository. 2. Mucomyst started at 20% 4 ML nebulizer treatment. 3. Abilify 5 mg p.o. a.m., hold for sedation. 4. Vitamin B12 1000 mcg IM daily. 5. Drisdol 50,000 units weekly. 6. Lexapro 10 mg daily. 7. . 8. Folic acid 1 mg daily. 9. Lasix 40 mg IV q. 12. 10. Xopenex nebulizer 0.63 mg every 6 hours. 11. Ativan 2 mg q.i.d. 12. Cefepime 1 g IV q. 8. 13. Lopressor 25 mg q. 8 hours. 14. Tamiflu 75 mg twice a day. 15. Protonix 40 mg IV q. 12. 16. K-Dur 20 mEq 3 times a day. 17. Carafate 1 g twice a day. Chest PT ordered. Oxygen ordered. The patient is on liquid diet. We are awaiting for further evaluation by Dr. Hugo Underwood regarding the PEG tube placement. The patient has been ordered FATOU jameson, out of bed occupational therapy, physical therapy ordered. Dictated and electronically signed, not read. Nathan Sorensen MD MTDD
[2017-07-23] MEDS: Acetylcysteine 20% Inhal Soln (4ml) IH SCH ×4 (01:48→20:31)
[2017-07-23] MEDS: Levalbuterol 0.63 MG/3 ML Inhal Soln UD IH SCH ×4 (01:48→20:31)
[2017-07-23] MEDS: Sucralfate 1 gm/10 ml Oral Susp UD PO SCH ×2 (05:10→17:51)
[2017-07-23] MEDS: metroNIDAZOLE IV 500 mg/100 ml 500 MG/100 ML BAG IVPB SCH ×3 (05:10→22:47)
[2017-07-23] MEDS: Cefepime 1gm in NS 100ml 1 GM/100 ML BAG IVPB SCH ×3 (05:13→22:48)
[2017-07-23] MEDS ORDERED: Pantoprazole 40mg/100mL NS 40 MG/100 ML BAG IV SCH (06:00)
[2017-07-23 06:50] LABS: BASO # 0.02 K/mm3 (0.0-2.0); BASO % 0.5 % (0.0-3.0); EOS # 0.1 (0.0-0.7); EOS % 2.3 % (1.5-5.0); GRAN # 2.14 (1.4-6.5); GRAN % 55.8 % (50.0-68.0); LYMPH % 27.1 % (22.0-35.0); MEAN CELL VOLUME 75.8 fl (80.0-105.0); MEAN CORPUSCULAR HGB CONC 27.6 g/dl (31.0-37.0); MEAN PLATELET VOLUME 9.4 fl (7.0-11.0); MONO # 0.6 (0.1-0.6); MONO % 14.3 % (1.0-6.0); RBC 5.25 10^6/uL (3.5-6.1); RED CELL DISTRIBUTION WIDTH 29.5 % (11.5-14.5); WHITE BLOOD COUNT 3.8 10^3/ul (4.5-11.0)
[2017-07-23 06:51] LABS: ALB/GLOB RATIO 1.2 (1.1-1.8); ALBUMIN 3.6 g/dL (3.0-4.8); ALT/SGPT 16 U/L (7-56); AST/SGOT 21 U/L (14-36); BILIRUBIN,DIRECT 0.4 mg/dL (0.0-0.4); BLOOD UREA NITROGEN 15 mg/dL (7-21); CALCIUM 8.8 mg/dL (8.4-10.5); GFR AFRICAN-AMERICAN > 60; GFR NON-AFRICAN AMERICAN > 60
[2017-07-23] MEDS: Potassium Chloride 20 mEq ER Tab PO SCH ×4 (09:45→22:48)
[2017-07-23] MEDS ORDERED: Potassium Chloride 20 mEq/15 ml LIQ UD PO STA (10:07)
--- NOTE | 2017-07-23 12:12 | CP.PCM.PN ---
Subjective - Date & Time of Evaluation Date of Evaluation: 07/23/17 Time of Evaluation: 10:55 - Subjective Subjective: Comfortable on a chair, no fevers, not in distress. Objective - Vital Signs/Intake and Output Vital Signs (last 24 hours): Temp Pulse Resp BP Pulse Ox 98 F 82 20 111/68 96 07/22/17 18:35 07/22/17 22:06 07/22/17 18:35 07/23/17 05:13 07/22/17 18:35 Intake and Output: 07/23/17 07/23/17 06:59 18:59 Intake Total 800 Balance 800 - Medications Medications: Current Medications Acetaminophen (Tylenol 325mg Tab) 650 mg PO Q6H PRN; Protocol PRN Reason: Fever >99.5 F Acetaminophen (Tylenol 650 Mg Supp) 650 mg RC Q4H PRN; Protocol PRN Reason: fever>99.5 F Acetylcysteine (Acetylcysteine 20%) 4 ml IH [id number] JEFFERY Last Admin: 07/23/17 07:24 Dose: 4 ml Aripiprazole (Abilify) 5 mg PO QAM JEFFERY PRN Reason: Protocol Last Admin: 07/23/17 09:46 Dose: 5 mg Cyanocobalamin (Vitamin B12 1000 Mcg/Ml Inj) 1,000 mcg IM DAILY JEFFERY PRN Reason: Protocol Stop: 07/27/17 10:00 Last Admin: 07/23/17 09:47 Dose: 1,000 mcg Ergocalciferol (Drisdol 50,000 Intl Units Cap) 1 cap PO Q7D JEFFERY PRN Reason: Protocol Last Admin: 07/20/17 18:38 Dose: 1 cap Escitalopram Oxalate (Lexapro) 10 mg PO DAILY JEFFERY Last Admin: 07/23/17 09:45 Dose: 10 mg Folic Acid (Folic Acid) 1 mg PO DAILY JEFFERY PRN Reason: Protocol Last Admin: 07/23/17 09:46 Dose: 1 mg Furosemide (Lasix) 40 mg IVP 0600,1800 JEFFERY PRN Reason: Protocol Last Admin: 07/23/17 05:13 Dose: 40 mg Metronidazole (Flagyl) 500 mg in 100 mls @ 100 mls/hr IVPB Q8 JEFFERY PRN Reason: Protocol Last Admin: 07/23/17 05:10 Dose: 100 mls/hr Cefepime HCl (Maxipime 1gm) 1 gm in 100 mls @ 100 mls/hr IVPB Q8 JEFFERY PRN Reason: Protocol Last Admin: 07/23/17 05:13 Dose: 100 mls/hr Potassium Chloride (Potassium Chloride 20 Meq/100 Ml) 20 meq in 100 mls @ 50 mls/hr IVPB Q2H [facility] Stop: 07/23/17 11:14 Last Admin: 07/23/17 09:47 Dose: 50 mls/hr Levalbuterol HCl (Xopenex) 0.63 mg IH [id number] [facility] Last Admin: 07/23/17 07:24 Dose: 0.63 mg Lorazepam (Ativan) 2 mg PO TID JEFFERY PRN Reason: Protocol Last Admin: 07/23/17 09:46 Dose: 2 mg Metoprolol Tartrate (Lopressor) 25 mg PO 0600,1400,2200 [facility] PRN Reason: Protocol Last Admin: 07/23/17 05:13 Dose: Not Given Oseltamivir Phosphate (Tamiflu Cap) 75 mg PO BID JEFFERY PRN Reason: Protocol Stop: 07/26/17 08:45 Last Admin: 07/23/17 09:46 Dose: 75 mg Pantoprazole Sodium (Protonix Inj) 40 mg IVPB 0600,1800 JEFFERY PRN Reason: Protocol Last Admin: 07/23/17 06:00 Dose: 40 mg Potassium Chloride (K-Dur 20 Meq Er Tab) 20 meq PO QID [facility] Last Admin: 07/23/17 09:45 Dose: 20 meq Sucralfate (Carafate Oral Susp) 1 gm PO 0600,1600 JEFFERY PRN Reason: Protocol Last Admin: 07/23/17 05:10 Dose: 1 gm - Labs Labs: 07/23/17 05:40 07/23/17 05:40 - Constitutional Appears: Chronically Ill - Head Exam Head Exam: NORMAL INSPECTION - Neck Exam Neck Exam: absent: Meningismus - Respiratory Exam Respiratory Exam: Decreased Breath Sounds - Cardiovascular Exam Cardiovascular Exam: +S1, +S2 - GI/Abdominal Exam GI & Abdominal Exam: Soft. absent: Tenderness Assessment and Plan - Assessment and Plan (Free Text) Plan: Assessment Systemic viral illness with Influenza R/O bacterial sepsis morbid obesity with BMI 42 chronic CHF severe esophagitis chronic anemia S/P appendectomy developmental disability bipolar disorder anxiety cholelithiasis Plan continue Tamiflu day 3 to complete 5 days - rapid flu test is positive continue Cefepime and Flagyl pending final culture results will continue to monitor clinically
--- NOTE | 2017-07-23 12:52 | PN ---
DATE: 07/23/2017 CARDIOLOGY FOLLOWUP SUBJECTIVE: The patient is comfortable in a chair without shortness of breath. PHYSICAL EXAMINATION: VITAL SIGNS: Blood pressure is 111/68, heart rate in the 80s. NECK: Negative JVD. LUNGS: Without rales. HEART: S1 and S2 with a 2/6 systolic ejection murmur. EXTREMITIES: Decreasing edema. LABORATORY DATA: Hemoglobin is 11. Chemistries: Potassium is 3.3. IMPRESSION: 1. Congestive heart failure which is now resolved. 2. Mitral regurgitation. 3. Hypokalemia. 4. Improved pedal edema. 5. Anemia which is stable. 6. Upper gastrointestinal bleed. Given these findings, the patient is clinically stable at this time. Waiting for 4 to 6 weeks before considering [facility] to evaluate the mitral valve for repair. Hugo Lockwood MD
--- NOTE | 2017-07-23 13:23 | CP.PCM.PN ---
Subjective - Date & Time of Evaluation Date of Evaluation: 07/23/17 Time of Evaluation: 13:19 - Subjective Subjective: Patient seen and examined at bedside. Patient with no acute events overnight. Patient with low potassium, repleted this morning. Patient with no new complaints this morning. Denies chest pain, shortness of breath, nausea, vomiting, diarrhea, fever, chills. Objective - Vital Signs/Intake and Output Vital Signs (last 24 hours): Temp Pulse Resp BP Pulse Ox 98 F 82 20 111/68 96 07/22/17 18:35 07/22/17 22:06 07/22/17 18:35 07/23/17 05:13 07/22/17 18:35 Intake and Output: 07/23/17 07/23/17 06:59 18:59 Intake Total 800 Balance 800 - Medications Medications: Current Medications Acetaminophen (Tylenol 325mg Tab) 650 mg PO Q6H PRN; Protocol PRN Reason: Fever >99.5 F Acetaminophen (Tylenol 650 Mg Supp) 650 mg RC Q4H PRN; Protocol PRN Reason: fever>99.5 F Acetylcysteine (Acetylcysteine 20%) 4 ml IH [id number] JEFFERY Last Admin: 07/23/17 07:24 Dose: 4 ml Aripiprazole (Abilify) 5 mg PO QAM JEFFERY PRN Reason: Protocol Last Admin: 07/23/17 09:46 Dose: 5 mg Cyanocobalamin (Vitamin B12 1000 Mcg/Ml Inj) 1,000 mcg IM DAILY JEFFERY PRN Reason: Protocol Stop: 07/27/17 10:00 Last Admin: 07/23/17 09:47 Dose: 1,000 mcg Ergocalciferol (Drisdol 50,000 Intl Units Cap) 1 cap PO Q7D JEFFERY PRN Reason: Protocol Last Admin: 07/20/17 18:38 Dose: 1 cap Escitalopram Oxalate (Lexapro) 10 mg PO DAILY JEFFERY Last Admin: 07/23/17 09:45 Dose: 10 mg Folic Acid (Folic Acid) 1 mg PO DAILY JEFFERY PRN Reason: Protocol Last Admin: 07/23/17 09:46 Dose: 1 mg Furosemide (Lasix) 40 mg IVP 0600,1800 JEFFERY PRN Reason: Protocol Last Admin: 07/23/17 05:13 Dose: 40 mg Metronidazole (Flagyl) 500 mg in 100 mls @ 100 mls/hr IVPB Q8 JEFFERY PRN Reason: Protocol Last Admin: 07/23/17 05:10 Dose: 100 mls/hr Cefepime HCl (Maxipime 1gm) 1 gm in 100 mls @ 100 mls/hr IVPB Q8 JEFFERY PRN Reason: Protocol Last Admin: 07/23/17 05:13 Dose: 100 mls/hr Potassium Chloride (Potassium Chloride 10 Meq/100 Ml) 10 meq in 100 mls @ 50 mls/hr IVPB Q2H JEFFERY Stop: 07/23/17 14:44 Last Admin: 07/23/17 11:57 Dose: 50 mls/hr Levalbuterol HCl (Xopenex) 0.63 mg IH [id number] JEFFERY Last Admin: 07/23/17 07:24 Dose: 0.63 mg Lorazepam (Ativan) 2 mg PO TID JEFFERY PRN Reason: Protocol Last Admin: 07/23/17 09:46 Dose: 2 mg Metoprolol Tartrate (Lopressor) 25 mg PO 0600,1400,2200 JEFFERY PRN Reason: Protocol Last Admin: 07/23/17 05:13 Dose: Not Given Ondansetron HCl (Zofran Inj) 4 mg IVP Q4H PRN PRN Reason: Nausea/Vomiting Last Admin: 07/23/17 11:57 Dose: 4 mg Oseltamivir Phosphate (Tamiflu Cap) 75 mg PO BID JEFFERY PRN Reason: Protocol Stop: 07/26/17 08:45 Last Admin: 07/23/17 09:46 Dose: 75 mg Pantoprazole Sodium (Protonix Inj) 40 mg IVPB 0600,1800 JEFFERY PRN Reason: Protocol Last Admin: 07/23/17 06:00 Dose: 40 mg Potassium Chloride (K-Dur 20 Meq Er Tab) 20 meq PO QID JEFFERY Last Admin: 07/23/17 09:45 Dose: 20 meq Sucralfate (Carafate Oral Susp) 1 gm PO 0600,1600 JEFFERY PRN Reason: Protocol Last Admin: 07/23/17 05:10 Dose: 1 gm - Labs Labs: 07/23/17 05:40 07/23/17 05:40 - Constitutional Appears: Non-toxic, No Acute Distress - Head Exam Head Exam: ATRAUMATIC, NORMAL INSPECTION, NORMOCEPHALIC - ENT Exam ENT Exam: Mucous Membranes Moist - Respiratory Exam Respiratory Exam: Clear to Ausculation Bilateral, NORMAL BREATHING PATTERN - Cardiovascular Exam Cardiovascular Exam: RRR, +S1, +S2 - GI/Abdominal Exam GI & Abdominal Exam: Soft, Normal Bowel Sounds. absent: Tenderness - Extremities Exam Extremities Exam: Pedal Edema (trace b/l) - Neurological Exam Neurological Exam: Alert, Awake, Oriented x3 - Psychiatric Exam Psychiatric exam: Normal Affect, Normal Mood - Skin Skin Exam: Intact, Normal Color, Warm Assessment and Plan - Assessment and Plan (Free Text) Plan: 52 year old female with past medical history of morbid obesity, CHF, severe esophagitis, symptomatic anemia, developmental disability, bipolar disorder, anxiety, and cholelithiasis presents with esophagitis and ulceration secondary to enlarging left atrium in the setting of decompensated CHF. Patient in the TCU , improving on liquid diet. Patient will have PEG tube placed by IR and GI. Patient anemia stable at this time. Patient will be continued on current medical regimen at this time. Will continue to monitor closely and keep patient on same diet. Alban, PGY-2
--- NOTE | 2017-07-23 13:34 | CP.PCM.PN ---
Subjective - Date & Time of Evaluation Date of Evaluation: 07/23/17 Time of Evaluation: 10:40 - Subjective Subjective: Seen and examined at the bedside earlier today, chart reviewed. Patient denies nausea, vomiting, or abdominal pain. Last BM was yesterday, denies diarrhea. No new complaints. Tolerating clear liquid diet. Objective - Vital Signs/Intake and Output Vital Signs (last 24 hours): Temp Pulse Resp BP Pulse Ox 98 F 82 20 111/68 96 07/22/17 18:35 07/22/17 22:06 07/22/17 18:35 07/23/17 05:13 07/22/17 18:35 Intake and Output: 07/23/17 07/23/17 06:59 18:59 Intake Total 800 Balance 800 - Medications Medications: Current Medications Acetaminophen (Tylenol 325mg Tab) 650 mg PO Q6H PRN; Protocol PRN Reason: Fever >99.5 F Acetaminophen (Tylenol 650 Mg Supp) 650 mg RC Q4H PRN; Protocol PRN Reason: fever>99.5 F Acetylcysteine (Acetylcysteine 20%) 4 ml IH [id number] JEFFERY Last Admin: 07/23/17 07:24 Dose: 4 ml Aripiprazole (Abilify) 5 mg PO QAM JEFFERY PRN Reason: Protocol Last Admin: 07/23/17 09:46 Dose: 5 mg Cyanocobalamin (Vitamin B12 1000 Mcg/Ml Inj) 1,000 mcg IM DAILY JEFFERY PRN Reason: Protocol Stop: 07/27/17 10:00 Last Admin: 07/23/17 09:47 Dose: 1,000 mcg Ergocalciferol (Drisdol 50,000 Intl Units Cap) 1 cap PO Q7D JEFFERY PRN Reason: Protocol Last Admin: 07/20/17 18:38 Dose: 1 cap Escitalopram Oxalate (Lexapro) 10 mg PO DAILY JEFFERY Last Admin: 07/23/17 09:45 Dose: 10 mg Folic Acid (Folic Acid) 1 mg PO DAILY JEFFERY PRN Reason: Protocol Last Admin: 07/23/17 09:46 Dose: 1 mg Furosemide (Lasix) 40 mg IVP 0600,1800 JEFFERY PRN Reason: Protocol Last Admin: 07/23/17 05:13 Dose: 40 mg Metronidazole (Flagyl) 500 mg in 100 mls @ 100 mls/hr IVPB Q8 JEFFERY PRN Reason: Protocol Last Admin: 07/23/17 05:10 Dose: 100 mls/hr Cefepime HCl (Maxipime 1gm) 1 gm in 100 mls @ 100 mls/hr IVPB Q8 JEFFERY PRN Reason: Protocol Last Admin: 07/23/17 05:13 Dose: 100 mls/hr Potassium Chloride (Potassium Chloride 10 Meq/100 Ml) 10 meq in 100 mls @ 50 mls/hr IVPB Q2H JEFFERY Stop: 07/23/17 14:44 Last Admin: 07/23/17 11:57 Dose: 50 mls/hr Levalbuterol HCl (Xopenex) 0.63 mg IH [id number] JEFFERY Last Admin: 07/23/17 07:24 Dose: 0.63 mg Lorazepam (Ativan) 2 mg PO TID JEFFERY PRN Reason: Protocol Last Admin: 07/23/17 09:46 Dose: 2 mg Metoprolol Tartrate (Lopressor) 25 mg PO 0600,1400,2200 JEFFERY PRN Reason: Protocol Last Admin: 07/23/17 05:13 Dose: Not Given Ondansetron HCl (Zofran Inj) 4 mg IVP Q4H PRN PRN Reason: Nausea/Vomiting Last Admin: 07/23/17 11:57 Dose: 4 mg Oseltamivir Phosphate (Tamiflu Cap) 75 mg PO BID JEFFERY PRN Reason: Protocol Stop: 07/26/17 08:45 Last Admin: 07/23/17 09:46 Dose: 75 mg Pantoprazole Sodium (Protonix Inj) 40 mg IVPB 0600,1800 JEFFERY PRN Reason: Protocol Last Admin: 07/23/17 06:00 Dose: 40 mg Potassium Chloride (K-Dur 20 Meq Er Tab) 20 meq PO QID [facility] Last Admin: 07/23/17 09:45 Dose: 20 meq Sucralfate (Carafate Oral Susp) 1 gm PO 0600,1600 JEFFERY PRN Reason: Protocol Last Admin: 07/23/17 05:10 Dose: 1 gm - Labs Labs: 07/23/17 05:40 07/23/17 05:40 - Constitutional Appears: No Acute Distress - Head Exam Head Exam: NORMOCEPHALIC - Eye Exam Eye Exam: Normal appearance. absent: Scleral icterus - ENT Exam ENT Exam: Mucous Membranes Moist - Neck Exam Neck Exam: Normal Inspection - Respiratory Exam Respiratory Exam: NORMAL BREATHING PATTERN. absent: Respiratory Distress - Cardiovascular Exam Cardiovascular Exam: +S1, +S2 - GI/Abdominal Exam GI & Abdominal Exam: Soft, Normal Bowel Sounds. absent: Guarding, Tenderness, Rebound - Extremities Exam Extremities Exam: absent: Calf Tenderness - Neurological Exam Neurological Exam: Awake, Oriented x3 - Skin Skin Exam: Dry, Warm Assessment and Plan - Assessment and Plan (Free Text) Assessment: Assessment: Influenza Anemia, s/p blood transfusion Esophageal ulcers, S/P EGD found LA grade D esophagitis Esophageal strictureThomas secondary to extrinsic compression GERD Bipolar disorder Bilateral lower extremity edema, lower extremity Doppler negative Plan: Continue Protonix 40 every 12 On Carafate liquid clear liquid On Tamiflu On IV antibiotics Monitor H&H and for overt GI bleed monitor H/h for overt GI bleeding. cardiology FU G-tube when medically stable. Seen and discussed with Dr. Toledo.
[2017-07-23] MEDS ORDERED: Potassium Chloride 20 mEq ER Tab PO SCH (18:00)
--- NOTE | 2017-07-23 22:21 | CON ---
DATE: 07/23/2017 PRESENTATION: Patient is a 52-year-old female, overweight, seated at bedside. She is on fall precautions. Patient was originally admitted to hospital on 07/15/2017, complaining of knee pain. She additionally has issues with edema in the leg. It had been worsening over the previous two weeks. Psychiatric consult today was ordered due to concerns with patient being too sedated on her current medication regime. Patient is a 52-year-old, developmentally-delayed female. She is able to answer my questions. She indicates that her sister, Erika Centeno, is her power of commercial real estate attorney, but she lives independently in an apartment. Her sisters are close to her; she has two of them. She does all her care of the apartment, cooking, cleaning, cloth washing, and ADL's independently; however, she is unable to handle her own money, so her sisters help with her money management, pay her rent, and take her shopping. They are very involved with her and patient has a very good relationship with them. She indicates that she goes to [employer] camp everyday. She says that it is all year round, it appears to be some sort of a day treatment program here in [place]. She sees a doctor there. She does not remember his name. She has been seeing him for the last year and her current medications are Abilify 5 mg one daily, Lexapro 10 mg one daily, and Ativan 2 mg one p.o. q.i.d. This was cut down to Ativan 2 mg one p.o. t.i.d. due to concerns that patient is sedated. Patient denies any side effects. Her AIMS exam today was negative. She is unable to tell me her pharmacy, so I will try to follow up with her sister. She denies any psychiatric hospitalizations, history of suicide attempts, and is not sure why she has seen a psychiatrist in the past, but indicates that the medication is helpful to her. She is unable to discuss with me any medical problems she has. She is unsure what they might be, but states her sister knows. She denies any history of legal problems, has never served in the , has no access to guns. She says nobody in her family has any mental health issues and she herself has no personal history of drug or alcohol abuse. Patient grew up in [place]. She is number 3 of 3 siblings, all of them girls. She is close, as an adult, with both of her sisters and one is her POA. Her parents are now . She indicates that she had a really good childhood. She loved going to school. She did okay on school. She had special education services all the way through. Indicates, she has never worked or had any job training, but she does go to this camp; this seems to be through the [facility] [employer], all year round; she enjoys it and feels that it is a good program. VITAL SIGNS: Current vital signs include temperature of 98, pulse rate of 81, blood pressure of 117/76, respiratory rate of 20, and an O2 sat of 96%. Her psychiatric medications have all been ordered already. The only change made was to decrease the Ativan 2 mg q.i.d. to Ativan 2 mg t.i.d. to help with the issue of the patient's sedation. I did go over this with the patient and the reason behind it and she was agreeable to this change. MENTAL STATUS EXAMINATION: Patient is alert and oriented x3. Her eye contact is good. Her behavior is co-operative. Her speech rate and volume are within normal limits. Mood is blunted. Her affect is constricted. Thoughts are goal directed, concrete, and simplistic. She denies being suicidal or homicidal. Denies the presence of hallucinations, delusions, or paranoia. Her concentration and her focus, she indicates are normal. Her memory, both short and child care coordinator, appears to be adequate. Her appetite and her sleep, she indicates are normal. She does not feel that she is depressed or anxious at this time, nor does she feel she is having any psychiatric difficulties. DIAGNOSTIC IMPRESSION: Depressive disorder with psychotic features, in full remission. PLAN: Patient denies being suicidal or homicidal and appears in no imminent danger of hurting of herself or others. According to the nursing staff and nursing notes, there have been no behavioral issues while on the unit. Patient is cooperative with her treatment and appeared to have a good supportive family system. I will try to reach her sister to clarify collateral information. We will follow this patient to see how she does with the medication decrease. Thank you for the consultation. Rose Mary Perez APN Sindhu Leung MD MILLIE
--- NOTE | 2017-07-24 01:21 | PN ---
DATE: 07/23/2017 SUBJECTIVE: The patient is seen in room 304, bed 1. [facility] Overnight nurse's notes were reviewed. The patient is sleeping well, overnight nurse's notes. The patient complaining of cough and has difficulty expectoration. The patient denies any rectal bleeding. Denies any chest pain. The patient is alert, awake, responsive, in no distress. PHYSICAL EXAMINATION: VITAL SIGNS: T-max 97.8; heart rate in the last 24 hours 78, 80, 85, 81, 82, 79; respiration 18; blood pressure 117/76, 111/68, 118/72. O2 sat 95%. Output not documented. HEENT: Head examination normocephalic, atraumatic. HEENT examination shows pink conjunctivae. Anicteric sclerae. No oropharyngeal lesion. No neck rigidity. CHEST: Kyphosis. CARDIOVASCULAR: S1, S2. Positive systolic murmur, left sternal border, left second intercostal space, right second intercostal space, left second intercostal space. ABDOMEN: Morbidly obese. Positive bowel sound. No hepatosplenomegaly appreciated. No guarding. No rigidity. No rebound tenderness. GENITALIA: Female. RECTAL: Deferred. EXTREMITIES: Lower extremity shows chronic nonpitting swelling and nonpitting lymphedema noted. MUSCULOSKELETAL: Shows a body mass index of 43. NEUROLOGIC: The patient is alert, awake, responsive, is able to move upper and lower extremity without assistance. Gait examination not tested. DIAGNOSTICS: On 07/23/2017, WBC 3.8, hemoglobin and hematocrit 11 and 39.8, MCV 75, platelet 278. Chemistry is abnormal for potassium of 3.3. Rest of the chemistries normal. IMPRESSION AND PLAN: 1. Deconditioning. 2. Gait dysfunction. 3. Lyon grade D esophageal ulcer and esophagitis. 4. Hiatal hernia. 5. Influenza A. 6. Severe symptomatic anemia with symptoms of shortness of breath and lower extremity swelling. 7. Status post packed red blood cell transfusion. 8. Midesophageal stenosis and stricture secondary to extensive compression, probably secondary to the left ventricular enlargement. 9. Bipolar disorder. 10. Influenza A. 11. Status post high-grade fever. 12. Systemic viral illness with influenza or influenza A systemic viral illness. 13. Morbid obesity with elevated body mass index of 43. 14. Severe esophagitis. 15. Bipolar disorder. 16. Hypertension. 17. Tachycardia. 18. Leukopenia and microcytic anemia. 19. Hypokalemia. 20. Gait dysfunction. 21. Deconditioning. 23. Mitral regurgitation. 24. Left ventricle ejection fraction of 53%. 25. Pulmonary arterial hypertension with right ventricular systolic pressure of 56 mmHg. 26. Mildly dilated left ventricle. 27. Mildly dilated left atrium. 28. Thickened aortic valve and thickened mitral valve. 29. Moderate mitral regurgitation. 30. Moderate pulmonary arterial hypertension. 31. Hypokalemia. 1. Deconditioning. 2. Gait dysfunction. 3. Cough. 4. Cardiomegaly. 5. Influenza A infection. 6. Leukopenia, anemia. 7. Morbid obesity with elevated body mass index of 42.3. 8. Severe esophagitis. 9. Systemic viral infection with influenza A. 10. Bipolar disorder. 11. Anxiety disorder. 12. History of anxiety, depression, bipolar disorder. 13. Iron-deficiency anemia. 15. Status post IV Venofer. 16. Vitamin B12 deficiency. 17. Hypovitaminosis D. 18. Depression. 19. Tachycardia. 20. Hypokalemia. 21. Left ventricle ejection fraction of 53%. 22. Right-sided diastolic congestive heart failure with elevated right ventricular systolic pressure of 56 mmHg and moderate pulmonary arterial hypertension. 23. Mildly dilated left ventricle. 24. Moderate mitral regurgitation with eccentrically directed regurgitant jet. 25. Mild tricuspid regurgitation. 26. Moderate pulmonary arterial hypertension. 1. Deconditioning. 2. Gait dysfunction. 3. High-grade fever of 102 degrees Fahrenheit. 4. Influenza A positive. 5. Hypertension. 6. Severe symptomatic anemia with symptoms of shortness of breath. 7. Leukopenia. 8. Borderline hypokalemia. 9. Morbid obesity. 10. Left ventricular ejection fraction of 53%. 11. Pulmonary hypertension with a right ventricular systolic pressure of 56 mmHg. 12. Moderately dilated left ventricle. 13. Mildly dilated left atrium. 14. Thickened aortic valve. 15. Moderate mitral regurgitation with eccentrically-directed regurgitant jet. 16. Mild tricuspid regurgitation. 17. Moderate pulmonary arterial hypertension. 18 Lyon grade D esophagitis and esophageal ulcer, extending from 24 cm level from incisors with Lyon grade C distal esophagitis and esophageal ulcers. 19. Mid-esophageal area moderate stenosis at 24 cm. 20. Hiatal hernia. 21. Enterogastritis. 22. Status post packed red blood cell transfusion. 23. History of anxiety and depression, question bipolar disorder. 24. Hypovitaminosis D. 25. Hypokalemia. 26. Right-sided diastolic congestive heart failure with pulmonary arterial hypertension. 27. Vitamin B12 deficiency. 28. Escherichia coli urinary tract infection. 29. Basilar atelectasis. 30. Cardiomegaly. 1. Questionable and possible systemic inflammatory response syndrome with high-grade fever of 101.9. 2. Tachycardia. 3. Hypo and hypertension. 4. Severe symptomatic microcytic anemia, status post packed red blood cell transfusion x4. 5. Elevated reticulocyte count of greater than 2.5. 6. Elevated D-dimer of greater than 535, etiology undetermined. 7. Hypokalemia. 8. Severe iron deficiency anemia. 9. Vitamin B12 deficiency. 10. Questionable and possible subclinical hyperthyroidism. 11. Hypovitaminosis D. 12. Morbid obesity with body mass index of 47. 13. Developmentally disabled. 14. Hyperbilirubinemia. 15. Status post esophagogastroduodenoscopy and a grade B esophagitis. 16. Questionable and possible left atrial enlargement, coughing, and extrinsic esophageal stenosis. 17. History of anxiety, depression, and bipolar disorder. 18. Left ventricular ejection fraction of 53%. 19. [id number] pulmonary arterial hypertension with right ventricular systolic pressure of 56 mmHg. 20. Mildly dilated left ventricle. 21. Mildly dilated left atrium. 22. Moderate mitral regurgitation with eccentrically located regurgitant jet . 23. Moderate mitral regurgitation with posteriorly directed jet. 24. Sinus tachycardia with nonspecific ST-T wave changes. 1. Severe symptomatic anemia with symptoms of shortness of breath, dyspnea on exertion. 2. Hypertension. 3. Tachycardia. 4. Morbid obesity. 5. Severe gait dysfunction. 6. Microcytic anemia. 7. Status post packed red blood cell transfusion x4. 8. Elevated reticulocyte count of greater than 2.25. 9. Elevated D-dimer, etiology undetermined. 10. Hypokalemia. 11. Iron deficiency. 12. Severe vitamin B12 deficiency. 13. Hypovitaminosis D. 14. Questionable and possible subclinical hyperthyroidism with elevated T4. 15. Folate deficiency. 16. Gait dysfunction. 17. Deconditioning. 18. Left ventricular ejection fraction of 53-63%. 19. Pulmonary hypertension with right ventricular systolic pressure of 56 mmHg. 20. Cholelithiasis. 21. Status post esophagogastroduodenoscopy. 22. Lyon grade D esophagitis extending from 24 cm level from incisors. 23. Lyon grade C distal third esophagitis. 24. Mid esophageal area moderate esophageal stenosis at 24 cm from incisors. 25. Hiatal hernia. 26. Gastritis. 27. Midesophageal stenosis. 28. Moderate to severe mitral regurgitation with severe left atrial enlargement. 1. Status post esophagogastroduodenoscopy. 2. Lyon grade D esophagitis extending from 24 cm level from the incisors. 3. Lyon grade C distal esophageal esophagitis. 4. A 5 cm hiatal hernia. 5. Gastric antral inflammation. 6. Gastritis. 7. Moderate esophageal stenosis at 24 cm from incisors to midesophageal area. 8. Tachycardia. 9. Hypertension. 10. Super morbid obesity. 11. Microcytic anemia. 12. Status post packed red blood cell transfusion x4. 13. Elevated reticulocyte count of greater than 2.25. 14. Elevated D-dimer, etiology undetermined. 15. Hypokalemia. 16. Hyperbilirubinemia. 17. Hypovitaminosis D. 18. Bilateral lower extremity nonpitting lymphedema. 19. Severe vitamin B12 deficiency with vitamin B12 level of 208. 20. Relative folate deficiency. 21. Trace right pleural effusion. 22. Moderate cardiomegaly. 23. Moderate-sized hiatal hernia. 24. Atelectasis and scarring. 25. Calcified cholelithiasis. 26. Degenerative joint disease of the lumbar spine. 27. Hips and proximal thighs subcutaneous tissue stranding, etiology undetermined. 28. Subcentimeter mesenteric lymphadenopathy, nonspecific 29. Heterogeneous thyroid gland without nodules. 30. Multiple cholelithiasis. 31. Sinus tachycardia. 32. Questionable old inferior wall myocardial infarction. 33. Mitral regurgitation with increasing left ventricular size. 1. Low-grade fever, etiology undetermined. 2. Severe symptomatic anemia, microcytic anemia with symptoms of shortness of breath, dyspnea on exertion and bilateral lower extremity swelling. 3. Status post 1 unit of packed red blood cells. 4. Tachycardia. 5. Microcytic anemia with granulocytosis. 6. Elevated reticulocyte count. 7. Elevated D-dimer of greater than 500, etiology unclear. 8. Severe iron deficiency. 9. Possible subclinical hyperthyroidism with elevated thyroxine level. 10. A+ blood type. 11. History of moderate mitral regurgitation. 12. History of mild pulmonary arterial hypertension. 13. Abnormal EKG with nonspecific ST changes. 14. Morbid obesity with elevated body mass index of 47. 15. Bibasilar atelectasis, scarring and intralobular septal thickening with bilateral pulmonary mosaic pattern. 16. Cardiomegaly. 17. Coronary artery calcification. 18. Moderate-sized hiatal hernia. 19. Calcified cholelithiasis. 20. Elevated right hemidiaphragm. 21. Hypertensive cardiovascular disease. 22. 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 1. Severe symptomatic anemia with symptoms of bilateral lower extremity venous stasis, dyspnea on exertion and shortness of breath. 2. Sinus tachycardia. 3. Severe symptomatic anemia, microcytic anemia. 4. Granulocytosis. 5. Elevated reticulocyte count. 6. Elevated D-dimer. 7. Iron-deficiency anemia. 8. Questionable hyperthyroidism with elevated T4 of 12.6. 9. Moderate cardiomegaly. 10. Bibasilar atelectasis scarring with bilateral pulmonary mosaic pattern of the lung parenchyma. 11. Mild interlobular septal thickening. 12. Moderate hiatal hernia. 13. Healing refracture. 14. Calcified cholelithiasis. 15. Elevated right hemidiaphragm. 16. Left ventricular hypertrophy and hypertensive cardiovascular disease. 17. Age indeterminate inferior infarct. 18. Questionable hypertension. Plan at this time, the patient was given potassium supplementation. The patient's standing order of potassium was increased. The patient has been ordered CBC, CMP, LFT, magnesium. Current consultation, Cardiology, their recommendation was noted. The recommendation by Cardiology is to have an elective transesophageal echo done in 4-6 weeks after the healing of the esophageal ulcer and esophagitis. The patient requires a transesophageal echocardiogram for evaluation of mitral valve repair in 4-6 weeks. Infectious Disease recommend to continue 5 days of Tamiflu and continue cefepime and other antibiotics until final cultures are available. The patient was seen by metal model [employer], recommends to have a gastrostomy tube placement when the patient is medically stable. Current medications: Abilify 5 mg p.o. q.a.m., hold for sedation; Mucomyst nebulizer 200 mg 20% 4 mL q. 6 hours; Ativan 2 mg three times a day, hold for sedation; Carafate suspension 1 g twice a day; Drisdol 50,000 units weekly; Flagyl 500 IV q. 8; folic acid 1 mg daily; K-Dur increased to 20 mEq q.i.d.; Lasix 40 mg IV q. 12; Lexapro 10 mg daily; Lopressor 25 mg q. 8 hours; cefepime 1 g IV q. 8; Protonix 40 mg IV q. 12; Tamiflu 75 mg b.i.d. for 5 days; Tessalon Perles started 200 three times a day; Tylenol 650 mg p.o. or suppository q. 6 hours p.r.n. for temperature greater than 99.5; Xopenex nebulizer 0.63 mg every 6 hours; Zofran 4 mg IV q. 4. Chest PT, oxygen. The patient is ordered liquid diet. The patient has been ordered out of bed, FATOU stockings thigh high. Droplet percussions, occupational therapy, physical therapy ordered. At present, we are awaiting for the further evaluation by Interventional Radiology for a placement of gastrostomy tube. Dictated and electronically signed, not read. Nathan Sorensen MD MTDD
[2017-07-24] MEDS: Acetylcysteine 20% Inhal Soln (4ml) IH SCH ×4 (02:13→19:20)
[2017-07-24] MEDS: Levalbuterol 0.63 MG/3 ML Inhal Soln UD IH SCH ×4 (02:13→19:20)
[2017-07-24] MEDS: Sucralfate 1 gm/10 ml Oral Susp UD PO SCH ×2 (05:00→18:03)
[2017-07-24] MEDS: metroNIDAZOLE IV 500 mg/100 ml 500 MG/100 ML BAG IVPB SCH ×3 (05:00→22:18)
[2017-07-24] MEDS: Cefepime 1gm in NS 100ml 1 GM/100 ML BAG IVPB SCH ×3 (05:01→22:19)
[2017-07-24] MEDS: Potassium Chloride 20 mEq ER Tab PO SCH ×4 (08:27→22:19)
--- NOTE | 2017-07-24 11:23 | CP.PCM.PN ---
Subjective - Date & Time of Evaluation Date of Evaluation: 07/24/17 Time of Evaluation: 10:50 - Subjective Subjective: Comfortable, no fevers, not in distress. Objective - Vital Signs/Intake and Output Vital Signs (last 24 hours): Temp Pulse Resp BP Pulse Ox 97.5 F L 78 18 118/72 95 07/23/17 17:34 07/24/17 08:28 07/23/17 17:34 07/24/17 08:28 07/23/17 17:34 Intake and Output: 07/24/17 07/24/17 06:59 18:59 Intake Total 320 Output Total 500 Balance -180 - Medications Medications: Current Medications Acetaminophen (Tylenol 325mg Tab) 650 mg PO Q6H PRN; Protocol PRN Reason: Fever >99.5 F Acetaminophen (Tylenol 650 Mg Supp) 650 mg RC Q4H PRN; Protocol PRN Reason: fever>99.5 F Acetylcysteine (Acetylcysteine 20%) 4 ml IH [id number] [facility] Last Admin: 07/24/17 07:18 Dose: 4 ml Aripiprazole (Abilify) 5 mg PO QAM JEFFERY PRN Reason: Protocol Last Admin: 07/24/17 09:40 Dose: 5 mg Benzonatate (Tessalon Perles) 200 mg PO TID JEFFERY Last Admin: 07/24/17 09:45 Dose: 200 mg Cyanocobalamin (Vitamin B12 1000 Mcg/Ml Inj) 1,000 mcg IM DAILY JEFFERY PRN Reason: Protocol Stop: 07/27/17 10:00 Last Admin: 07/24/17 09:45 Dose: 1,000 mcg Ergocalciferol (Drisdol 50,000 Intl Units Cap) 1 cap PO Q7D JEFFERY PRN Reason: Protocol Last Admin: 07/20/17 18:38 Dose: 1 cap Escitalopram Oxalate (Lexapro) 10 mg PO DAILY [facility] Last Admin: 07/24/17 09:44 Dose: 10 mg Folic Acid (Folic Acid) 1 mg PO DAILY JEFFERY PRN Reason: Protocol Last Admin: 07/24/17 09:43 Dose: 1 mg Furosemide (Lasix) 40 mg IVP 0600,1800 JEFFERY PRN Reason: Protocol Last Admin: 07/24/17 05:42 Dose: 40 mg Metronidazole (Flagyl) 500 mg in 100 mls @ 100 mls/hr IVPB Q8 JEFFERY PRN Reason: Protocol Last Admin: 07/24/17 05:00 Dose: 100 mls/hr Cefepime HCl (Maxipime 1gm) 1 gm in 100 mls @ 100 mls/hr IVPB Q8 JEFFERY PRN Reason: Protocol Last Admin: 07/24/17 05:01 Dose: 100 mls/hr Pantoprazole Sodium (Protonix 40mg Ivpb) 40 mg in 100 mls @ 200 mls/hr IVPB 0600,1800 [facility] Last Admin: 07/24/17 05:01 Dose: 200 mls/hr Levalbuterol HCl (Xopenex) 0.63 mg IH [id number] [facility] Last Admin: 07/24/17 07:18 Dose: 0.63 mg Lorazepam (Ativan) 2 mg PO Q8H JEFFERY PRN Reason: Protocol Metoprolol Tartrate (Lopressor) 25 mg PO 0800,1230,1800 [facility] PRN Reason: Protocol Last Admin: 07/24/17 08:28 Dose: 25 mg Ondansetron HCl (Zofran Inj) 4 mg IVP Q4H PRN PRN Reason: Nausea/Vomiting Last Admin: 07/23/17 11:57 Dose: 4 mg Oseltamivir Phosphate (Tamiflu Cap) 75 mg PO BID JEFFERY PRN Reason: Protocol Stop: 07/26/17 08:45 Last Admin: 07/24/17 09:44 Dose: 75 mg Potassium Chloride (K-Dur 20 Meq Er Tab) 20 meq PO 0730,1230,1800,2200 JEFFERY PRN Reason: Protocol Last Admin: 07/24/17 08:27 Dose: 20 meq Sucralfate (Carafate Oral Susp) 1 gm PO 0600,1600 JEFFERY PRN Reason: Protocol Last Admin: 07/24/17 05:00 Dose: 1 gm - Labs Labs: 07/23/17 05:40 07/23/17 05:40 - Constitutional Appears: Non-toxic, Chronically Ill - Head Exam Head Exam: NORMAL INSPECTION - ENT Exam ENT Exam: Mucous Membranes Moist - Neck Exam Neck Exam: absent: Meningismus - Respiratory Exam Respiratory Exam: Decreased Breath Sounds - Cardiovascular Exam Cardiovascular Exam: +S1, +S2 - GI/Abdominal Exam GI & Abdominal Exam: Soft. absent: Tenderness Assessment and Plan - Assessment and Plan (Free Text) Plan: Assessment Systemic viral illness with Influenza R/O bacterial sepsis from intra-abdominal infection morbid obesity with BMI 42 chronic CHF severe esophagitis chronic anemia S/P appendectomy developmental disability bipolar disorder anxiety cholelithiasis Plan continue Tamiflu day 4 to complete 5 days - rapid flu test is positive continue Cefepime and Flagyl day 6 to complete 7 days R/O intra-abdominal infection will continue to monitor clinically
--- NOTE | 2017-07-24 16:44 | CP.PCM.PN ---
Subjective - Date & Time of Evaluation Date of Evaluation: 07/24/17 Time of Evaluation: 10:50 - Subjective Subjective: S&E at bedside,tolerating clear liquid, denies N/V or abdominal pain, no BM yet today, had one yesterday. No acute overnight events reported. Objective - Vital Signs/Intake and Output Vital Signs (last 24 hours): Temp Pulse Resp BP Pulse Ox 97.5 F L 78 18 120/60 95 07/23/17 17:34 07/24/17 08:28 07/23/17 17:34 07/24/17 13:57 07/23/17 17:34 Intake and Output: 07/24/17 07/24/17 06:59 18:59 Intake Total 320 Output Total 500 Balance -180 - Medications Medications: Current Medications Acetaminophen (Tylenol 325mg Tab) 650 mg PO Q6H PRN; Protocol PRN Reason: Fever >99.5 F Acetaminophen (Tylenol 650 Mg Supp) 650 mg RC Q4H PRN; Protocol PRN Reason: fever>99.5 F Acetylcysteine (Acetylcysteine 20%) 4 ml IH [id number] JEFFERY Last Admin: 07/24/17 13:10 Dose: 4 ml Aripiprazole (Abilify) 5 mg PO QAM JEFFERY PRN Reason: Protocol Last Admin: 07/24/17 09:40 Dose: 5 mg Benzonatate (Tessalon Perles) 200 mg PO TID JEFFERY Last Admin: 07/24/17 13:57 Dose: 200 mg Cyanocobalamin (Vitamin B12 1000 Mcg/Ml Inj) 1,000 mcg IM DAILY JEFFERY PRN Reason: Protocol Stop: 07/27/17 10:00 Last Admin: 07/24/17 09:45 Dose: 1,000 mcg Ergocalciferol (Drisdol 50,000 Intl Units Cap) 1 cap PO Q7D JEFFERY PRN Reason: Protocol Last Admin: 07/20/17 18:38 Dose: 1 cap Escitalopram Oxalate (Lexapro) 10 mg PO DAILY JEFFERY Last Admin: 07/24/17 09:44 Dose: 10 mg Folic Acid (Folic Acid) 1 mg PO DAILY JEFFERY PRN Reason: Protocol Last Admin: 07/24/17 09:43 Dose: 1 mg Furosemide (Lasix) 40 mg IVP 0600,1800 JEFFERY PRN Reason: Protocol Last Admin: 07/24/17 05:42 Dose: 40 mg Metronidazole (Flagyl) 500 mg in 100 mls @ 100 mls/hr IVPB Q8 JEFFERY PRN Reason: Protocol Last Admin: 07/24/17 13:56 Dose: 100 mls/hr Cefepime HCl (Maxipime 1gm) 1 gm in 100 mls @ 100 mls/hr IVPB Q8 JEFFERY PRN Reason: Protocol Last Admin: 07/24/17 13:55 Dose: 100 mls/hr Pantoprazole Sodium (Protonix 40mg Ivpb) 40 mg in 100 mls @ 200 mls/hr IVPB 0600,1800 JEFFERY Last Admin: 07/24/17 05:01 Dose: 200 mls/hr Levalbuterol HCl (Xopenex) 0.63 mg IH [id number] [facility] Last Admin: 07/24/17 13:10 Dose: 0.63 mg Lorazepam (Ativan) 2 mg PO Q8H JEFFERY PRN Reason: Protocol Last Admin: 07/24/17 13:55 Dose: Not Given Metoprolol Tartrate (Lopressor) 25 mg PO 0800,1230,1800 [facility] PRN Reason: Protocol Last Admin: 07/24/17 13:57 Dose: 25 mg Ondansetron HCl (Zofran Inj) 4 mg IVP Q4H PRN PRN Reason: Nausea/Vomiting Last Admin: 07/23/17 11:57 Dose: 4 mg Oseltamivir Phosphate (Tamiflu Cap) 75 mg PO BID JEFFERY PRN Reason: Protocol Stop: 07/26/17 08:45 Last Admin: 07/24/17 09:44 Dose: 75 mg Potassium Chloride (K-Dur 20 Meq Er Tab) 20 meq PO 0730,1230,1800,2200 JEFFERY PRN Reason: Protocol Last Admin: 07/24/17 13:56 Dose: 20 meq Sucralfate (Carafate Oral Susp) 1 gm PO 0600,1600 JEFFERY PRN Reason: Protocol Last Admin: 07/24/17 05:00 Dose: 1 gm - Labs Labs: 07/23/17 05:40 07/23/17 05:40 - Constitutional Appears: No Acute Distress - Eye Exam Eye Exam: Normal appearance. absent: Scleral icterus - ENT Exam ENT Exam: Mucous Membranes Moist - Neck Exam Neck Exam: Normal Inspection - Respiratory Exam Respiratory Exam: NORMAL BREATHING PATTERN. absent: Respiratory Distress - Cardiovascular Exam Cardiovascular Exam: +S1, +S2 - GI/Abdominal Exam GI & Abdominal Exam: Soft, Normal Bowel Sounds. absent: Guarding, Tenderness, Rebound - Extremities Exam Extremities Exam: Pedal Edema (b/l LE edema improved). absent: Calf Tenderness - Neurological Exam Neurological Exam: Alert, Awake, Oriented x3 Assessment and Plan - Assessment and Plan (Free Text) Assessment: Assessment: Influenza Anemia, s/p blood transfusion Esophageal ulcers, S/P EGD found LA grade D esophagitis Esophageal strictureThomas secondary to extrinsic compression GERD Bipolar disorder Bilateral lower extremity edema, lower extremity Doppler negative Plan: Continue Protonix 40 every 12 On Carafate liquid clear liquid On Tamiflu On IV antibiotics Monitor H&H and for overt GI bleed monitor H/h for overt GI bleeding. cardiology FU G-tube when medically stable. Seen and discussed with Dr. [place].
--- NOTE | 2017-07-24 23:41 | CP.PCM.PN ---
Subjective - Date & Time of Evaluation Date of Evaluation: 07/24/17 Time of Evaluation: 08:00 - Subjective Subjective: Patient seen and examined at bedside. Patient resting comfortably in her chair. Patient no complaints of dysphagia or weakness. Patient continues to work with physical therapy. Denies chest pain, shortness of breath, nausea, vomiting, diarrhea, fever, chills. Objective - Vital Signs/Intake and Output Vital Signs (last 24 hours): Temp Pulse Resp BP Pulse Ox 97.9 F 112 H 20 112/70 92 L 07/24/17 17:34 07/24/17 18:04 07/24/17 17:34 07/24/17 18:37 07/24/17 17:34 Intake and Output: 07/24/17 07/25/17 18:59 06:59 Intake Total 420 Output Total 500 Balance -80 - Medications Medications: Current Medications Acetaminophen (Tylenol 325mg Tab) 650 mg PO Q6H PRN; Protocol PRN Reason: Fever >99.5 F Acetaminophen (Tylenol 650 Mg Supp) 650 mg RC Q4H PRN; Protocol PRN Reason: fever>99.5 F Acetylcysteine (Acetylcysteine 20%) 4 ml IH [id number] [facility] Last Admin: 07/24/17 19:20 Dose: 4 ml Aripiprazole (Abilify) 5 mg PO QAM JEFFERY PRN Reason: Protocol Last Admin: 07/24/17 09:40 Dose: 5 mg Benzonatate (Tessalon Perles) 200 mg PO TID JEFFERY Last Admin: 07/24/17 18:05 Dose: 200 mg Cyanocobalamin (Vitamin B12 1000 Mcg/Ml Inj) 1,000 mcg IM DAILY JEFFERY PRN Reason: Protocol Stop: 07/27/17 10:00 Last Admin: 07/24/17 09:45 Dose: 1,000 mcg Ergocalciferol (Drisdol 50,000 Intl Units Cap) 1 cap PO Q7D JEFFERY PRN Reason: Protocol Last Admin: 07/20/17 18:38 Dose: 1 cap Escitalopram Oxalate (Lexapro) 10 mg PO DAILY JEFFERY Last Admin: 07/24/17 09:44 Dose: 10 mg Folic Acid (Folic Acid) 1 mg PO DAILY JEFFERY PRN Reason: Protocol Last Admin: 07/24/17 09:43 Dose: 1 mg Furosemide (Lasix) 40 mg IVP 0600,1800 JEFFERY PRN Reason: Protocol Last Admin: 07/24/17 18:37 Dose: 40 mg Metronidazole (Flagyl) 500 mg in 100 mls @ 100 mls/hr IVPB Q8 JEFFERY PRN Reason: Protocol Last Admin: 07/24/17 22:18 Dose: 100 mls/hr Cefepime HCl (Maxipime 1gm) 1 gm in 100 mls @ 100 mls/hr IVPB Q8 JEFFERY PRN Reason: Protocol Last Admin: 07/24/17 22:19 Dose: 100 mls/hr Pantoprazole Sodium (Protonix 40mg Ivpb) 40 mg in 100 mls @ 200 mls/hr IVPB 0600,1800 JEFFERY Last Admin: 07/24/17 18:05 Dose: 200 mls/hr Levalbuterol HCl (Xopenex) 0.63 mg IH [id number] JEFFERY Last Admin: 07/24/17 19:20 Dose: 0.63 mg Lorazepam (Ativan) 2 mg PO Q8H JEFFERY PRN Reason: Protocol Last Admin: 07/24/17 18:02 Dose: 2 mg Metoprolol Tartrate (Lopressor) 25 mg PO 0800,1230,1800 JEFFERY PRN Reason: Protocol Last Admin: 07/24/17 18:04 Dose: 25 mg Ondansetron HCl (Zofran Inj) 4 mg IVP Q4H PRN PRN Reason: Nausea/Vomiting Last Admin: 07/23/17 11:57 Dose: 4 mg Oseltamivir Phosphate (Tamiflu Cap) 75 mg PO BID JEFFERY PRN Reason: Protocol Stop: 07/26/17 08:45 Last Admin: 07/24/17 18:05 Dose: 75 mg Potassium Chloride (K-Dur 20 Meq Er Tab) 20 meq PO 0730,1230,1800,2200 JEFFERY PRN Reason: Protocol Last Admin: 07/24/17 22:19 Dose: 20 meq Sucralfate (Carafate Oral Susp) 1 gm PO 0600,1600 JEFFERY PRN Reason: Protocol Last Admin: 07/24/17 18:03 Dose: 1 gm - Labs Labs: 07/23/17 05:40 07/23/17 05:40 - Constitutional Appears: Non-toxic, No Acute Distress - Head Exam Head Exam: ATRAUMATIC, NORMAL INSPECTION, NORMOCEPHALIC - ENT Exam ENT Exam: Mucous Membranes Moist, Normal Exam - Respiratory Exam Respiratory Exam: Clear to Ausculation Bilateral, NORMAL BREATHING PATTERN - Cardiovascular Exam Cardiovascular Exam: RRR, +S1, +S2 - GI/Abdominal Exam GI & Abdominal Exam: Soft, Normal Bowel Sounds. absent: Tenderness - Extremities Exam Extremities Exam: Pedal Edema (Trace b/l). absent: Calf Tenderness - Neurological Exam Neurological Exam: Alert, Awake, Oriented x3 - Psychiatric Exam Psychiatric exam: Normal Affect, Normal Mood - Skin Skin Exam: Intact, Normal Color, Warm Assessment and Plan - Assessment and Plan (Free Text) Plan: 52 year old female with past medical history of morbid obesity, CHF, severe esophagitis, symptomatic anemia, developmental disability, bipolar disorder, anxiety, and cholelithiasis presents with esophagitis and ulceration secondary to enlarging left atrium in the setting of decompensated CHF. Patient remain in the TCU, improving on liquid diet. Patient also remains on Tamiflu for influenza. Patient will have PEG tube placed by IR and GI, to be arranged between the two consultants. Patient anemia stable at this time. Patient will be continued on current medical regimen at this time. Will continue to monitor closely and keep patient on same diet. Will follow up on recommendations of consults. Alban, PGY-2
[2017-07-25] MEDS: Acetylcysteine 20% Inhal Soln (4ml) IH SCH ×4 (02:20→21:34)
[2017-07-25] MEDS: Levalbuterol 0.63 MG/3 ML Inhal Soln UD IH SCH ×4 (02:20→21:34)
[2017-07-25] MEDS: Sucralfate 1 gm/10 ml Oral Susp UD PO SCH ×2 (05:16→17:45)
[2017-07-25] MEDS: Cefepime 1gm in NS 100ml 1 GM/100 ML BAG IVPB SCH ×3 (05:16→23:25)
[2017-07-25] MEDS: metroNIDAZOLE IV 500 mg/100 ml 500 MG/100 ML BAG IVPB SCH ×3 (05:16→22:55)
[2017-07-25 07:04] LABS: BASO # 0.02 K/mm3 (0.0-2.0); BASO % 0.4 % (0.0-3.0); EOS # 0.1 (0.0-0.7); EOS % 2.3 % (1.5-5.0); GRAN # 2.89 (1.4-6.5); GRAN % 61.3 % (50.0-68.0); HEMOGLOBIN 10.8 g/dL (12.0-16.0); LYMPH # 1.2 (1.2-3.4); LYMPH % 25.6 % (22.0-35.0); MEAN CELL VOLUME 76.9 fl (80.0-105.0); MEAN CORPUSCULAR HEMOGLOBIN 20.8 pg (25.0-35.0); MEAN PLATELET VOLUME 9.7 fl (7.0-11.0); MONO # 0.5 (0.1-0.6); MONO % 10.4 % (1.0-6.0); RBC 5.2 10^6/uL (3.5-6.1); RED CELL DISTRIBUTION WIDTH 29.5 % (11.5-14.5); WHITE BLOOD COUNT 4.7 10^3/ul (4.5-11.0)
[2017-07-25 07:21] LABS: ALB/GLOB RATIO 1.3 (1.1-1.8); ALBUMIN 3.5 g/dL (3.0-4.8); ALT/SGPT 27 U/L (7-56); AST/SGOT 29 U/L (14-36); BILIRUBIN,DIRECT 0.3 mg/dL (0.0-0.4); BLOOD UREA NITROGEN 15 mg/dL (7-21); CALCIUM 8.8 mg/dL (8.4-10.5); GFR AFRICAN-AMERICAN > 60; GFR NON-AFRICAN AMERICAN > 60; MAGNESIUM 2.3 mg/dL (1.7-2.2)
--- NOTE | 2017-07-25 07:48 | PN ---
DATE: 07/24/2017 SUBJECTIVE: The patient is seen in room 304, bed 1. The patient is out of bed to recliner. The patient is alert, awake, responsive. The patient does not appear to be in any distress. The patient does not offer any specific complaints. Overnight nurse's notes were reviewed. OBJECTIVE: GENERAL: The patient was found to be alert, awake, oriented x3. No adverse events documented. VITAL SIGNS: T-max 98.1; heart rate 79, 78, 88, 98; respiration 20; blood pressure in the last 24 hours 118/72, 131/84, 118/70, 120/60; respirations are 20; O2 sat in the last 24 hours 95%, 94%, 100%. Intake output not documented. HEENT: Head: Normocephalic, atraumatic. Pinkish conjunctivae. Anicteric sclerae. No oropharyngeal lesion. NECK: No neck rigidity. CHEST: Kyphosis. LUNGS: Shows decreased breath sound at the bases. No crackles, rales or wheezing. CARDIOVASCULAR: S1, S2, regular rhythm. Positive systolic murmur at left sternal border, right second intercostal space, left second intercostal space. ABDOMEN: Obese. Positive bowel sounds. No hepatosplenomegaly appreciated. No guarding, no rigidity, no rebound tenderness. GENITALIA: Female. RECTAL: Deferred. EXTREMITIES: Shows decreasing lymphedema type swelling of the lower extremity. MUSCULOSKELETAL: Shows a body mass index of 42.3. Cranial nerves II-XII limited. Gait examination is independent. VASCULAR: Unable to palpate pulses. DIAGNOSTICS: From 07/23/2017 were reviewed. IMPRESSION: 1. Deconditioning. 2. Gait dysfunction. 3. Depressive disorder with psychotic feature, in full remission. 4. Severe symptomatic anemia, status post packed red blood cell transfusion. 5. Iron-deficiency anemia, status post IV Venofer treatment. 6. Influenza A. 7. Esophageal ulcer and [place] grade D esophagitis. 8. Mid esophageal stenosis secondary to extrinsic compression from left ventricular enlargement and mitral regurgitation. 9. Bipolar disorder. 10. Bilateral lower extremity venous stasis. 11. Fever. 12. Hypokalemia. 13. Systemic inflammatory response syndrome with influenza A systemic viral illness. 14. Morbid obesity. 15. Developmentally disabled. 16. Leukopenia, normocytic anemia. 17. Hypovitaminosis D. 18. Depression. 19. Tachycardia. 20. Coughing. 21. Vitamin B12 deficiency. 1. Deconditioning. 2. Gait dysfunction. 3. [place] grade D esophageal ulcer and esophagitis. 4. Hiatal hernia. 5. Influenza A. 6. Severe symptomatic anemia with symptoms of shortness of breath and lower extremity swelling. 7. Status post packed red blood cell transfusion. 8. Midesophageal stenosis and stricture secondary to extensive compression, probably secondary to the left ventricular enlargement. 9. Bipolar disorder. 10. Influenza A. 11. Status post high-grade fever. 12. Systemic viral illness with influenza or influenza A systemic viral illness. 13. Morbid obesity with elevated body mass index of 43. 14. Severe esophagitis. 15. Bipolar disorder. 16. Hypertension. 17. Tachycardia. 18. Leukopenia and microcytic anemia. 19. Hypokalemia. 20. Gait dysfunction. 21. Deconditioning. 23. Mitral regurgitation. 24. Left ventricle ejection fraction of 53%. 25. Pulmonary arterial hypertension with right ventricular systolic pressure of 56 mmHg. 26. Mildly dilated left ventricle. 27. Mildly dilated left atrium. 28. Thickened aortic valve and thickened mitral valve. 29. Moderate mitral regurgitation. 30. Moderate pulmonary arterial hypertension. 31. Hypokalemia. 1. Deconditioning. 2. Gait dysfunction. 3. Cough. 4. Cardiomegaly. 5. Influenza A infection. 6. Leukopenia, anemia. 7. Morbid obesity with elevated body mass index of 42.3. 8. Severe esophagitis. 9. Systemic viral infection with influenza A. 10. Bipolar disorder. 11. Anxiety disorder. 12. History of anxiety, depression, bipolar disorder. 13. Iron-deficiency anemia. 15. Status post IV Venofer. 16. Vitamin B12 deficiency. 17. Hypovitaminosis D. 18. Depression. 19. Tachycardia. 20. Hypokalemia. 21. Left ventricle ejection fraction of 53%. 22. Right-sided diastolic congestive heart failure with elevated right ventricular systolic pressure of 56 mmHg and moderate pulmonary arterial hypertension. 23. Mildly dilated left ventricle. 24. Moderate mitral regurgitation with eccentrically directed regurgitant jet. 25. Mild tricuspid regurgitation. 26. Moderate pulmonary arterial hypertension. 1. Deconditioning. 2. Gait dysfunction. 3. High-grade fever of 102 degrees Fahrenheit. 4. Influenza A positive. 5. Hypertension. 6. Severe symptomatic anemia with symptoms of shortness of breath. 7. Leukopenia. 8. Borderline hypokalemia. 9. Morbid obesity. 10. Left ventricular ejection fraction of 53%. 11. Pulmonary hypertension with a right ventricular systolic pressure of 56 mmHg. 12. Moderately dilated left ventricle. 13. Mildly dilated left atrium. 14. Thickened aortic valve. 15. Moderate mitral regurgitation with eccentrically-directed regurgitant jet. 16. Mild tricuspid regurgitation. 17. Moderate pulmonary arterial hypertension. 18 [place] grade D esophagitis and esophageal ulcer, extending from 24 cm level from incisors with [place] grade C distal esophagitis and esophageal ulcers. 19. Mid-esophageal area moderate stenosis at 24 cm. 20. Hiatal hernia. 21. Enterogastritis. 22. Status post packed red blood cell transfusion. 23. History of anxiety and depression, question bipolar disorder. 24. Hypovitaminosis D. 25. Hypokalemia. 26. Right-sided diastolic congestive heart failure with pulmonary arterial hypertension. 27. Vitamin B12 deficiency. 28. Escherichia coli urinary tract infection. 29. Basilar atelectasis. 30. Cardiomegaly. 1. Questionable and possible systemic inflammatory response syndrome with high-grade fever of 101.9. 2. Tachycardia. 3. Hypo and hypertension. 4. Severe symptomatic microcytic anemia, status post packed red blood cell transfusion x4. 5. Elevated reticulocyte count of greater than 2.5. 6. Elevated D-dimer of greater than 535, etiology undetermined. 7. Hypokalemia. 8. Severe iron deficiency anemia. 9. Vitamin B12 deficiency. 10. Questionable and possible subclinical hyperthyroidism. 11. Hypovitaminosis D. 12. Morbid obesity with body mass index of 47. 13. Developmentally disabled. 14. Hyperbilirubinemia. 15. Status post esophagogastroduodenoscopy and a grade B esophagitis. 16. Questionable and possible left atrial enlargement, coughing, and extrinsic esophageal stenosis. 17. History of anxiety, depression, and bipolar disorder. 18. Left ventricular ejection fraction of 53%. 19. [id number] pulmonary arterial hypertension with right ventricular systolic pressure of 56 mmHg. 20. Mildly dilated left ventricle. 21. Mildly dilated left atrium. 22. Moderate mitral regurgitation with eccentrically located regurgitant jet . 23. Moderate mitral regurgitation with posteriorly directed jet. 24. Sinus tachycardia with nonspecific ST-T wave changes. 1. Severe symptomatic anemia with symptoms of shortness of breath, dyspnea on exertion. 2. Hypertension. 3. Tachycardia. 4. Morbid obesity. 5. Severe gait dysfunction. 6. Microcytic anemia. 7. Status post packed red blood cell transfusion x4. 8. Elevated reticulocyte count of greater than 2.25. 9. Elevated D-dimer, etiology undetermined. 10. Hypokalemia. 11. Iron deficiency. 12. Severe vitamin B12 deficiency. 13. Hypovitaminosis D. 14. Questionable and possible subclinical hyperthyroidism with elevated T4. 15. Folate deficiency. 16. Gait dysfunction. 17. Deconditioning. 18. Left ventricular ejection fraction of 53-63%. 19. Pulmonary hypertension with right ventricular systolic pressure of 56 mmHg. 20. Cholelithiasis. 21. Status post esophagogastroduodenoscopy. 22. [place] grade D esophagitis extending from 24 cm level from incisors. 23. [place] grade C distal third esophagitis. 24. Mid esophageal area moderate esophageal stenosis at 24 cm from incisors. 25. Hiatal hernia. 26. Gastritis. 27. Midesophageal stenosis. 28. Moderate to severe mitral regurgitation with severe left atrial enlargement. 1. Status post esophagogastroduodenoscopy. 2. [place] grade D esophagitis extending from 24 cm level from the incisors. 3. [place] grade C distal esophageal esophagitis. 4. A 5 cm hiatal hernia. 5. Gastric antral inflammation. 6. Gastritis. 7. Moderate esophageal stenosis at 24 cm from incisors to midesophageal area. 8. Tachycardia. 9. Hypertension. 10. Super morbid obesity. 11. Microcytic anemia. 12. Status post packed red blood cell transfusion x4. 13. Elevated reticulocyte count of greater than 2.25. 14. Elevated D-dimer, etiology undetermined. 15. Hypokalemia. 16. Hyperbilirubinemia. 17. Hypovitaminosis D. 18. Bilateral lower extremity nonpitting lymphedema. 19. Severe vitamin B12 deficiency with vitamin B12 level of 208. 20. Relative folate deficiency. 21. Trace right pleural effusion. 22. Moderate cardiomegaly. 23. Moderate-sized hiatal hernia. 24. Atelectasis and scarring. 25. Calcified cholelithiasis. 26. Degenerative joint disease of the lumbar spine. 27. Hips and proximal thighs subcutaneous tissue stranding, etiology undetermined. 28. Subcentimeter mesenteric lymphadenopathy, nonspecific 29. Heterogeneous thyroid gland without nodules. 30. Multiple cholelithiasis. 31. Sinus tachycardia. 32. Questionable old inferior wall myocardial infarction. 33. Mitral regurgitation with increasing left ventricular size. 1. Low-grade fever, etiology undetermined. 2. Severe symptomatic anemia, microcytic anemia with symptoms of shortness of breath, dyspnea on exertion and bilateral lower extremity swelling. 3. Status post 1 unit of packed red blood cells. 4. Tachycardia. 5. Microcytic anemia with granulocytosis. 6. Elevated reticulocyte count. 7. Elevated D-dimer of greater than 500, etiology unclear. 8. Severe iron deficiency. 9. Possible subclinical hyperthyroidism with elevated thyroxine level. 10. A+ blood type. 11. History of moderate mitral regurgitation. 12. History of mild pulmonary arterial hypertension. 13. Abnormal EKG with nonspecific ST changes. 14. Morbid obesity with elevated body mass index of 47. 15. Bibasilar atelectasis, scarring and intralobular septal thickening with bilateral pulmonary mosaic pattern. 16. Cardiomegaly. 17. Coronary artery calcification. 18. Moderate-sized hiatal hernia. 19. Calcified cholelithiasis. 20. Elevated right hemidiaphragm. 21. Hypertensive cardiovascular disease. 22. 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 1. Severe symptomatic anemia with symptoms of bilateral lower extremity venous stasis, dyspnea on exertion and shortness of breath. 2. Sinus tachycardia. 3. Severe symptomatic anemia, microcytic anemia. 4. Granulocytosis. 5. Elevated reticulocyte count. 6. Elevated D-dimer. 7. Iron-deficiency anemia. 8. Questionable hyperthyroidism with elevated T4 of 12.6. 9. Moderate cardiomegaly. 10. Bibasilar atelectasis scarring with bilateral pulmonary mosaic pattern of the lung parenchyma. 11. Mild interlobular septal thickening. 12. Moderate hiatal hernia. 13. Healing refracture. 14. Calcified cholelithiasis. 15. Elevated right hemidiaphragm. 16. Left ventricular hypertrophy and hypertensive cardiovascular disease. 17. Age indeterminate inferior infarct. 18. Questionable hypertension. PLAN: At this time, the patient is awaiting placement of the gastrostomy tube by Interventional Radiology. The patient has been ordered repeat labs for the morning. CURRENT CONSULTATION: 1. Cardiology. 2. Gastroenterology. 3. Infectious Disease. 4. Interventional Radiology. 5. Psychiatry. CURRENT MEDICATIONS: Abilify 5 mg daily, Mucomyst 20% 4 mL nebulizer every 6 hours, Xopenex nebulizer 0.63 mg every 6 hours, Ativan 2 mg q. 8 hours for sedation, Carafate 1 g twice a day, Drisdol 50,000 weekly, Flagyl 500 IV q. 8, folic acid 1 mg daily, K-Dur 20 mEq 4 times a day, Lasix 40 mg IV q. 12, Lexapro 10 mg daily, Lopressor 25 mg 3 times a day, cefepime 1 g IV q. 8. The patient was given potassium supplementation yesterday. Tamiflu 75 mg twice a day for 5 days, Tylenol 650 mg p.o. suppository q.4h. p.r.n. for fever of greater than 99.5, vitamin B12 1000 mcg IM daily, Zofran 4 mg IV q. 4 p.r.n. Chest PT, oxygen, liquid diet ordered and out of bed, FATOU stocking, physical therapy, ambulation therapy, gait training, SCDs ordered. The patient seen by physical therapist. The patient seen by occupational therapist. Physical therapy discharge recommendation is home with services. The patient seen by family welfare social work professor.. The patient's case referred to [facility]. The patient was seen by the dietitian. The patient was seen by the respiratory therapist. The patient is to be continued on the above therapeutic intervention. The patient is awaiting further recommendations regarding the timing of the gastrostomy tube placement. The patient is to be continued on IV antibiotics for a total of 7 days as per Infectious Disease. Dictated and electronically signed, not read. Nathan Sorensen MD MTDD
[2017-07-25] MEDS: Potassium Chloride 20 mEq ER Tab PO SCH ×4 (08:09→22:55)
--- NOTE | 2017-07-25 08:15 | CON ---
DATE: 07/24/2017 PRESENTATION: The patient is a 52-year-old developmentally delayed white female seen at bedside on the TCU unit. The patient was originally admitted to the hospital on 07/15/2017 complaining of knee pain. Psychiatric consult was ordered and originally seen yesterday due to concerns of the patient being too sedated on her current medication regime. The patient was unable to give me some of the details of her history yesterday, so I was able to get in touch with her power of ip attorney who is her sister, Barbra Jameson, at [phone] and she was able to give me a few more details. The patient evidently sees Dr. Dolan outpatient and has been seeing him for a number of years. She verified the medications that the patient is currently on, which are Abilify 5 mg one daily, Lexapro 10 mg one daily and Ativan 2 mg one p.o. q.i.d. As of yesterday, I had cut it down to t.i.d. Unfortunately, it was being given 8, 12 and 4 as opposed to a more spread out dose, so in speaking with the nurses today, this was changed to q. 8 hours. She had two doses held yesterday. I educated the nurse about the fact that the patient is normally taking 8 mg a day, we cannot go down to 2 mg a day and not have withdrawal, they have been dropped by one dosage for the patient's safety and we were able to work out the schedule, in which she will receive the medication. The patient's sister verified that she lives independently in the community that she first sought treatment a few years ago for depression and anxiety and has done well on the present medication. I did explain what has been done about the Ativan so that the sister would be aware and able to convey this to her outpatient provider if necessary. The patient lives independently in the community. The patient is able to do most things on her own. She cannot handle money nor can she shop for herself, so her sisters visit her almost daily and manage her money and shop with her as well. The patient indicates that she is stable, sister verifies this. VITAL SIGNS: Her current vital signs today include temperature of 97.5, pulse of 101, blood pressure of 131/84, respiratory rate of 18, and O2 saturation of 95.She continues on flu precautions and is cooperative with all unit routines and taking her medication. MENTAL STATUS EXAM: The patient is alert and oriented x3. Eye contact is good. Behavior is cooperative. Speech rate and volume are within normal limits. Mood is blunted. Affect is constricted. Thoughts are goal directed, concrete and simplistic . She denies being suicidal or homicidal. Denies presence of hallucinations, delusions or paranoia. Her concentration and focus appeared adequate. Her memory, both short and oil heaterman, is developmentally appropriate. Her sleep and her appetite, she reports, are good. DIAGNOSTIC IMPRESSION: Major depression with anxiety, single episode, currently in remission. PLAN: Patient denies being suicidal or homicidal. According to her sister, she has no history of being suicidal or homicidal, no history of any suicide attempts. She does not appear in any imminent danger of hurting herself or others. Her Ativan has been adjusted, so that she should be less sedated. At this point in time, her power of ip attorney has been made aware of the changes. She will continue with Dr. Dolan outpatient with her medications as they were before other than the change in the Ativan, which will be Abilify 5 mg once daily, Lexapro 10 mg once daily and her Ativan 2 mg will be t.i.d. instead of q.i.d. I will sign off on this patient. Case discussed with Dr Leung. Thank you for the consult. Rose Mary Perez APN Sindhu Leung MD MTDD
--- NOTE | 2017-07-25 10:19 | CP.PCM.PN ---
Subjective - Date & Time of Evaluation Date of Evaluation: 07/25/17 Time of Evaluation: 09:55 - Subjective Subjective: Patient is doing some physical therapy, no fevers, no diarrhea. Objective - Vital Signs/Intake and Output Vital Signs (last 24 hours): Temp Pulse Resp BP Pulse Ox 97.9 F 85 20 116/74 92 L 07/24/17 17:34 07/25/17 08:09 07/24/17 17:34 07/25/17 08:09 07/24/17 17:34 Intake and Output: 07/25/17 07/25/17 06:59 18:59 Intake Total 420 Output Total 500 Balance -80 - Medications Medications: Current Medications Acetaminophen (Tylenol 325mg Tab) 650 mg PO Q6H PRN; Protocol PRN Reason: Fever >99.5 F Acetaminophen (Tylenol 650 Mg Supp) 650 mg RC Q4H PRN; Protocol PRN Reason: fever>99.5 F Acetylcysteine (Acetylcysteine 20%) 4 ml IH [id number] [facility] Last Admin: 07/25/17 07:28 Dose: 4 ml Aripiprazole (Abilify) 5 mg PO QAM JEFFERY PRN Reason: Protocol Last Admin: 07/24/17 09:40 Dose: 5 mg Benzonatate (Tessalon Perles) 200 mg PO TID JEFFERY Last Admin: 07/24/17 18:05 Dose: 200 mg Cyanocobalamin (Vitamin B12 1000 Mcg/Ml Inj) 1,000 mcg IM DAILY JEFFERY PRN Reason: Protocol Stop: 07/27/17 10:00 Last Admin: 07/24/17 09:45 Dose: 1,000 mcg Ergocalciferol (Drisdol 50,000 Intl Units Cap) 1 cap PO Q7D JEFFERY PRN Reason: Protocol Last Admin: 07/20/17 18:38 Dose: 1 cap Escitalopram Oxalate (Lexapro) 10 mg PO DAILY [facility] Last Admin: 07/24/17 09:44 Dose: 10 mg Folic Acid (Folic Acid) 1 mg PO DAILY JEFFERY PRN Reason: Protocol Last Admin: 07/24/17 09:43 Dose: 1 mg Furosemide (Lasix) 40 mg IVP 0600,1800 JEFFERY PRN Reason: Protocol Last Admin: 07/25/17 07:11 Dose: 40 mg Metronidazole (Flagyl) 500 mg in 100 mls @ 100 mls/hr IVPB Q8 JEFFERY PRN Reason: Protocol Last Admin: 07/25/17 05:16 Dose: 100 mls/hr Cefepime HCl (Maxipime 1gm) 1 gm in 100 mls @ 100 mls/hr IVPB Q8 JEFFERY PRN Reason: Protocol Last Admin: 07/25/17 05:16 Dose: 100 mls/hr Pantoprazole Sodium (Protonix 40mg Ivpb) 40 mg in 100 mls @ 200 mls/hr IVPB 0600,1800 [facility] Last Admin: 07/25/17 05:17 Dose: 200 mls/hr Levalbuterol HCl (Xopenex) 0.63 mg IH [id number] [facility] Last Admin: 07/25/17 07:28 Dose: 0.63 mg Lorazepam (Ativan) 2 mg PO Q8H JEFFERY PRN Reason: Protocol Last Admin: 07/25/17 02:27 Dose: Not Given Metoprolol Tartrate (Lopressor) 25 mg PO 0800,1230,1800 [facility] PRN Reason: Protocol Last Admin: 07/25/17 08:09 Dose: 25 mg Ondansetron HCl (Zofran Inj) 4 mg IVP Q4H PRN PRN Reason: Nausea/Vomiting Last Admin: 07/23/17 11:57 Dose: 4 mg Oseltamivir Phosphate (Tamiflu Cap) 75 mg PO BID JEFFERY PRN Reason: Protocol Stop: 07/26/17 08:45 Last Admin: 07/24/17 18:05 Dose: 75 mg Potassium Chloride (K-Dur 20 Meq Er Tab) 20 meq PO 0730,1230,1800,2200 [facility] PRN Reason: Protocol Last Admin: 07/25/17 08:09 Dose: 20 meq Sucralfate (Carafate Oral Susp) 1 gm PO 0600,1600 JEFFERY PRN Reason: Protocol Last Admin: 07/25/17 05:16 Dose: 1 gm - Labs Labs: 07/25/17 06:10 07/25/17 06:10 - Constitutional Appears: Chronically Ill - Head Exam Head Exam: NORMAL INSPECTION - ENT Exam ENT Exam: Mucous Membranes Moist - Neck Exam Neck Exam: absent: Meningismus - Respiratory Exam Respiratory Exam: Decreased Breath Sounds - Cardiovascular Exam Cardiovascular Exam: +S1, +S2 - GI/Abdominal Exam GI & Abdominal Exam: Soft. absent: Tenderness Assessment and Plan - Assessment and Plan (Free Text) Plan: Assessment Systemic viral illness with Influenza R/O bacterial sepsis from intra-abdominal infection morbid obesity with BMI 42 chronic CHF severe esophagitis chronic anemia S/P appendectomy developmental disability bipolar disorder anxiety cholelithiasis Plan continue Tamiflu day 5 to complete 5 days - rapid flu test is positive (d/c after today) continue Cefepime and Flagyl day 7 to complete 7 days R/O intra-abdominal infection (d/c after today) will continue to monitor clinically discussed with Dr. Sorensen
--- NOTE | 2017-07-25 13:12 | PN ---
DATE: 07/25/2017 SUBJECTIVE: The patient is seen out of bed to chair in room 304, bed 1. The patient was found to be alert, awake, responsive, in no distress. Overnight nurse's notes were reviewed. The patient slept without any adverse events. PHYSICAL EXAMINATION: VITAL SIGNS: T-max is 98.1, pulse 85, blood pressure 116/74. HEENT: Head examination normocephalic, atraumatic. HEENT examination shows pinkish conjunctivae. Anicteric sclerae. No oropharyngeal lesion. No neck rigidity. CHEST: Kyphosis. LUNGS: Shows no rales, crackles or wheezing. Occasional rhonchi, upper lung harry, have cleared up. CARDIOVASCULAR: Shows S1, S2. Regular rhythm. Positive systolic murmur, left sternal border, left second intercostal space, right second intercostal space. ABDOMEN: Obese. Positive bowel sounds. GENITALIA: Female. RECTAL: Deferred. EXTREMITY: Shows chronic nonpitting swelling and edema of the lower extremity. MUSCULOSKELETAL: Shows a body mass index of 42.3. NEUROLOGIC: The patient is alert, awake, responsive. PSYCHIATRIC: Denies suicidal or homicidal ideation. Denies any auditory or visual hallucination. DIAGNOSTICS: On 07/25/2017, WBC is 4.7, hemoglobin and hematocrit 10.8 and 40, platelets 294. Sodium 145, potassium 3.8, chloride 106, CO2 of 28, anion gap 15, BUN 15, creatinine 0.6, GFR greater than 60, glucose 109, calcium 8.8, magnesium 2.3. LFTs are normal. IMPRESSION AND PLAN: 1. Deconditioning. 2. Gait dysfunction. 3. Morbid obesity with elevated body mass index. 4. Hypertension. 5. Tachycardia. 6. Systemic viral infection secondary to influenza A with high-grade fever. 7. Severe symptomatic anemia. 8. Status post packed red blood cell transfusion. 9. Leukopenia. 10. Microcytic anemia. 11. Hypokalemia. 12. Cardiomegaly. 1. Deconditioning. 2. Gait dysfunction. 3. Depressive disorder with psychotic feature, in full remission. 4. Severe symptomatic anemia, status post packed red blood cell transfusion. 5. Iron-deficiency anemia, status post IV Venofer treatment. 6. Influenza A. 7. Esophageal ulcer and [place] grade D esophagitis. 8. Mid esophageal stenosis secondary to extrinsic compression from left ventricular enlargement and mitral regurgitation. 9. Bipolar disorder. 10. Bilateral lower extremity venous stasis. 11. Fever. 12. Hypokalemia. 13. Systemic inflammatory response syndrome with influenza A systemic viral illness. 14. Morbid obesity. 15. Developmentally disabled. 16. Leukopenia, normocytic anemia. 17. Hypovitaminosis D. 18. Depression. 19. Tachycardia. 20. Coughing. 21. Vitamin B12 deficiency. 1. Deconditioning. 2. Gait dysfunction. 3. [place] grade D esophageal ulcer and esophagitis. 4. Hiatal hernia. 5. Influenza A. 6. Severe symptomatic anemia with symptoms of shortness of breath and lower extremity swelling. 7. Status post packed red blood cell transfusion. 8. Midesophageal stenosis and stricture secondary to extensive compression, probably secondary to the left ventricular enlargement. 9. Bipolar disorder. 10. Influenza A. 11. Status post high-grade fever. 12. Systemic viral illness with influenza or influenza A systemic viral illness. 13. Morbid obesity with elevated body mass index of 43. 14. Severe esophagitis. 15. Bipolar disorder. 16. Hypertension. 17. Tachycardia. 18. Leukopenia and microcytic anemia. 19. Hypokalemia. 20. Gait dysfunction. 21. Deconditioning. 23. Mitral regurgitation. 24. Left ventricle ejection fraction of 53%. 25. Pulmonary arterial hypertension with right ventricular systolic pressure of 56 mmHg. 26. Mildly dilated left ventricle. 27. Mildly dilated left atrium. 28. Thickened aortic valve and thickened mitral valve. 29. Moderate mitral regurgitation. 30. Moderate pulmonary arterial hypertension. 31. Hypokalemia. 1. Deconditioning. 2. Gait dysfunction. 3. Cough. 4. Cardiomegaly. 5. Influenza A infection. 6. Leukopenia, anemia. 7. Morbid obesity with elevated body mass index of 42.3. 8. Severe esophagitis. 9. Systemic viral infection with influenza A. 10. Bipolar disorder. 11. Anxiety disorder. 12. History of anxiety, depression, bipolar disorder. 13. Iron-deficiency anemia. 15. Status post IV Venofer. 16. Vitamin B12 deficiency. 17. Hypovitaminosis D. 18. Depression. 19. Tachycardia. 20. Hypokalemia. 21. Left ventricle ejection fraction of 53%. 22. Right-sided diastolic congestive heart failure with elevated right ventricular systolic pressure of 56 mmHg and moderate pulmonary arterial hypertension. 23. Mildly dilated left ventricle. 24. Moderate mitral regurgitation with eccentrically directed regurgitant jet. 25. Mild tricuspid regurgitation. 26. Moderate pulmonary arterial hypertension. 1. Deconditioning. 2. Gait dysfunction. 3. High-grade fever of 102 degrees Fahrenheit. 4. Influenza A positive. 5. Hypertension. 6. Severe symptomatic anemia with symptoms of shortness of breath. 7. Leukopenia. 8. Borderline hypokalemia. 9. Morbid obesity. 10. Left ventricular ejection fraction of 53%. 11. Pulmonary hypertension with a right ventricular systolic pressure of 56 mmHg. 12. Moderately dilated left ventricle. 13. Mildly dilated left atrium. 14. Thickened aortic valve. 15. Moderate mitral regurgitation with eccentrically-directed regurgitant jet. 16. Mild tricuspid regurgitation. 17. Moderate pulmonary arterial hypertension. 18 [place] grade D esophagitis and esophageal ulcer, extending from 24 cm level from incisors with [place] grade C distal esophagitis and esophageal ulcers. 19. Mid-esophageal area moderate stenosis at 24 cm. 20. Hiatal hernia. 21. Enterogastritis. 22. Status post packed red blood cell transfusion. 23. History of anxiety and depression, question bipolar disorder. 24. Hypovitaminosis D. 25. Hypokalemia. 26. Right-sided diastolic congestive heart failure with pulmonary arterial hypertension. 27. Vitamin B12 deficiency. 28. Escherichia coli urinary tract infection. 29. Basilar atelectasis. 30. Cardiomegaly. 1. Questionable and possible systemic inflammatory response syndrome with high-grade fever of 101.9. 2. Tachycardia. 3. Hypo and hypertension. 4. Severe symptomatic microcytic anemia, status post packed red blood cell transfusion x4. 5. Elevated reticulocyte count of greater than 2.5. 6. Elevated D-dimer of greater than 535, etiology undetermined. 7. Hypokalemia. 8. Severe iron deficiency anemia. 9. Vitamin B12 deficiency. 10. Questionable and possible subclinical hyperthyroidism. 11. Hypovitaminosis D. 12. Morbid obesity with body mass index of 47. 13. Developmentally disabled. 14. Hyperbilirubinemia. 15. Status post esophagogastroduodenoscopy and a grade B esophagitis. 16. Questionable and possible left atrial enlargement, coughing, and extrinsic esophageal stenosis. 17. History of anxiety, depression, and bipolar disorder. 18. Left ventricular ejection fraction of 53%. 19. [id number] pulmonary arterial hypertension with right ventricular systolic pressure of 56 mmHg. 20. Mildly dilated left ventricle. 21. Mildly dilated left atrium. 22. Moderate mitral regurgitation with eccentrically located regurgitant jet . 23. Moderate mitral regurgitation with posteriorly directed jet. 24. Sinus tachycardia with nonspecific ST-T wave changes. 1. Severe symptomatic anemia with symptoms of shortness of breath, dyspnea on exertion. 2. Hypertension. 3. Tachycardia. 4. Morbid obesity. 5. Severe gait dysfunction. 6. Microcytic anemia. 7. Status post packed red blood cell transfusion x4. 8. Elevated reticulocyte count of greater than 2.25. 9. Elevated D-dimer, etiology undetermined. 10. Hypokalemia. 11. Iron deficiency. 12. Severe vitamin B12 deficiency. 13. Hypovitaminosis D. 14. Questionable and possible subclinical hyperthyroidism with elevated T4. 15. Folate deficiency. 16. Gait dysfunction. 17. Deconditioning. 18. Left ventricular ejection fraction of 53-63%. 19. Pulmonary hypertension with right ventricular systolic pressure of 56 mmHg. 20. Cholelithiasis. 21. Status post esophagogastroduodenoscopy. 22. [place] grade D esophagitis extending from 24 cm level from incisors. 23. [place] grade C distal third esophagitis. 24. Mid esophageal area moderate esophageal stenosis at 24 cm from incisors. 25. Hiatal hernia. 26. Gastritis. 27. Midesophageal stenosis. 28. Moderate to severe mitral regurgitation with severe left atrial enlargement. 1. Status post esophagogastroduodenoscopy. 2. [place] grade D esophagitis extending from 24 cm level from the incisors. 3. [place] grade C distal esophageal esophagitis. 4. A 5 cm hiatal hernia. 5. Gastric antral inflammation. 6. Gastritis. 7. Moderate esophageal stenosis at 24 cm from incisors to midesophageal area. 8. Tachycardia. 9. Hypertension. 10. Super morbid obesity. 11. Microcytic anemia. 12. Status post packed red blood cell transfusion x4. 13. Elevated reticulocyte count of greater than 2.25. 14. Elevated D-dimer, etiology undetermined. 15. Hypokalemia. 16. Hyperbilirubinemia. 17. Hypovitaminosis D. 18. Bilateral lower extremity nonpitting lymphedema. 19. Severe vitamin B12 deficiency with vitamin B12 level of 208. 20. Relative folate deficiency. 21. Trace right pleural effusion. 22. Moderate cardiomegaly. 23. Moderate-sized hiatal hernia. 24. Atelectasis and scarring. 25. Calcified cholelithiasis. 26. Degenerative joint disease of the lumbar spine. 27. Hips and proximal thighs subcutaneous tissue stranding, etiology undetermined. 28. Subcentimeter mesenteric lymphadenopathy, nonspecific 29. Heterogeneous thyroid gland without nodules. 30. Multiple cholelithiasis. 31. Sinus tachycardia. 32. Questionable old inferior wall myocardial infarction. 33. Mitral regurgitation with increasing left ventricular size. 1. Low-grade fever, etiology undetermined. 2. Severe symptomatic anemia, microcytic anemia with symptoms of shortness of breath, dyspnea on exertion and bilateral lower extremity swelling. 3. Status post 1 unit of packed red blood cells. 4. Tachycardia. 5. Microcytic anemia with granulocytosis. 6. Elevated reticulocyte count. 7. Elevated D-dimer of greater than 500, etiology unclear. 8. Severe iron deficiency. 9. Possible subclinical hyperthyroidism with elevated thyroxine level. 10. A+ blood type. 11. History of moderate mitral regurgitation. 12. History of mild pulmonary arterial hypertension. 13. Abnormal EKG with nonspecific ST changes. 14. Morbid obesity with elevated body mass index of 47. 15. Bibasilar atelectasis, scarring and intralobular septal thickening with bilateral pulmonary mosaic pattern. 16. Cardiomegaly. 17. Coronary artery calcification. 18. Moderate-sized hiatal hernia. 19. Calcified cholelithiasis. 20. Elevated right hemidiaphragm. 21. Hypertensive cardiovascular disease. 22. 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 1. Severe symptomatic anemia with symptoms of bilateral lower extremity venous stasis, dyspnea on exertion and shortness of breath. 2. Sinus tachycardia. 3. Severe symptomatic anemia, microcytic anemia. 4. Granulocytosis. 5. Elevated reticulocyte count. 6. Elevated D-dimer. 7. Iron-deficiency anemia. 8. Questionable hyperthyroidism with elevated T4 of 12.6. 9. Moderate cardiomegaly. 10. Bibasilar atelectasis scarring with bilateral pulmonary mosaic pattern of the lung parenchyma. 11. Mild interlobular septal thickening. 12. Moderate hiatal hernia. 13. Healing refracture. 14. Calcified cholelithiasis. 15. Elevated right hemidiaphragm. 16. Left ventricular hypertrophy and hypertensive cardiovascular disease. 17. Age indeterminate inferior infarct. 18. Questionable hypertension. Plan at this time, I have discussed the case with Infectious Disease. Infectious Disease has cleared the patient to proceed with endoscopy. I have requested Dr. Hugo Underwood to evaluate for gastrostomy tube placement. The patient has been ordered serial labs. CONSULTATION: 1. Cardiology. 2. Gastroenterology. 3. Infectious Disease. 4. Interventional Radiology. 5. Psychiatry. CURRENT MEDICATIONS: 1. Abilify 5 mg p.o. a.m., hold for sedation. 2. Mucomyst 20% nebulizer every 6 hours with Xopenex nebulizer 0.63 mg every 6 hours. 3. Ativan 2 mg p.o. q. 8 hours. 4. Carafate 1 g twice a day. 5. Drisdol 50,000 units weekly. 6. Flagyl 500 IV q. 8. 7. Folic acid 1 mg daily. 8. K-Dur 20 mEq four times a day. 9. Lasix 40 mg IV q. 12. 10. Lexapro 10 mg daily. 11. Lopressor 25 mg three times a day or q. 8 hours. 12. Cefepime 1 g IV q. 8. 13. Protonix 40 mg IV q. 12. 14. Tamiflu 75 mg twice a day to finish tomorrow. 15. Tessalon Perles 200 three times a day. 16. Tylenol 650 p.o. suppository q. 4 p.r.n. for fever. 17. Vitamin B12 at 1000 mcg IM daily. 18. Xopenex nebulizer 0.63 mg every 6 hours. 19. Zofran 4 mg IV q. 4 p.r.n. Chest physical therapy, oxygen, liquid diet. Elevation of the lower extremity, out of bed, FATOU stockings, sequential compression devices, physical therapy, occupational therapy ordered. At present, the patient is to be continued on the above therapeutic intervention. The patient is awaiting for a gastrostomy tube placement. At present, the patient's further management will be dependent upon the patient's clinical condition, hemodynamic status and as per the patient's response to therapeutic intervention and as per further recommendation by Infectious Disease, Gastroenterology, Psychiatry, Cardiology and Interventional Radiology. Dictated and electronically signed, not read. Nathan Sorensen MD [facility]
[2017-07-26] MEDS: Levalbuterol 0.63 MG/3 ML Inhal Soln UD IH SCH ×4 (04:10→20:05)
[2017-07-26] MEDS: Acetylcysteine 20% Inhal Soln (4ml) IH SCH ×4 (04:10→20:04)
[2017-07-26] MEDS: Sucralfate 1 gm/10 ml Oral Susp UD PO SCH (05:53)
[2017-07-26] MEDS: metroNIDAZOLE IV 500 mg/100 ml 500 MG/100 ML BAG IVPB SCH (06:40)
[2017-07-26] MEDS: Cefepime 1gm in NS 100ml 1 GM/100 ML BAG IVPB SCH (07:02)
[2017-07-26] MEDS: Potassium Chloride 20 mEq ER Tab PO SCH ×4 (08:15→22:16)
--- NOTE | 2017-07-26 10:55 | PN ---
DATE: 07/26/2017 CARDIOLOGY FOLLOWUP SUBJECTIVE: The patient is in a chair without shortness of breath. She is feeling well. PHYSICAL EXAMINATION VITAL SIGNS: Blood pressure is 118/77, the heart rates in the 70s. NECK: Negative JVD. LUNGS: Decreased breath sounds without rales. HEART: Reveals S1 and S2. EXTREMITIES: Decreasing edema. LABORATORY DATA: Hemoglobin is 10.8. Chemistries: BUN and creatinine are unremarkable. IMPRESSION: 1. Status post congestive heart failure. 2. Pedal edema, which is better. 3. Mitral regurgitation. 4. Anemia, which is stable. 5. Status post upper gastrointestinal bleed. PLAN: Given these findings, the patient is doing well on her Lasix. In approximately 6 weeks, we will consider [place] for evaluation repair for mitral valve. Hugo Lockwood MD
--- NOTE | 2017-07-26 12:32 | CP.PCM.PN ---
Subjective - Date & Time of Evaluation Date of Evaluation: 07/26/17 Time of Evaluation: 11:10 - Subjective Subjective: Comfortable on a chair, no fevers, not in distress. Objective - Vital Signs/Intake and Output Vital Signs (last 24 hours): Temp Pulse Resp BP Pulse Ox 98.2 F 70 18 118/77 98 07/25/17 11:11 07/26/17 08:15 07/25/17 11:11 07/26/17 08:15 07/25/17 11:11 Intake and Output: 07/26/17 07/26/17 06:59 18:59 Intake Total 420 Output Total 500 Balance -80 - Medications Medications: Current Medications Acetaminophen (Tylenol 325mg Tab) 650 mg PO Q6H PRN; Protocol PRN Reason: Fever >99.5 F Acetaminophen (Tylenol 650 Mg Supp) 650 mg RC Q4H PRN; Protocol PRN Reason: fever>99.5 F Acetylcysteine (Acetylcysteine 20%) 4 ml IH [id number] [facility] Last Admin: 07/26/17 07:13 Dose: 4 ml Aripiprazole (Abilify) 5 mg PO QAM JEFFERY PRN Reason: Protocol Last Admin: 07/26/17 11:00 Dose: 5 mg Benzonatate (Tessalon Perles) 200 mg PO TID [facility] Last Admin: 07/26/17 11:00 Dose: 200 mg Cyanocobalamin (Vitamin B12 1000 Mcg/Ml Inj) 1,000 mcg IM DAILY JEFFERY PRN Reason: Protocol Stop: 07/27/17 10:00 Last Admin: 07/26/17 11:00 Dose: 1,000 mcg Ergocalciferol (Drisdol 50,000 Intl Units Cap) 1 cap PO Q7D JEFFERY PRN Reason: Protocol Last Admin: 07/20/17 18:38 Dose: 1 cap Escitalopram Oxalate (Lexapro) 10 mg PO DAILY [facility] Last Admin: 07/26/17 11:00 Dose: 10 mg Folic Acid (Folic Acid) 1 mg PO DAILY [facility] Last Admin: 07/26/17 11:35 Dose: 1 mg Furosemide (Lasix) 40 mg IVP 0600,1800 JEFFERY PRN Reason: Protocol Last Admin: 07/26/17 05:53 Dose: 40 mg Pantoprazole Sodium (Protonix 40mg Ivpb) 40 mg in 100 mls @ 200 mls/hr IVPB 0600,1800 [facility] Last Admin: 07/26/17 05:30 Dose: 200 mls/hr Levalbuterol HCl (Xopenex) 0.63 mg IH [id number] [facility] Last Admin: 07/26/17 07:13 Dose: 0.63 mg Lorazepam (Ativan) 2 mg PO Q8H JEFFERY PRN Reason: Protocol Last Admin: 07/26/17 10:45 Dose: 2 mg Metoprolol Tartrate (Lopressor) 25 mg PO 0800,1230,1800 [facility] PRN Reason: Protocol Last Admin: 07/26/17 11:36 Dose: 25 mg Ondansetron HCl (Zofran Inj) 4 mg IVP Q4H PRN PRN Reason: Nausea/Vomiting Last Admin: 07/23/17 11:57 Dose: 4 mg Potassium Chloride (K-Dur 20 Meq Er Tab) 20 meq PO 0730,1230,1800,2200 [facility] PRN Reason: Protocol Last Admin: 07/26/17 11:36 Dose: 20 meq Sucralfate (Carafate Oral Susp) 1 gm PO 0600,1600 [facility] PRN Reason: Protocol Last Admin: 07/26/17 05:53 Dose: 1 gm - Labs Labs: 07/25/17 06:10 07/25/17 06:10 - Constitutional Appears: Non-toxic - Head Exam Head Exam: NORMAL INSPECTION - ENT Exam ENT Exam: Mucous Membranes Moist - Neck Exam Neck Exam: absent: Meningismus - Respiratory Exam Respiratory Exam: Decreased Breath Sounds - Cardiovascular Exam Cardiovascular Exam: +S1, +S2 - GI/Abdominal Exam GI & Abdominal Exam: Soft. absent: Tenderness Assessment and Plan - Assessment and Plan (Free Text) Plan: Assessment S/P Systemic viral illness with Influenza R/O bacterial sepsis from intra-abdominal infection morbid obesity with BMI 42 chronic CHF severe esophagitis chronic anemia S/P appendectomy developmental disability bipolar disorder anxiety cholelithiasis Plan S/P Tamiflu completed 5 days - rapid flu test is positive completed 7 days of Cefepime and Flagyl will continue to monitor clinically off antibiotics discussed with Dr. Sorensen previously
--- NOTE | 2017-07-26 12:56 | PN ---
DATE: 07/26/2017 SUBJECTIVE: The patient is seen in room 304, bed 1. The patient is ambulating in the room to the bedside commode. PHYSICAL EXAMINATION GENERAL: The patient is alert, awake, responsive. Overnight nurse's notes, there was no adverse events documented. VITAL SIGNS: T-max 98.2, pulse 70, blood pressure 118/77, O2 sat 98%. HEAD: Normocephalic, atraumatic. EENT: Shows pinkish conjunctivae. Anicteric sclerae. No oropharyngeal lesion. No neck rigidity. CHEST: Kyphosis. LUNGS: Shows no rales, crackles or wheezing. Decreased breath sound at the bases. CARDIOVASCULAR: Shows S1, S2, regular rhythm. Positive systolic murmur at the left sternal border, right second intercostal space, left second intercostal space. ABDOMEN: Obese, protuberant. Positive bowel sounds. GENITALIA: Female. RECTAL: Deferred. EXTREMITY: Shows chronic nonpitting swelling of the lower extremity. MUSCULOSKELETAL: Shows a body mass index of 42.3. NEUROLOGIC: The patient is alert, awake, responsive; is able to ambulate without assistance. Gait examination is tested. The patient is independently ambulatory. DIAGNOSTICS: From 07/25 reviewed. IMPRESSION: 1. Deconditioning. 2. Gait dysfunction. 3. Morbid obesity. 4. Systemic viral influenza illness. 5. Severe esophagitis and esophageal ulcers. 6. Hypertension. 7. Tachycardia. 8. High-grade fever. 9. Leukopenia. 10. Microcytic anemia. 11. Status post severe symptomatic anemia and status post multiple units of PRBC transfusion. 12. Hypokalemia. 13. Positive influenza A. 14. Hypovitaminosis D. 15. Anxiety, depression. 16. Vitamin B12 deficiency. PLAN: At this time, the patient was seen by Infectious Disease, recommend to stop the IV antibiotics. The patient is to continue on physical therapy, occupational therapy, ambulation therapy. The patient has been ordered repeat labs. Current consultation; Cardiology, Gastroenterology, Infectious Disease, Interventional Radiology and Psychiatry. Current medications: 1. Abilify 5 mg daily. 2. Mucomyst 20% 4 mL nebulizer every 6 hours. 3. Ativan 2 mg q. 8. 4. Carafate 1 g twice. 5. Drisdol 50,000 units weekly. 6. Flagyl 500 is discontinued. 7. K-Dur 20 mEq 4 times a day. 8. Lasix 40 mg IV q. 12. 9. Lexapro 10 mg daily. 10. Lopressor 25 mg q. 8. 11. The Maxipime is stopped. 12. Protonix 40 mg IV q. 12. 13. Tessalon Perles 200 three times a day. 14. Tylenol 650 q. 6 p.r.n. 15. Vitamin B12 1000 mcg IM daily. 16. Xopenex nebulizer 0.63 mg every 6 hours. 17. Zofran 4 mg IV q. 4 hours p.r.n. The patient is to be continued on physical therapy, occupational therapy, ambulation therapy, gait training. The patient will continue on current TCU care until approve number of the days. The patient will be discharged home upon completion of the TCU stay. Dictated and electronically signed, not read. Nathan Sorensen MD
[2017-07-27] MEDS: Acetylcysteine 20% Inhal Soln (4ml) IH SCH ×4 (01:50→19:07)
[2017-07-27] MEDS: Levalbuterol 0.63 MG/3 ML Inhal Soln UD IH SCH ×4 (01:51→19:07)
[2017-07-27] MEDS: Sucralfate 1 gm/10 ml Oral Susp UD PO SCH ×2 (05:27→17:51)
[2017-07-27 06:29] LABS: BASO # 0.02 K/mm3 (0.0-2.0); BASO % 0.3 % (0.0-3.0); EOS # 0.2 (0.0-0.7); EOS % 2.5 % (1.5-5.0); GRAN # 4.92 (1.4-6.5); GRAN % 67.4 % (50.0-68.0); HEMOGLOBIN 12.5 g/dL (12.0-16.0); LYMPH # 1.5 (1.2-3.4); LYMPH % 20.7 % (22.0-35.0); MEAN CELL VOLUME 76.5 fl (80.0-105.0); MEAN CORPUSCULAR HEMOGLOBIN 21.7 pg (25.0-35.0); MEAN CORPUSCULAR HGB CONC 28.4 g/dl (31.0-37.0); MEAN PLATELET VOLUME 9.6 fl (7.0-11.0); MONO # 0.7 (0.1-0.6); MONO % 9.1 % (1.0-6.0); RBC 5.75 10^6/uL (3.5-6.1); RED CELL DISTRIBUTION WIDTH 29.6 % (11.5-14.5); WHITE BLOOD COUNT 7.3 10^3/ul (4.5-11.0)
[2017-07-27 06:41] LABS: ALB/GLOB RATIO 1.4 (1.1-1.8); ALBUMIN 4.3 g/dL (3.0-4.8); ALT/SGPT 27 U/L (7-56); AST/SGOT 28 U/L (14-36); BILIRUBIN,DIRECT 0.4 mg/dL (0.0-0.4); BLOOD UREA NITROGEN 13 mg/dL (7-21); CALCIUM 9.9 mg/dL (8.4-10.5); GFR AFRICAN-AMERICAN > 60; GFR NON-AFRICAN AMERICAN > 60; MAGNESIUM 2.1 mg/dL (1.7-2.2)
[2017-07-27] MEDS: Potassium Chloride 20 mEq ER Tab PO SCH ×4 (08:41→22:08)
[2017-07-27] MEDS: Ergocalciferol 50,000 Intl Units Cap PO SCH (17:51)
--- NOTE | 2017-07-27 22:35 | PN ---
DATE: SUBJECTIVE: This patient was seen and evaluated earlier. The patient is tolerating full liquid diet. She is off the isolation for flu. PHYSICAL EXAMINATION: VITAL SIGNS: Temperature is 97.3, pulse 80, blood pressure is 115/77. HEENT: Atraumatic, anicteric. NECK: Supple. HEART: S1 and S2 heard. LUNGS: Bilateral air entry present. ABDOMEN: Soft. EXTREMITIES: No cyanosis, clubbing. NEUROLOGIC: Alert and oriented. LABORATORY DATA: Hemoglobin 12.5, hematocrit 44, WBC 7.5, platelets 384. Chemistries essentially unremarkable. IMPRESSION: This is a 52-year-old patient with esophageal stricture secondary to left atrial compression, mitral valve disease. The patient had a grade D esophagitis. The patient was admitted with severe anemia, symptomatic. Hemoglobin of 6.1. Now hemoglobin has been stable. The patient is on pantoprazole twice daily. The patient is also on sucralfate twice daily. RECOMMENDATION: There is a concern about adequate calory intake and grade D esophagitis of feeding tube placement. We had a long lengthy discussion with the patient and also the patient's sister. The patient initially was consulted by the Surgery for jejunostomy, felt to be higher risk for jejunostomy. The plan was to do a gastrostomy feeding tube placement. The patient and family are agreeable. I discussed again with the patient's sister at length. The plan is to have gastric tube placed by CT guidance by Dr. Hugo Underwood . We will do the endoscopy to help to inflate the stomach for the procedure. We will coordinate with Dr. Hugo Underwood for arranging this procedure. The patient would also benefit from repeating the endoscopy in 4 to 6 weeks' time, and close followup of the hemoglobin and hematocrit. Thank you very much for allowing us to participate in the care of the patient. Dayron Toledo MD
[2017-07-28] MEDS: Acetylcysteine 20% Inhal Soln (4ml) IH SCH ×4 (01:28→20:20)
[2017-07-28] MEDS: Levalbuterol 0.63 MG/3 ML Inhal Soln UD IH SCH ×4 (01:28→20:20)
[2017-07-28] MEDS: Sucralfate 1 gm/10 ml Oral Susp UD PO SCH ×2 (05:40→16:00)
[2017-07-28] MEDS: Potassium Chloride 20 mEq ER Tab PO SCH ×4 (08:27→21:47)
--- NOTE | 2017-07-28 10:41 | PN ---
DATE: 07/27/2017 SUBJECTIVE: Patient is seen lying in the bed in room 304, bed 1. Overnight nurse's notes were reviewed. Patient was found to be alert, awake, oriented x3. Patient was seen again lying in the bed. Patient was watching TV. PHYSICAL EXAMINATION: VITAL SIGNS: T-max 98.2, 97.9, 97.3; heart rate 90, 116, 88; blood pressure 115/77/, 125/93, 117/79; respiration 20; O2 sat is 98%. Output in the last 24 hours is not documented. HEENT: Head examination, normocephalic, atraumatic. HEENT examination shows pink conjunctivae. Anicteric sclerae. No oropharyngeal lesion. No neck rigidity. CHEST: Kyphosis. LUNGS: Showed decreased breath sound at the left base. No crackles, rales or wheezing. CARDIOVASCULAR: S1, S2, regular rhythm. Positive systolic murmur left sternal border, right second intercostal space, left second intercostal space. ABDOMEN: Morbidly obese. No hepatosplenomegaly palpated. No guarding. No rigidity. No rebound tenderness. GENITALIA: Female. RECTAL: Examination is deferred. EXTREMITIES: Show chronic nonpitting edema of the lower extremity. MUSCULOSKELETAL: Shows a body mass index of 42.3. NEUROLOGIC: The patient is alert, awake, responsive, follows command. Moves upper and lower extremities without assistance. Gait examination is not tested. DIAGNOSTICS: on 07/27, WBC is 7.3, hemoglobin/hematocrit 12.5 and 44, MCV 76, platelet 384. Sodium 146, potassium 3.7, chloride 105, CO2 25, anion gap 20, BUN 13, creatinine 0.7, GFR greater than 60, glucose 117, calcium 9.9, magnesium 2.1. LFTs are negative. Patient is seen by Infectious Disease. Their recommendations were noted. IMPRESSION AND PLAN: 1. Deconditioning. 2. Gait dysfunction. 3. Super morbid obesity with elevated body mass index of 42. 4. Severe symptomatic anemia with symptoms of shortness of breath and bilateral lower extremity swelling and edema. 5. Leukopenia. 6. Microcytic anemia. 7. Status post packed red blood cell transfusion. 8. Hypokalemia. 9. Influenza A systemic viral illness. 10. Status post IV Venofer treatment. 11. Developmentally disabled. 12. History of anxiety, depression. 13. Severe esophageal ulceration and severe esophagitis. 12. Mid esophageal stenosis. Plan at this time, patient has been ordered following medications includin. Abilify 5 mg a.m. 2. Mucomyst 20% 4 mL q. 6 hours. 3. Ativan 2 mg IV p.o. q. 8. 4. Carafate suspension 1 g twice a day. 5. Drisdol 50,000 units weekly. 6. Folic acid 1 mg daily. 7. K-Dur 20 mEq four times a day. 8. Lasix 40 mg IV q. 12. 9. Lexapro 10 mg daily. 10. Lopressor 25 mg three times a day. 11. Protonix 40 mg IV q. 12. 12. Tessalon Perles 200 three times a day. 13. Tylenol 650 q. 6 p.r.n. 14. Xopenex 0.63 mg q. 6 hours. 15. Zofran 4 mg IV q. 4. Chest PT ordered. Out of bed, FATOU stockings, SCDs. At present, according to the TCU nurses information, according to the TCU discharge planning, patient is scheduled for discharge on 07/28. Dictated and electronically signed, not read. Nathan Sorensen MD
--- NOTE | 2017-07-28 11:33 | CP.PCM.PN ---
Subjective - Date & Time of Evaluation Date of Evaluation: 07/27/17 Time of Evaluation: 10:40 - Subjective Subjective: Comfortable in bed, no diarrhea, no fevers. Objective - Vital Signs/Intake and Output Vital Signs (last 24 hours): Temp Pulse Resp BP Pulse Ox 97.9 F 86 19 117/79 95 07/26/17 13:40 07/26/17 13:40 07/26/17 13:40 07/27/17 05:27 07/26/17 13:40 - Medications Medications: Current Medications Acetaminophen (Tylenol 325mg Tab) 650 mg PO Q6H PRN; Protocol PRN Reason: Fever >99.5 F Acetaminophen (Tylenol 650 Mg Supp) 650 mg RC Q4H PRN; Protocol PRN Reason: fever>99.5 F Acetylcysteine (Acetylcysteine 20%) 4 ml IH [id number] [facility] Last Admin: 07/27/17 07:14 Dose: 4 ml Aripiprazole (Abilify) 5 mg PO QAM JEFFERY PRN Reason: Protocol Last Admin: 07/26/17 11:00 Dose: 5 mg Benzonatate (Tessalon Perles) 200 mg PO TID [facility] Last Admin: 07/26/17 17:38 Dose: 200 mg Cyanocobalamin (Vitamin B12 1000 Mcg/Ml Inj) 1,000 mcg IM DAILY JEFFERY PRN Reason: Protocol Stop: 07/27/17 10:00 Last Admin: 07/26/17 11:00 Dose: 1,000 mcg Ergocalciferol (Drisdol 50,000 Intl Units Cap) 1 cap PO Q7D JEFFERY PRN Reason: Protocol Last Admin: 07/20/17 18:38 Dose: 1 cap Escitalopram Oxalate (Lexapro) 10 mg PO DAILY [facility] Last Admin: 07/26/17 11:00 Dose: 10 mg Folic Acid (Folic Acid) 1 mg PO DAILY [facility] Last Admin: 07/26/17 11:35 Dose: 1 mg Furosemide (Lasix) 40 mg IVP 0600,1800 [facility] PRN Reason: Protocol Last Admin: 07/27/17 05:27 Dose: 40 mg Pantoprazole Sodium (Protonix 40mg Ivpb) 40 mg in 100 mls @ 200 mls/hr IVPB 0600,1800 [facility] Last Admin: 07/27/17 05:27 Dose: 200 mls/hr Levalbuterol HCl (Xopenex) 0.63 mg IH [id number] JEFFERY Last Admin: 07/27/17 07:14 Dose: 0.63 mg Lorazepam (Ativan) 2 mg PO Q8H JEFFERY PRN Reason: Protocol Last Admin: 07/27/17 02:04 Dose: 2 mg Metoprolol Tartrate (Lopressor) 25 mg PO 0800,1230,1800 JEFFERY PRN Reason: Protocol Last Admin: 07/26/17 17:40 Dose: 25 mg Ondansetron HCl (Zofran Inj) 4 mg IVP Q4H PRN PRN Reason: Nausea/Vomiting Last Admin: 07/23/17 11:57 Dose: 4 mg Potassium Chloride (K-Dur 20 Meq Er Tab) 20 meq PO 0730,1230,1800,2200 JEFFERY PRN Reason: Protocol Last Admin: 07/26/17 22:16 Dose: 20 meq Sucralfate (Carafate Oral Susp) 1 gm PO 0600,1600 JEFFERY PRN Reason: Protocol Last Admin: 07/27/17 05:27 Dose: 1 gm - Labs Labs: 07/27/17 06:01 07/27/17 06:01 - Constitutional Appears: Chronically Ill - Head Exam Head Exam: NORMAL INSPECTION - ENT Exam ENT Exam: Mucous Membranes Moist - Neck Exam Neck Exam: absent: Meningismus - Respiratory Exam Respiratory Exam: Decreased Breath Sounds - Cardiovascular Exam Cardiovascular Exam: +S1, +S2 - GI/Abdominal Exam GI & Abdominal Exam: Soft. absent: Tenderness Assessment and Plan - Assessment and Plan (Free Text) Plan: Assessment S/P Systemic viral illness with Influenza R/O bacterial sepsis from intra-abdominal infection morbid obesity with BMI 42 chronic CHF severe esophagitis chronic anemia S/P appendectomy developmental disability bipolar disorder anxiety cholelithiasis Plan S/P Tamiflu completed 5 days - rapid flu test is positive completed 7 days of Cefepime and Flagyl will continue to monitor clinically off antibiotics follow up plan for GI tube placement
--- NOTE | 2017-07-28 13:01 | PN ---
DATE: 07/28/2017 CARDIOLOGY FOLLOWUP SUBJECTIVE: The patient is in the TCU, denying shortness of breath. PHYSICAL EXAMINATION VITAL SIGNS: Blood pressure is 122/80, the heart rates in the 90s. NECK: Negative JVD. LUNGS: Bilateral rhonchi without rales. HEART: Reveals S1 and S2 with a soft systolic murmur. EXTREMITIES: Decreasing edema. LABORATORY DATA: Hemoglobin is 12.5. BUN and creatinine are unremarkable. IMPRESSION: 1. Status post congestive heart failure. 2. Mitral regurgitation. 3. Decreasing pedal edema. 4. Anemia. 5. Status post upper gastrointestinal bleed. PLAN: Given these findings, the patient is doing well in the TCU. We will continue her Lasix and change to p.o. Lasix. Hugo Lockwood MD
--- NOTE | 2017-07-28 17:17 | PN ---
DATE: 07/28/2017 SUBJECTIVE: The patient is seen sitting up in the bed in room 304, bed 1. The patient is alert, awake, responsive, does not appear to be in any distress. Thirteen system review was done, pertinent positive and negative as dictated above. The patient's thirteen system review is negative. The patient's vital signs are as follows, which are reviewed in the [facility]. The patient is seen sitting up in the bed. The patient denies any chest pain; denies any headache; denies any blurred vision; denies any nausea, vomiting, diarrhea or constipation; denies any bleeding; denies any hemoptysis, hematemesis, melena; denies any abdominal pain; denies any chest pain. PHYSICAL EXAMINATION: GENERAL: The patient is alert, awake, responsive. VITAL SIGNS: T-max is 97.3, heart rate 94, blood pressure 122/79. HEAD: Normocephalic and atraumatic. EENT: Shows pinkish conjunctivae. Anicteric sclerae. No oropharyngeal lesion. No neck rigidity. LUNGS: No rales, crackles, wheezing or rhonchi noted. Positive kyphosis noted. CARDIOVASCULAR: Shows S1 and S2, regular rhythm. Positive systolic murmur at the left sternal border, right second intercostal space and left second intercostal space. ABDOMEN: Obese. Positive bowel sounds. No hepatosplenomegaly palpated. GENITALIA: Female. RECTAL: Deferred. EXTREMITY: Shows chronic nonpitting swelling of the lower extremity. MUSCULOSKELETAL: Shows an elevated body mass index of 43. Gait examination is independent. NEUROLOGIC: The patient is alert, awake, and responsive. DIAGNOSTIC: The patient's diagnostic from 07/27/2017 were reviewed. The patient was seen by Gastroenterology and Infectious Disease over the weekend. Their recommendation was noted. The recommendation by Gastroenterology has been explained and reinforced to the patient and the patient's sister. The patient is supposed to be scheduled for a gastrostomy tube placement under the supervision of shellfish meat separator operator and interventional radiologist, possibly CAT scan guided. The patient was seen by Infectious Disease. Their recommendation was noted. IMPRESSION: 1. Deconditioning. 2. Gait dysfunction. 3. Status post severe symptomatic anemia. 4. Status post multiple packed red blood cell transfusions. 5. Hypertension. 6. Morbid obesity. 7. Normocytic anemia. 8. Microcytic anemia. 9. Leukopenia. 10. Status post packed red blood cell transfusion. 11. Hypokalemia. 12. Positive influenza A systemic viral illness (resolved). 13. Status post high-grade fever (resolved). 14. Bilateral lower extremity nonpitting venous stasis. 15. Morbid obesity. 16. [place] grade D severe esophagitis and esophageal ulcer. 17. Developmental disability. 18. Feeding dysfunction secondary to severe [place] grade D esophagitis and esophageal ulcers. 19. Mid esophageal stenosis and narrowing secondary to left ventricular compression and mitral regurgitation. 20. History of anxiety and depression. 21. Hypovitaminosis D. 22. Tachycardia. PLAN: At this time, the patient is awaiting for a CT-guided gastrostomy tube placement with Gastroenterology and Interventional Radiology. Repeat labs ordered. CONSULTATIONS: 1. Cardiology. 2. Gastroenterology. 3. Infectious Disease. 4. Interventional Radiology. 5. Psychiatry. CURRENT MEDICATIONS: 1. Abilify 5 mg in the a.m. 2. Mucomyst 20% 4 mL q.6h. 3. Ativan 2 mg q.8 hours. by Psychiatry. 4. Carafate 1 g twice a day suspension. 5. Drisdol 50,000 units weekly. 6. Folic acid 1 mg daily. 7. K-Dur 20 mEq 4 times a day. 8. Lasix 40 mg p.o. b.i.d., changed to p.o. by Dr. Hugo Lockwood today. 9. Lexapro 10 mg p.o. daily. 10. Lopressor 25 mg q.8 hours. 11. Protonix 40 mg IV q.12h. 12. Tessalon Perles 200 three times a day. 13. Tylenol 650 q.6h. p.r.n. 14. Xopenex 0.63 mg q.6 hours. 15. Zofran 4 mg IV q.4h. p.r.n. Chest PT ordered. Incentive spirometry ordered. The patient is on liquid diet. SCDs, FATOU stockings, occupational therapy, and physical therapy ordered. Dictated and electronically signed, not read. Nathan Sorensen MD
[2017-07-29] MEDS: Levalbuterol 0.63 MG/3 ML Inhal Soln UD IH SCH ×4 (02:00→20:33)
[2017-07-29] MEDS: Acetylcysteine 20% Inhal Soln (4ml) IH SCH ×4 (02:00→20:33)
[2017-07-29] MEDS: Sucralfate 1 gm/10 ml Oral Susp UD PO SCH ×2 (05:35→17:06)
[2017-07-29 07:00] LABS: BASO # 0.04 K/mm3 (0.0-2.0); BASO % 0.4 % (0.0-3.0); EOS # 0.4 (0.0-0.7); EOS % 3.7 % (1.5-5.0); GRAN # 6.49 (1.4-6.5); GRAN % 68.6 % (50.0-68.0); HEMOGLOBIN 12.9 g/dL (12.0-16.0); LYMPH # 1.6 (1.2-3.4); LYMPH % 17.2 % (22.0-35.0); MEAN CELL VOLUME 77.2 fl (80.0-105.0); MEAN CORPUSCULAR HEMOGLOBIN 22.1 pg (25.0-35.0); MEAN CORPUSCULAR HGB CONC 28.7 g/dl (31.0-37.0); MEAN PLATELET VOLUME 9.4 fl (7.0-11.0); MONO % 10.1 % (1.0-6.0); PLATELET COUNT 471 10^3/uL (120.0-450.0); RBC 5.83 10^6/uL (3.5-6.1); WHITE BLOOD COUNT 9.5 10^3/ul (4.5-11.0)
[2017-07-29 07:40] LABS: ALB/GLOB RATIO 1.4 (1.1-1.8); ALBUMIN 4.2 g/dL (3.0-4.8); ALT/SGPT 28 U/L (7-56); AST/SGOT 29 U/L (14-36); BILIRUBIN,DIRECT 0.4 mg/dL (0.0-0.4); BLOOD UREA NITROGEN 21 mg/dL (7-21); CALCIUM 9.9 mg/dL (8.4-10.5); GFR AFRICAN-AMERICAN > 60; GFR NON-AFRICAN AMERICAN > 60; MAGNESIUM 2.1 mg/dL (1.7-2.2)
[2017-07-29] MEDS ORDERED: Midazolam 2 MG/2 ML VIAL ONE (08:36)
[2017-07-29] MEDS ORDERED: Etomidate 20 mg/10ml Inj IV ONE (08:44)
[2017-07-29] MEDS ORDERED: Lactated Ringer's 1,000 ML IV SCH (09:45)
[2017-07-29] MEDS: Potassium Chloride 20 mEq ER Tab PO SCH ×4 (11:21→22:04)
[2017-07-29] MEDS ORDERED: Morphine 2 mg/ml ISec IVP STA (11:32)
--- NOTE | 2017-07-30 01:16 | PN ---
DATE: SUBJECTIVE: Patient was seen in the recovery room after having a gastrostomy tube placed. Patient's sister is at bedside. Patient is found to be comfortable, alert, awake, responsive. Patient was later on seen again in room 304, bed 1. Patient was seen lying in the bed. Patient was comfortable. Patient tolerated the gastrostomy tube placement. PHYSICAL EXAMINATION: VITAL SIGNS: T-max in the last 24 hours was 98.3. Heart rate in the last 24 hours was 70, 84, 87, and 90. Blood pressure in the last 24 hours averaging 120/72, 122/77, 121/75. Respiration 18, O2 sat averaging in the mid to low 90s. Intake and output, not documented. HEENT: Head examination normocephalic, atraumatic. HEENT examination shows pink conjunctivae. Anicteric sclerae. No oropharyngeal lesion. No neck rigidity. CHEST: Kyphosis. LUNGS: Shows no rales, crackles or wheezing. CARDIOVASCULAR: Shows S1, S2, regular rhythm. Positive systolic murmur left sternal border, right second intercostal space, left second intercostal space. ABDOMEN: Obese. Positive bowel sound. Positive gastrostomy tube noted with dressing. No hepatosplenomegaly noted. No guarding noted. No rigidity. No rebound tenderness. GENITALIA: Female. RECTAL: Examination is deferred. EXTREMITIES: Show nonpitting swelling of the lower extremity. MUSCULOSKELETAL: Shows a body mass index of 43. DIAGNOSTICS: On 07/29, WBC 9.5, hemoglobin/hematocrit 13 and 45, MCV 77, platelet 471. Sodium 144, potassium 4.4, chloride 106, CO2 24, anion gap 19, BUN 21, creatinine 0.8. GFR greater than 60, glucose 117, calcium 9.9, magnesium 2.1. LFTs are normal. Patient underwent placement of endoscopic-assisted gastric insufflation and gastric tube placement, which patient tolerated the procedure well. IMPRESSION AND PLAN: 1. Status post endoscopic-assisted gastric insufflation for gastric tube placement. 2. Wolfe grade D esophagitis and esophageal ulcers with esophageal narrowing and stenosis secondary to extrinsic compression at 24 cm level. 3. Wolfe grade C esophagitis at the lower third of esophagus. 4. A 5-cm hiatal hernia. 5. Gastric body and gastric antrum erythema. 6. Questionable and possible esophageal stricture secondary to extrinsic compression and esophageal ulceration. 7. Status post fluoroscopy-guided the gastrostomy tube placement. 8. Status post EGD and insertion of gastrostomy tube by Gastroenterology and Interventional Radiology. 9. Deconditioning. 10. Gait dysfunction. 11. Hypertension. 12. Tachycardia. 13. Morbid obesity. 14. Microcytic anemia. 15. Status post packed red blood cell transfusion. 16. Hypokalemia. 17. High-grade fever with influenza A systemic viral illness. 18. History of depression and anxiety. 19. Hypovitaminosis D. 20. Vitamin B12 deficiency. 21. History of blood loss anemia. 22. Left ventricular ejection fraction of 53% with pulmonary arterial hypertension and right ventricular systolic pressure of 56 mmHg and mildly dilated left ventricle. 23. Mildly dilated left atrium. 24. Thickened aortic valve. 25. Moderate mitral regurgitation with eccentrically located regurgitant jet. 26. Thickened mitral valve. 27. Thickened tricuspid valve with moderate pulmonary arterial hypertension with right ventricular systolic pressure of 56 mmHg. 28. Bilateral lower extremity venous stasis and nonpitting edema. Plan at this time, patient will be readmitted back to TCU. As per the Gastroenterology recommendation, patient will be started on meds and water through the GT tube today and may start G-tube feeding from tomorrow. Patient and patient's sister was advised that the patient needs and Interventional Radiology followup in 2 weeks for dilatation to a large gastrostomy tube placement, which was explained to the patient's sister at length. CURRENT MEDICATIONS: Patient is to be continued on above therapeutic intervention with current medications: 1. Abilify 5 mg daily. 2. Mucomyst 20% 4 mL q. 6 hours. 3. Ativan 2 mg q. 8 hours. 4. Carafate 1 g twice a day. 5. Drisdol 50,000 units weekly. 6. Folic acid 1 mg daily. 7. K-Dur 20 mEq four times a day. 8. Lasix 40 mg twice a day. 9. Lexapro 10 mg daily. 10. Lopressor 25 mg three times a day. 11. Protonix 40 mg IV q. 12. 12. Tessalon Perles 200 three times a day. 13. Tylenol 650 q. 6 hours p.r.n. 14. Vitamin B12 1000 mcg IM every month. 15. Xopenex nebulizer 0.63 mg every 6 hours. 16. Zofran 4 mg IV q. 4 p.r.n. Patient is on oxygen, chest PT, liquid diet. Patient has been ordered occupational therapy, physical therapy. Patient's case will be referred to the nursing for educating the patient and the patient's family for gastrostomy tube feeding. Gastrostomy tube feeding education to patient and family has been ordered. At present, patient will be observed overnight and patient will be considered for discharge tomorrow once stable and cleared by Gastroenterology and Interventional Radiology. Dictated and electronically signed, not read. Nathan Sorensen MD
[2017-07-30] MEDS: Acetylcysteine 20% Inhal Soln (4ml) IH SCH ×4 (03:00→20:52)
[2017-07-30] MEDS: Levalbuterol 0.63 MG/3 ML Inhal Soln UD IH SCH ×4 (03:00→20:52)
--- NOTE | 2017-07-30 03:46 | PN ---
DATE: 07/29/2017 This 52-year-old patient had a feeding tube placement. The patient was admitted with symptomatic anemia. The patient had an endoscopy that showed grade D esophageal ulceration with stricture at the level of the 24 cm from the incisor. The stricture is probably secondary to the extrinsic compression from the mitral valve disease, mitral regurgitation, and the left atrial enlargement. The patient was found to have a mitral valve disease, requiring probably surgical intervention. The concern is in view of this grade D esophagitis that needs to be treated. The patient had a swallowing evaluation done. The swallowing function appeared to be appropriate. The patient could be able to tolerate the regular consistency. But the real problem is, because of significant stricture, the patient cause stasis ulceration due to regular food.The patient's esophageal ulceration appeared to be progressively worsening. The patient's valvular disease needs to be treated; however, the distribution warehouse manager felt that the esophageal ulceration has to heal before they consider further workup. Transesophageal echocardiogram could not be done in view of this esophageal ulceration. The patient is being followed by distribution warehouse manager . The patient's soft iron inspector note was reviewed. The patient was taking clear liquid diet and also Pro-Stat twice daily and Ensure Clear twice daily. We will discuss with the soft iron inspector regarding the supplemental feeding through the G-tube. In view of this stricture of the esophagus, the patient cannot take solid food at the present time. We need wait for the healing of the ulcers and cardiac intervention before we start resuming p.o. diet. During this period, the patient needs to be on a G-tube feeding to allow the ulcer to heal. Discussed with [facility] medical social worker at length earlier Thank you very much for allowing me to participate in the care of the patient. Dayron Toledo MD MILLIE
[2017-07-30] MEDS: Sucralfate 1 gm/10 ml Oral Susp UD PO SCH ×2 (05:43→18:09)
--- NOTE | 2017-07-30 08:58 | PN ---
DATE: 07/29/2017 CARDIOLOGY FOLLOWUP SUBJECTIVE: The patient is without shortness of breath. PHYSICAL EXAMINATION VITAL SIGNS: Blood pressure is 120/72, the heart rates in the 80s. NECK: Negative JVD. LUNGS: Without rales. Positive rhonchi. HEART: Reveals II/ systolic ejection murmur. EXTREMITIES: Decreasing edema. LABORATORY DATA: Hemoglobin is 12.9. Chemistries: Potassium is 4.4. IMPRESSION: 1. Resolution of congestive heart failure. 2. Mitral regurgitation. 3. Increasing left ventricle size with normal left ventricular function. 4. Anemia. 5. Severe esophagitis. PLAN: Given these findings, the patient is scheduled for gastrostomy feeding tube placement today. Hugo Lockwood MD
[2017-07-30] MEDS: Potassium Chloride 20 mEq ER Tab PO SCH ×4 (10:44→22:37)
--- NOTE | 2017-07-30 14:04 | PN ---
DATE: 07/30/2017 LOCATION: The patient is seen in room 304. SUBJECTIVE: Patient is sitting up in the bed. Patient is awake. Patient is able to stand independently. Overnight nurse's notes were reviewed. No adverse events were documented. Patient was seen by speech therapist. Recommend to avoid food related to GERD. Maintain GERD precautions. PHYSICAL EXAMINATION: VITAL SIGNS: T-max 98.1, heart rate 87, 92; blood pressure 121/75, 127/77; respirations 18, O2 sat is 96, 92, 94, 98%. INTAKE/OUTPUT: Not documented. HEENT: Head: Normocephalic, atraumatic. HEENT examination shows pink conjunctivae, anicteric sclerae. No oropharyngeal lesion. NECK: No neck rigidity. CHEST: Kyphosis. LUNGS: Shows no rales, crackles or wheezing. CARDIOVASCULAR: S1, S2, regular rhythm. Positive systolic murmur at left sternal border, right second intercostal space, left second intercostal space. ABDOMEN: Obese, positive bowel sounds. Positive gastrotomy tube with dressing secured. No bleeding noted. No hepatosplenomegaly noted. No guarding. No rigidity. No rebound tenderness. GENITALIA: Female. RECTAL: Deferred. EXTREMITIES: Shows non-pitting swelling of the lower extremities. MUSCULOSKELETAL: Shows a body mass index of 42.3. NEUROLOGICAL: The patient is alert, awake, oriented x3. Cranial nerves II-XII intact. Gait examination is independent. VASCULAR: Palpable pulses. PSYCHIATRIC: Positive for history of anxiety, depression. LABORATORY DATA: Diagnostics from 07/29/2017 reviewed. IMPRESSION: 1. Feeding dysfunction. 2. Severe esophageal ulceration, Ward grade D esophagitis. 3. Midesophageal narrowing stenosis versus stricture at 24 cm from incisor secondary to extrinsic compression from mitral valvular disease and left ventricular and left atrial enlargement. 4. Esophageal stasis ulceration secondary to severe esophagitis. 5. Feeding dysfunction secondary to esophagitis and esophageal ulcer. 6. Gastrostomy requiring feeding dysfunction and severe Ward grade D and grade C esophagitis and esophageal ulcer. 7. Hypertension. 8. Obesity. 9. Tachycardia. 10. Leukopenia. 11. Microcytic anemia. 12. Possible blood loss anemia. 13. Hypokalemia. 14. Iron-deficiency microcytic anemia. 15. Systemic viral illness secondary to influenza A. 16. Status post endoscopic-assistance gastric insufflation for gastrostomy tube placement. PLAN: At this time, the patient is to be started on gastrostomy tube feeding as per recommendation of Gastroenterology with Ensure Clear twice daily and ProStat twice daily. Patient's sister has been involved in the patient's gastrostomy tube feeding. Patient will be discharged upon completion of the gastrostomy feeding and stabilization of the gastrostomy placement status. Patient's case discharge planning discussed extensively with Sap Business Analyst. Patient will be discharged once cleared by Gastroenterology and Interventional Radiology and once the patient's feeding has been started through the gastrostomy. Patient's sister has been extensively explained about the details of her medical condition by the Sap Business Analyst and by the nurses and by me. Dictated and electronically signed, not read. Nathan Sorensen MD
--- NOTE | 2017-07-30 14:34 | CP.PCM.PN ---
<Tracy Timmons - Last Filed: 07/30/17 14:34> Subjective - Date & Time of Evaluation Date of Evaluation: 07/30/17 Time of Evaluation: 07:00 - Subjective Subjective: GI Progress Note Dr. Toledo Pt seen and examined at bedside. No acute complaints at this time. Pt tolerated PEG placement well. No acute or adverse events as per nursing staff. Pt noted that she is moving her bowels and bladder regularly. Pt denied fever chills, sob , chest pains, abdominal pains, nausea, vomiting, diarrhea or constipation. Objective - Vital Signs/Intake and Output Vital Signs (last 24 hours): Temp Pulse Resp BP Pulse Ox 98.7 F 92 H 20 126/70 95 07/30/17 10:00 07/30/17 10:00 07/30/17 10:00 07/30/17 10:43 07/30/17 10:00 Intake and Output: 07/30/17 07/30/17 06:59 18:59 Intake Total 480 0 Balance 480 0 - Medications Medications: Current Medications Acetaminophen (Tylenol 325mg Tab) 650 mg PO Q6H PRN; Protocol PRN Reason: Fever >99.5 F Last Admin: 07/29/17 19:59 Dose: 650 mg Acetaminophen (Tylenol 650 Mg Supp) 650 mg RC Q4H PRN; Protocol PRN Reason: fever>99.5 F Acetylcysteine (Acetylcysteine 20%) 4 ml IH [id number] [facility] Last Admin: 07/30/17 14:08 Dose: 4 ml Aripiprazole (Abilify) 5 mg PO QAM [facility] PRN Reason: Protocol Last Admin: 07/30/17 10:44 Dose: 5 mg Benzonatate (Tessalon Perles) 200 mg PO TID [facility] Last Admin: 07/30/17 14:04 Dose: 200 mg Cyanocobalamin (Vitamin B12 1000 Mcg/Ml Inj) 1,000 mcg IM Q30D [facility] Stop: 07/24/18 10:01 Ergocalciferol (Drisdol 50,000 Intl Units Cap) 1 cap PO Q7D [facility] PRN Reason: Protocol Last Admin: 07/27/17 17:51 Dose: 1 cap Escitalopram Oxalate (Lexapro) 10 mg PO DAILY [facility] Last Admin: 07/30/17 10:44 Dose: 10 mg Folic Acid (Folic Acid) 1 mg PO DAILY [facility] Last Admin: 07/30/17 10:43 Dose: 1 mg Furosemide (Lasix) 40 mg PO BID [facility] Last Admin: 07/30/17 10:43 Dose: 40 mg Pantoprazole Sodium (Protonix 40mg Ivpb) 40 mg in 100 mls @ 200 mls/hr IVPB 0600,1800 [facility] Last Admin: 07/30/17 05:43 Dose: 200 mls/hr Levalbuterol HCl (Xopenex) 0.63 mg IH [id number] [facility] Last Admin: 07/30/17 14:08 Dose: 0.63 mg Lorazepam (Ativan) 2 mg PO Q8H [facility] PRN Reason: Protocol Last Admin: 07/30/17 10:47 Dose: 2 mg Metoprolol Tartrate (Lopressor) 25 mg PO 0800,1230,1800 [facility] PRN Reason: Protocol Last Admin: 07/30/17 12:04 Dose: 25 mg Ondansetron HCl (Zofran Inj) 4 mg IVP Q4H PRN PRN Reason: Nausea/Vomiting Last Admin: 07/30/17 08:13 Dose: 4 mg Potassium Chloride (K-Dur 20 Meq Er Tab) 20 meq PO 0730,1230,1800,2200 [facility] PRN Reason: Protocol Last Admin: 07/30/17 14:04 Dose: 20 meq Sucralfate (Carafate Oral Susp) 1 gm PO 0600,1600 [facility] PRN Reason: Protocol Last Admin: 07/30/17 05:43 Dose: 1 gm - Labs Labs: 07/29/17 06:30 07/29/17 06:30 - Constitutional Appears: No Acute Distress - Head Exam Head Exam: ATRAUMATIC, NORMAL INSPECTION, NORMOCEPHALIC - Eye Exam Eye Exam: EOMI, Normal appearance, PERRL Pupil Exam: NORMAL ACCOMODATION, PERRL - ENT Exam ENT Exam: Mucous Membranes Moist - Neck Exam Neck Exam: Full ROM, Normal Inspection. absent: Lymphadenopathy - Respiratory Exam Respiratory Exam: Clear to Ausculation Bilateral, NORMAL BREATHING PATTERN - Cardiovascular Exam Cardiovascular Exam: REGULAR RHYTHM, +S1, +S2. absent: Murmur - GI/Abdominal Exam GI & Abdominal Exam: Soft, Normal Bowel Sounds. absent: Tenderness Additional comments: PEG in place - Neurological Exam Neurological Exam: Alert, Awake, CN II-XII Intact, Oriented x3 - Psychiatric Exam Psychiatric exam: Normal Affect, Normal Mood - Skin Skin Exam: Dry, Intact, Normal Color, Warm Assessment and Plan - Assessment and Plan (Free Text) Assessment: Anemia, s/p blood transfusion Esophageal ulcers, S/P EGD found LA grade D esophagitis Esophageal stricture secondary to extrinsic compression GERD Bipolar disorder Bilateral lower extremity edema, lower extremity Doppler negative Plan: Continue Protonix 40 every 12 On Carafate liquid on Jevity, will start with 1can q4 with 50ml water flush before and after meals , for a goal of 6 cans/day Monitor H&H cardiology FU G-tube placed, continue with feeds and monitor tolerance Seen and discussed with Dr. Toledo. <Dayron Toledo V - Last Filed: 07/30/17 22:53> Objective - Vital Signs/Intake and Output Vital Signs (last 24 hours): Temp Pulse Resp BP Pulse Ox 98.5 F 96 H 20 142/70 94 L 07/30/17 16:25 07/30/17 16:25 07/30/17 16:25 07/30/17 18:09 07/30/17 16:25 Intake and Output: 07/30/17 07/31/17 18:59 06:59 Intake Total 0 Balance 0 - Medications Medications: Current Medications Acetaminophen (Tylenol 325mg Tab) 650 mg PO Q6H PRN; Protocol PRN Reason: Fever >99.5 F Last Admin: 07/29/17 19:59 Dose: 650 mg Acetaminophen (Tylenol 650 Mg Supp) 650 mg RC Q4H PRN; Protocol PRN Reason: fever>99.5 F Acetylcysteine (Acetylcysteine 20%) 4 ml IH [id number] [facility] Last Admin: 07/30/17 20:52 Dose: 4 ml Aripiprazole (Abilify) 5 mg PO QAM [facility] PRN Reason: Protocol Last Admin: 07/30/17 10:44 Dose: 5 mg Benzonatate (Tessalon Perles) 200 mg PO TID [facility] Last Admin: 07/30/17 18:10 Dose: 200 mg Cyanocobalamin (Vitamin B12 1000 Mcg/Ml Inj) 1,000 mcg IM Q30D [facility] Stop: 07/24/18 10:01 Ergocalciferol (Drisdol 50,000 Intl Units Cap) 1 cap PO Q7D [facility] PRN Reason: Protocol Last Admin: 07/27/17 17:51 Dose: 1 cap Escitalopram Oxalate (Lexapro) 10 mg PO DAILY [facility] Last Admin: 07/30/17 10:44 Dose: 10 mg Folic Acid (Folic Acid) 1 mg PO DAILY [facility] Last Admin: 07/30/17 10:43 Dose: 1 mg Furosemide (Lasix) 40 mg PO BID [facility] Last Admin: 07/30/17 18:09 Dose: 40 mg Pantoprazole Sodium (Protonix 40mg Ivpb) 40 mg in 100 mls @ 200 mls/hr IVPB 0600,1800 [facility] Last Admin: 07/30/17 18:09 Dose: 200 mls/hr Levalbuterol HCl (Xopenex) 0.63 mg IH [id number] [facility] Last Admin: 07/30/17 20:52 Dose: 0.63 mg Lorazepam (Ativan) 2 mg PO Q8H [facility] PRN Reason: Protocol Last Admin: 07/30/17 18:55 Dose: Not Given Metoprolol Tartrate (Lopressor) 25 mg PO 0800,1230,1800 [facility] PRN Reason: Protocol Last Admin: 07/30/17 18:10 Dose: 25 mg Ondansetron HCl (Zofran Inj) 4 mg IVP Q4H PRN PRN Reason: Nausea/Vomiting Last Admin: 07/30/17 14:34 Dose: 4 mg Potassium Chloride (K-Dur 20 Meq Er Tab) 20 meq PO 0730,1230,1800,2200 [facility] PRN Reason: Protocol Last Admin: 07/30/17 22:37 Dose: 20 meq Sucralfate (Carafate Oral Susp) 1 gm PO 0600,1600 [facility] PRN Reason: Protocol Last Admin: 07/30/17 18:09 Dose: 1 gm - Labs Labs: 07/29/17 06:30 07/29/17 06:30 Attending/Attestation - Attestation I have personally seen and examined this patient.: Yes I have fully participated in the care of the patient.: Yes I have reviewed all pertinent clinical information, including history, physical exam and plan: Yes Notes (Text): This is an addendum to GI consult report dictated by the Verifier Operator.The patient was seen and examined earlier. Medical records, lab studies, imagings were reviewed. Last 24 hours events reviewed. Agreed with the above treatment plan as outlined in Verifier Operator 's notes the with the addition of the following discussed with the patient's sister at length on examination abdomen soft with G-tube in place I explained to patient's sister clearly that patient can have a clear liquid diet in addition to the G-tube feeding however she can not have at the Same Time of the Tube Feeding Patient Needs to Continue High-Dose PPI would need interventional radiology follow-up for upsizing the G-tube from 14- 16 or 18 in 2 weeks' time Recommend Repeat Endoscopy in 6 Weeks' Time 07/30/17 22:48
[2017-07-31] MEDS: Acetylcysteine 20% Inhal Soln (4ml) IH SCH ×4 (01:41→20:06)
[2017-07-31] MEDS: Levalbuterol 0.63 MG/3 ML Inhal Soln UD IH SCH ×4 (01:43→20:06)
[2017-07-31] MEDS: Sucralfate 1 gm/10 ml Oral Susp UD PO SCH ×2 (05:11→16:38)
[2017-07-31] MEDS: Potassium Chloride 20 mEq ER Tab PO SCH ×4 (08:41→21:29)
--- NOTE | 2017-07-31 11:08 | CP.PCM.PN ---
Subjective - Date & Time of Evaluation Date of Evaluation: 07/31/17 Time of Evaluation: 10:00 - Subjective Subjective: S&E at bedside, chart reviewed. Started G -tube feeding yesterday, patient had episodes of nausea and vomiting. No blood, undigested tube feeding as per nursing. As per nursing attempted to give patient a total of 5-6 cans yesterday. This am tolerated 1 can but hav some nausea, no vomiting, No SOB, CP , fever or chills. Some discomfort at G-tube site. No diarrhea. Objective - Vital Signs/Intake and Output Vital Signs (last 24 hours): Temp Pulse Resp BP Pulse Ox 98.5 F 70 20 120/84 94 L 07/30/17 16:25 07/31/17 08:42 07/30/17 16:25 07/31/17 09:12 07/30/17 16:25 Intake and Output: 07/31/17 07/31/17 06:59 18:59 Intake Total 240 Output Total 300 Balance -60 - Medications Medications: Current Medications Acetaminophen (Tylenol 325mg Tab) 650 mg PO Q6H PRN; Protocol PRN Reason: Fever >99.5 F Last Admin: 07/31/17 09:16 Dose: 650 mg Acetaminophen (Tylenol 650 Mg Supp) 650 mg RC Q4H PRN; Protocol PRN Reason: fever>99.5 F Acetylcysteine (Acetylcysteine 20%) 4 ml IH [id number] [facility] Last Admin: 07/31/17 07:26 Dose: 4 ml Aripiprazole (Abilify) 5 mg PO QAM [facility] PRN Reason: Protocol Last Admin: 07/31/17 09:11 Dose: 5 mg Benzonatate (Tessalon Perles) 200 mg PO TID [facility] Last Admin: 07/31/17 09:12 Dose: 200 mg Cyanocobalamin (Vitamin B12 1000 Mcg/Ml Inj) 1,000 mcg IM Q30D [facility] Stop: 07/24/18 10:01 Ergocalciferol (Drisdol 50,000 Intl Units Cap) 1 cap PO Q7D [facility] PRN Reason: Protocol Last Admin: 07/27/17 17:51 Dose: 1 cap Escitalopram Oxalate (Lexapro) 10 mg PO DAILY [facility] Last Admin: 07/31/17 09:12 Dose: 10 mg Folic Acid (Folic Acid) 1 mg PO DAILY [facility] Last Admin: 07/31/17 09:12 Dose: 1 mg Furosemide (Lasix) 40 mg PO BID [facility] Last Admin: 07/31/17 09:12 Dose: 40 mg Pantoprazole Sodium (Protonix 40mg Ivpb) 40 mg in 100 mls @ 200 mls/hr IVPB 0600,1800 [facility] Last Admin: 07/31/17 05:10 Dose: 200 mls/hr Levalbuterol HCl (Xopenex) 0.63 mg IH [id number] [facility] Last Admin: 07/31/17 07:26 Dose: 0.63 mg Lorazepam (Ativan) 2 mg PO Q8H [facility] PRN Reason: Protocol Last Admin: 07/31/17 10:44 Dose: Not Given Metoprolol Tartrate (Lopressor) 25 mg PO 0800,1230,1800 [facility] PRN Reason: Protocol Last Admin: 07/31/17 08:42 Dose: 25 mg Ondansetron HCl (Zofran Inj) 4 mg IVP Q4H PRN PRN Reason: Nausea/Vomiting Last Admin: 07/30/17 14:34 Dose: 4 mg Potassium Chloride (K-Dur 20 Meq Er Tab) 20 meq PO 0730,1230,1800,2200 [facility] PRN Reason: Protocol Last Admin: 07/31/17 08:41 Dose: 20 meq Sucralfate (Carafate Oral Susp) 1 gm PO 0600,1600 [facility] PRN Reason: Protocol Last Admin: 07/31/17 05:11 Dose: 1 gm - Labs Labs: 07/29/17 06:30 07/29/17 06:30 - Constitutional Appears: No Acute Distress - Head Exam Head Exam: NORMOCEPHALIC - Eye Exam Eye Exam: Normal appearance. absent: Scleral icterus - ENT Exam ENT Exam: Mucous Membranes Moist - Neck Exam Neck Exam: Normal Inspection - Respiratory Exam Respiratory Exam: NORMAL BREATHING PATTERN. absent: Respiratory Distress - Cardiovascular Exam Cardiovascular Exam: +S1, +S2 - GI/Abdominal Exam GI & Abdominal Exam: Soft, Tenderness (mild tenderness, no rebound or guarding) , Normal Bowel Sounds. absent: Guarding, Rebound Additional comments: Gtube in tact. - Extremities Exam Extremities Exam: absent: Calf Tenderness - Neurological Exam Neurological Exam: Alert, Awake, Oriented x3 Assessment and Plan - Assessment and Plan (Free Text) Assessment: Assessment: S/P Influenza Anemia, s/p blood transfusion Esophageal ulcers, S/P EGD found LA grade D esophagitis Esophageal stricture secondary to extrinsic compression Mitral Regurgitation GERD Bipolar disorder Bilateral lower extremity edema, lower extremity Doppler negative Plan: Continue Protonix 40 every 12 On Carafate liquid Monitor H&H and for overt GI bleed monitor H/h for overt GI bleeding. cardiology FU on Bolus feeding of Jevity 1 can Q 4 hrs, with 50 ml flush after meals goal is 6cans/day but gradually increase , today recommend 4 can total and if tolerated can increase 1 can /day. Patient has significant esophageal stricture with ulceration , in view of slow healing process who also had urgent cardiac evaluation, recommend patient to be NPO, sips of liquid only but G- tube to be mainly used. Seen and discussed with Dr. Toledo.
[2017-08-01] MEDS: Acetylcysteine 20% Inhal Soln (4ml) IH SCH ×2 (02:00→07:32)
[2017-08-01] MEDS: Levalbuterol 0.63 MG/3 ML Inhal Soln UD IH SCH ×2 (02:00→07:32)
[2017-08-01] MEDS: Sucralfate 1 gm/10 ml Oral Susp UD PO SCH (05:28)
--- NOTE | 2017-08-01 08:26 | DS ---
FINAL PROGRESS NOTE AND DISCHARGE SUMMARY HISTORY OF PRESENT ILLNESS: Patient is seen lying in the bed in room 304, bed 1. Yesterday, patient had some nausea, but patient was given Zofran with resolution of the nausea. Patient is today seen lying in the bed again. Patient was advised to be out of bed to chair and walk and ambulate. PHYSICAL EXAMINATION: VITAL SIGNS: T-max 98.4; heart rate 70, 98, 96, 92; blood pressure 115/73, 120/74, 120/84; respiration 18; O2 sat 95%. HEENT: Head examination normocephalic, atraumatic. HEENT examination shows pink conjunctivae. Anicteric sclerae. No oropharyngeal lesion. No neck rigidity. CHEST: Kyphosis. LUNGS: Shows no rales, crackles or wheezing. CARDIOVASCULAR: Examination S1, S2, regular rhythm. Positive systolic murmur left sternal border, right second intercostal space, left second costal space. ABDOMEN: Obese. Positive bowel sound, positive gastrostomy tube noted with clean dressing. NEUROLOGIC: Patient is alert, awake, responsive, oriented x3. Cranial nerves II through XII intact. Gait examination is independent. EXTREMITIES: Lower extremity shows nonpitting swelling of the lower extremity. Musculoskeletal: Examination shows a body mass index of 39. DIAGNOSTICS: From 07/29 noted. IMPRESSION AND PLAN: 1. Deconditioning. 2. Gait dysfunction. 3. Feeding dysfunction secondary to severe esophagitis, esophageal ulcer and esophageal narrowing and secondary to external compression, secondary to mitral regurgitation and left atrial and left ventricular enlargement. 4. Questionable gastroparesis. 5. Nausea, possibly secondary to gastroparesis. 6. Influenza A systemic viral illness. 7. Anemia, status post multiple units of packed red blood cell transfusion. 8. Sawyer grade D esophagitis and esophageal ulcers. 9. Mitral regurgitation. 10. Status post gastrostomy tube placement. Plan at this time, patient will be discharged after clearance by Gastroenterology. As per Gastroenterology, patient needs Jevity 1 can every 4 hours with 50 mL of flush after each Jevity can to a goal of 6 cans per day with gradual increase. On day 1, Gastroenterology recommends 4 cans of Jevity through the gastrostomy tube total and increasing by 1 can per day to a goal of 6 cans per day. Patient will be discharged home after Gastroenterology clearance. DISCHARGE MEDICATIONS: 1. Abilify 5 mg daily. 2. Tessalon Perles 200 three times a day. 3. Vitamin B12 1000 mcg IM monthly. 4. Drisdol 50,000 units weekly. 5. Lexapro 10 mg daily. 6. Folic acid 1 mg daily. 7. Lasix 40 mg twice a day. 8. Xopenex nebulizer 0.63 mg every 6 hours. 9. Ativan 2 mg q.i.d. 10. Reglan 5 mg twice a day. 11. Lopressor 25 mg three times a day, 12. Protonix suspension 40 mg twice a day. 13. K-Dur 20 mEq four times a day. 14. Carafate suspension 1 g twice a day. CURRENT MEDICATIONS: 1. Abilify 5 mg daily. 2. Mucomyst nebulizer 20% 4 mL every 6 hours. 3. Ativan 2 mg q. 8. 4. Carafate 1 g twice a day suspension. 5. Drisdol 50,000 units weekly. 6. Folic acid 1 mg daily. 7. K-Dur. 8. Patient is on metoprolol 25 mg three times a day. 9. Protonix 40 mg IV q. 12. 10. Reglan 5 mg for IV push q. 6 hours. 11. Tessalon Perles 200 three times a day. 12. Tylenol 650 q. 6 p.r.n. 13. Vitamin B12 1000 mcg IM monthly. 14. Xopenex nebulizer 0.63 mg every 6 hours. 15. Zofran 4 mg IV q. 4 p.r.n. Patient has already been on above medications. Time spent in the entire discharge process, more than 45 minutes. Patient will be discharged home after cleared by Gastroenterology and Dr. Hugo Underwood. Discharge followup with Dr. Sorensen, Dr. Toledo, Dr. Hugo Underwood, Dr. Lockwood within 1 to 2 weeks and discharge followup with Psychiatry within 1 to 2 weeks. Patient's discharge medications as per updated ambulatory orders plus the new scripts and all the new scripts will be given to the patient and the patient's sister upon discharge. During this hospitalization, patient and the patient's sister were extensively explained about patient's condition, diagnosis, need for close outpatient followup, which they acknowledged and understood. Patient was advised weight loss. Patient was advised strict compliance with medications and diet. Patient and the patient's sister has been extensively explained about the patient's diagnosis, test results, recommendation by all physicians at length and all questions concerned answered. Dictated and electronically signed, not read. Nathan Sorensen MD
[2017-08-01] MEDS: Potassium Chloride 20 mEq ER Tab PO SCH (08:30)
[2017-08-01 09:50] VITALS: BP 142/85
[2017-08-01 11:33] VITALS: PULSE 128; RESP 20; TEMP 98.8; O2SAT 98
--- NOTE | 2017-08-01 19:30 | CP.PCM.PN ---
Subjective - Date & Time of Evaluation Date of Evaluation: 08/01/17 Time of Evaluation: 11:30 - Subjective Subjective: Seen and examined at the bedside earlier today, chart reviewed. Spoke to sister at bedside Erika. Nursing staff went over feeding instructions. Goal is 4/5 cans a day. As per nursing patient tolerated one can prior to my arrival and complained of feeling full. No complaints of nausea or vomiting. Patient denies abdominal pain. Objective - Vital Signs/Intake and Output Vital Signs (last 24 hours): Temp Pulse Resp BP Pulse Ox 98.8 F 128 H 20 142/85 98 08/01/17 10:00 08/01/17 10:00 08/01/17 10:00 08/01/17 10:00 08/01/17 10:00 Intake and Output: 08/01/17 08/01/17 06:59 18:59 Intake Total 420 Output Total 250 Balance 170 - Labs Labs: 07/29/17 06:30 07/29/17 06:30 - Constitutional Appears: No Acute Distress - Head Exam Head Exam: NORMOCEPHALIC - Eye Exam Eye Exam: Normal appearance. absent: Scleral icterus - ENT Exam ENT Exam: Mucous Membranes Moist - Respiratory Exam Respiratory Exam: NORMAL BREATHING PATTERN. absent: Respiratory Distress - Cardiovascular Exam Cardiovascular Exam: +S1, +S2 - GI/Abdominal Exam GI & Abdominal Exam: Soft, Normal Bowel Sounds. absent: Guarding, Tenderness, Rebound Additional comments: positive PEG tube - Extremities Exam Extremities Exam: absent: Calf Tenderness, Pedal Edema - Neurological Exam Neurological Exam: Alert, Awake, Oriented x3 - Skin Skin Exam: Dry, Warm Assessment and Plan - Assessment and Plan (Free Text) Assessment: Assessment: S/P Influenza Anemia, s/p blood transfusion Esophageal ulcers, S/P EGD found LA grade D esophagitis Esophageal stricture secondary to extrinsic compression Mitral Regurgitation GERD Bipolar disorder Bilateral lower extremity edema, lower extremity Doppler negative Plan: Continue PPI On Carafate liquid Monitor H&H and for overt GI bleed monitor H/h for overt GI bleeding. cardiology FU Patient has significant esophageal stricture with ulceration , in view of slow healing process who also had urgent cardiac evaluation, recommend patient to be NPO, sips of liquid only but G- tube to be mainly used. Patient is planned for DC today, detailed discussion with Sister Erika to do one can of Jevity every 6 hours with intermittent in water flushes of 50 mL, current goal per day is 4 cans up to 5 cans. Discussed to gradually increase by half a can a day to one full can if patient can tolerate. The patient is only to have sips of water with medication. Discussed a follow-up in office in 1-2 weeks and to contact our office with any questions or concerns. Seen and discussed with Dr. Toledo
== END 2017-08-01 12:38 | disposition home or self-care (01) | DRG 92 ==
LOC: TRCU 16:12
PROVIDERS: ADMIT Internal Medicine; ATTEND Internal Medicine
PROC: F07Z9ZZ Gait Training/Functional Ambulation Treatment (ICD-10-PCS; principal; 2017-07-21)
PROC: F08Z4ZZ Home Management Treatment (ICD-10-PCS; 2017-07-21)
PROC: 3E0F7GC Introduction of Other Therapeutic Substance into Respiratory Tract, Via Natural or Artificial Opening (ICD-10-PCS; 2017-07-22)
DX: R26.9 Unspecified abnormalities of gait and mobility (principal); K22.10 Ulcer of esophagus without bleeding; K21.0 Gastro-esophageal reflux disease with esophagitis; I27.21 Secondary pulmonary arterial hypertension; I11.0 Hypertensive heart disease with heart failure; E66.01 Morbid (severe) obesity due to excess calories; I50.30 Unspecified diastolic (congestive) heart failure; N39.0 Urinary tract infection, site not specified; Z68.41 Body mass index [BMI] 40.0-44.9, adult; R63.3 Feeding difficulties; K22.2 Esophageal obstruction; K80.20 Calculus of gallbladder without cholecystitis without obstruction; D50.9 Iron deficiency anemia, unspecified; K44.9 Diaphragmatic hernia without obstruction or gangrene; J10.1 Influenza due to other identified influenza virus with other respiratory manifestations; F41.8 Other specified anxiety disorders; F31.9 Bipolar disorder, unspecified; E53.8 Deficiency of other specified B group vitamins; E55.9 Vitamin D deficiency, unspecified; E87.6 Hypokalemia; I34.0 Nonrheumatic mitral (valve) insufficiency; K31.84 Gastroparesis; Z93.1 Gastrostomy status

== ENCOUNTER 2017-07-29 06:53 | Day surgery (SDC) | payer MEDICARE ==
[2017-07-29 07:22] VITALS: RESP 18
[2017-07-29 07:43] LABS: INR 1.2 (0.93-1.08); PROTHROMBIN TIME 13.8 SECONDS (9.4-12.5)
[2017-07-29] MEDS ORDERED: Lidocaine 2% Inj (20ml) ONE (08:14)
[2017-07-29] MEDS ORDERED: HEPARIN SODIUM/NS 1,000 ML IV ONE (08:14)
[2017-07-29] MEDS ORDERED: Iodixanol 320 mg/ml 150 ml Bottle IV ONE (08:14)
[2017-07-29] MEDS ORDERED: cefTRIAXone (Rocephin) 1 gm Inj IVPB ONE (08:50)
[2017-07-29] MEDS ORDERED: Sodium Chloride 0.45% 1,000 ML IV SCH (09:15)
[2017-07-29 10:02] VITALS: TEMP 97.5
[2017-07-29 10:28] VITALS: BP 127/77; PULSE 88; O2SAT 93
--- NOTE | 2017-07-30 13:26 | RAD ---
PROCEDURE: Fluoroscopy up to 1 hr. HISTORY: FEEDING TUBE PLACEMENT COMPARISON: None TECHNIQUE: Standard protocol for this study/examination. FINDINGS: Total fluoroscopic time (continuous mode) utilized during the procedure: 75.0 seconds. IMPRESSION: Total exam DLP: 19.45 mGy per cm
== END 2017-07-29 11:00 ==
LOC: SDSVAS 06:53
PROVIDERS: ATTEND Radiology Vascular & Interventional Radiology
DX: Z46.59 Encounter for fitting and adjustment of other gastrointestinal appliance and device (principal); K22.10 Ulcer of esophagus without bleeding; K20.9 Esophagitis, unspecified; K22.2 Esophageal obstruction; I38 Endocarditis, valve unspecified; D64.9 Anemia, unspecified; K44.9 Diaphragmatic hernia without obstruction or gangrene
CPT/HCPCS: 36415; 43246; 85610; 85730; J0696; J1644; J2405; J7030

== ENCOUNTER 2017-09-15 06:36 | Day surgery (SDC) | payer MEDICARE ==
[2017-09-15] MEDS ORDERED: Lidocaine 2% Inj (20ml) ONE (07:14)
[2017-09-15] MEDS ORDERED: Midazolam 2 MG/2 ML VIAL ONE ×2 (07:14→07:49)
[2017-09-15] MEDS ORDERED: Iodixanol 320 MG/ML 200 ML BOTTLE IV ONE (07:15)
[2017-09-15 08:03] LABS: BASO # 0.02 K/mm3 (0.0-2.0); BASO % 0.3 % (0.0-3.0); BLOOD UREA NITROGEN 14 mg/dL (7-21); CALCIUM 9.4 mg/dL (8.4-10.5); GFR AFRICAN-AMERICAN > 60; GFR NON-AFRICAN AMERICAN > 60; GRAN # 4.73 (1.4-6.5); GRAN % 70.8 % (50.0-68.0); HDL CHOLESTEROL 38 mg/dL (29-60); HEMOGLOBIN 13.9 g/dL (12.0-16.0); LYMPH # 1.2 (1.2-3.4); LYMPH % 17.5 % (22.0-35.0); MEAN CELL VOLUME 82.2 fl (80.0-105.0); MEAN CORPUSCULAR HEMOGLOBIN 26.4 pg (25.0-35.0); MEAN CORPUSCULAR HGB CONC 32.1 g/dl (31.0-37.0); MONO # 0.8 (0.1-0.6); MONO % 11.4 % (1.0-6.0); PLATELET COUNT 197 10^3/uL (120.0-450.0); RBC 5.27 10^6/uL (3.5-6.1); RED CELL DISTRIBUTION WIDTH 19.5 % (11.5-14.5); WHITE BLOOD COUNT 6.7 10^3/ul (4.5-11.0)
[2017-09-15 08:13] LABS: INR 1.15 (0.93-1.08); PARTIAL THROMBOPLASTIN TIME 27.4 Seconds (25.1-36.5); PROTHROMBIN TIME 13.3 SECONDS (9.4-12.5)
[2017-09-15 08:14] LABS: LDL CHOLESTEROL 76 mg/dL (0-129)
[2017-09-15] MEDS ORDERED: Potassium Chloride 20 mEq ER Tab PO ONE (08:22)
[2017-09-15 08:23] VITALS: RESP 18
[2017-09-15] MEDS ORDERED: Eptifibatide 20 mg/10mL Inj IVP ONE (09:21)
[2017-09-15] MEDS ORDERED: Sodium Chloride 0.9% 1,000 ML IV SCH (10:00)
--- NOTE | 2017-09-15 10:24 | CARDCATH ---
PROCEDURE DATE: 09/15/2017 HISTORY: The patient is a 52-year-old woman who presented with an episode of GI bleed as well as CHF. She had documented mitral regurgitation in the past and was found to have a left ventricle that was mildly dilated compared to her previous on echocardiogram. Because of this, cardiac catheterization was recommended. She also was noted to have pulmonary hypertension on echocardiogram. PROCEDURE : Right and left heart catheterization with coronary arteriography, left ventriculogram, supra-aortic valvular injection. The right femoral artery was cannulated with a 6-Spanish sheath. The right femoral vein was cannulated with a 7-Spanish sheath. There were no complications. I performed moderate sedation, which included the presence of an independent trained observer that assisted in monitoring the patient's level of consciousness and physiologic status. After administration of Versed and fentanyl, my intra-service time was 15 minutes. The findings on catheterization revealed a right atrial pressure of 8 mmHg, RV pressures were 27/8 mmHg, pulmonary artery pressures were 29/11 with a mean of 18 mmHg. Mean pulmonary capillary wedge pressure was 8 mmHg. Left ventriculogram was performed in the BENAVIDES projection. In the BENAVIDES projection, there was 1+ to 2+ mitral regurgitation. The left ventricle contracted normally. Ejection fraction was 55 percent Supra-aortic valvular injection revealed no aortic insufficiency. Her coronary anatomy revealed a right dominant circulation. The RCA was within normal limits. The left main artery was unremarkable. The LAD and diagonal vessels were free of significant disease. Circumflex artery and obtuse marginal branches were free of significant disease. Manual compression was used to close the femoral artery site. The patient tolerated the procedure well. In summary, the procedure revealed no pulmonary hypertension. Good LV function with an EF of 55%. No aortic insufficiency. 1+ to 2+ mitral regurgitation. Given these findings, the echocardiogram over-estimated her pulmonary hypertension. In addition, her mitral regurgitation is mild to moderate utmost. Her coronary arteries are normal. Given these findings, we will continue medical therapy to control her blood pressure. We will decrease her Lasix. We will replace her potassium. There is no indication for mitral valve surgery. Hugo Lockwood MD
[2017-09-15 10:25] VITALS: TEMP 98.2
[2017-09-15 14:06] VITALS: BP 129/82; PULSE 89; O2SAT 92
--- NOTE | 2017-09-15 20:29 | CARD ---
APPROVED REPORT EKG Measurement Heart [id number] OR 124P5 [id number] <Conclusion> Normal sinus rhythm Left ventricular hypertrophy with repolarization abnormality Inferior-posterior infarct, age undetermined Abnormal ECG
== END 2017-09-15 17:25 | disposition home or self-care (01) ==
LOC: CATH 06:36
PROVIDERS: ATTEND Internal Medicine Cardiovascular Disease
DX: I25.110 Atherosclerotic heart disease of native coronary artery with unstable angina pectoris (principal); I10 Essential (primary) hypertension; I50.9 Heart failure, unspecified; E66.9 Obesity, unspecified; D64.9 Anemia, unspecified; I34.0 Nonrheumatic mitral (valve) insufficiency; E78.5 Hyperlipidemia, unspecified; K20.9 Esophagitis, unspecified; Z90.49 Acquired absence of other specified parts of digestive tract; I27.20 Pulmonary hypertension, unspecified; K92.2 Gastrointestinal hemorrhage, unspecified
CPT/HCPCS: 36415; 80048; 80061; 85025; 85610; 85730; 86850; 86900; 93005; 93453; 93460; 99152; 99153; C1769; C1887; C1894; C2629; J1644; J2250; J3010; J7040 ×2; Q9966

== ENCOUNTER 2017-09-19 07:49 | Day surgery (SDC) | payer MEDICARE ==
[2017-09-19 08:35] LABS: BLOOD UREA NITROGEN 9 mg/dL (7-21); CALCIUM 9.6 mg/dL (8.4-10.5); GFR AFRICAN-AMERICAN > 60; GFR NON-AFRICAN AMERICAN > 60
[2017-09-19] MEDS ORDERED: Midazolam 2 MG/2 ML VIAL ONE ×2 (10:00→10:30)
[2017-09-19] MEDS ORDERED: Lidocaine 2% Inj (20ml) ONE (10:00)
[2017-09-19] MEDS ORDERED: Iodixanol 320 MG/ML 100 ML BOTTLE IV ONE (10:22)
[2017-09-19] MEDS ORDERED: Oxycodone/Acetaminophen 5/325 mg Tab PO PRN (11:08)
[2017-09-19] MEDS ORDERED: Sodium Chloride 0.45% 1,000 ML IV SCH (11:15)
[2017-09-19] MEDS ORDERED: Oxycodone/Acetaminophen 5/325 mg Tab ONE (11:38)
[2017-09-19] MEDS ORDERED: Oxycodone/Acetaminophen 5/325 mg Tab PO ONE (11:39)
[2017-09-19 11:47] VITALS: O2SAT 97
[2017-09-19 12:02] VITALS: PULSE 75; RESP 18; TEMP 98.3
[2017-09-19 13:05] VITALS: BP 124/70
--- NOTE | 2017-09-19 13:24 | VASCULAR ---
PROCEDURE: 1. Gastrostomy tube change HISTORY: Esophageal stricture. Malnutrition. Needs gastrostomy tube change. PHYSICIAN(S): Hugo Underwood MD. TECHNIQUE: The relative risks and indications of the procedure were explained to the patient's sister and consent obtained. The patient was placed supine on the arteriogram table in the gastrostomy tube prepped and draped usual sterile fashion. Conscious sedation monitoring were provided throughout the procedure by a nurse. The skin soft tissues around the tube were anesthetized 1 percent xylocaine. Contrast was injected which confirmed the tube in the antrum of the stomach. The tube was removed over a 0.035 Amplatz wire. Next a 22 Salvadorean peel-away sheath was placed. A new larger 18 Salvadorean gastrostomy tube was placed. The balloon was inflated in the tube retracted against the abdominal wall. Its position was confirmed with injection of contrast. The patient tolerated the procedure well. FINDINGS: IMPRESSION: 1.Gastrostomy tube change. A new larger 18 Salvadorean gastrostomy tube was placed as described above.
== END 2017-09-19 13:00 | disposition home or self-care (01) ==
LOC: SDSVAS 07:49
PROVIDERS: ATTEND Radiology Vascular & Interventional Radiology
DX: Z46.59 Encounter for fitting and adjustment of other gastrointestinal appliance and device (principal); K22.2 Esophageal obstruction; E46 Unspecified protein-calorie malnutrition; I11.0 Hypertensive heart disease with heart failure; I50.9 Heart failure, unspecified
CPT/HCPCS: 36415; 49450; 80048; 99152; C1760; C1769; C1887; J1644; J2250; J2405; J3010; J7030; Q9967

== ENCOUNTER 2017-11-21 08:57 | Day surgery (SDC) | payer MEDICARE ==
[2017-11-21] MEDS ORDERED: Propofol 10 mg/ml Inj (20 ML) ONE (11:12)
[2017-11-21] MEDS ORDERED: Sodium Chloride 0.9% 1,000 ML IV SCH (12:15)
[2017-11-21 12:17] VITALS: O2SAT 98
[2017-11-21 14:48] VITALS: BP 151/60; PULSE 63; RESP 16; TEMP 98.3
== END 2017-11-21 14:20 | disposition home or self-care (01) ==
LOC: ENDO 08:57
PROVIDERS: ATTEND Internal Medicine Gastroenterology
DX: K22.70 Barrett's esophagus without dysplasia (principal); K29.50 Unspecified chronic gastritis without bleeding; K21.0 Gastro-esophageal reflux disease with esophagitis; Z93.1 Gastrostomy status; I34.0 Nonrheumatic mitral (valve) insufficiency; I50.9 Heart failure, unspecified; F31.9 Bipolar disorder, unspecified; F41.0 Panic disorder [episodic paroxysmal anxiety]; E66.9 Obesity, unspecified; Z68.41 Body mass index [BMI] 40.0-44.9, adult; K44.9 Diaphragmatic hernia without obstruction or gangrene
CPT/HCPCS: 43239; 88305; 88312; 88342; J2704; J7030; J7040

== ENCOUNTER 2018-04-03 11:11 | Day surgery (SDC) | payer MEDICARE ==
[2018-03-27 08:39] VITALS: BMI 31.6
[2018-04-03] MEDS ORDERED: Sodium Chloride 0.9% 1,000 ML IV SCH (13:30)
[2018-04-03] MEDS ORDERED: Propofol 10 mg/ml Inj (20 ML) ONE (14:38)
[2018-04-03 15:30] VITALS: TEMP 98
[2018-04-03 16:12] VITALS: BP 100/52; PULSE 64; RESP 16; O2SAT 95
== END 2018-04-03 16:34 | disposition home or self-care (01) ==
LOC: ENDO 11:11
PROVIDERS: ATTEND Internal Medicine Gastroenterology
DX: K22.70 Barrett's esophagus without dysplasia (principal); K21.0 Gastro-esophageal reflux disease with esophagitis; K44.9 Diaphragmatic hernia without obstruction or gangrene; I50.9 Heart failure, unspecified; F31.9 Bipolar disorder, unspecified; F41.0 Panic disorder [episodic paroxysmal anxiety]; E66.9 Obesity, unspecified; Z80.0 Family history of malignant neoplasm of digestive organs; Q43.8 Other specified congenital malformations of intestine; K64.8 Other hemorrhoids; Z68.31 Body mass index [BMI] 31.0-31.9, adult
CPT/HCPCS: 43239; 88305; 88312; J2001; J2704; J7030; J7040

== ENCOUNTER → 2018-06-30 | Day surgery (SDC) | payer MEDICARE ==
[~2018-06-30] MED LIST: Iodixanol 320 mg/ml 150 ml Bottle IV ONE; Lidocaine 2% Inj (20ml) ONE; Midazolam 2 MG/2 ML VIAL ONE; Sodium Chloride 0.45% 1,000 ML IV SCH
[2018-06-30 13:13] VITALS: BMI 32.5
--- NOTE | 2018-06-30 14:00 | ED PDOC ---
Arrival/HPI - General Chief Complaint: GI Problem Time Seen by Provider: 06/30/18 13:01 Historian: Patient - History of Present Illness Narrative History of Present Illness (Text): 06/30/18 13:57 53 year old female, whose past medical history includes anxiety, depression(taking medication), CAD, dizziness, and mitral valve prolapse, was referred to the ED by Dr. Toledo s/p PEG tube dislodgment at 12:13 pm this afternoon. Patient informs noticing white puss from the area but denies any other associated somatic complaints. Patient denies any fever, chills, nausea, vomiting, diarrhea, abdominal pain, chest pain, SOB, neck pain, back pain, headache, dizziness, or any other complaints. GI: Dr. Toledo Time/Duration: Prior to Arrival Symptom Onset: Sudden Activities at Onset: Light Context: Home Past Medical History - Provider Review Nursing Documentation Reviewed: Yes - Infectious Disease Hx of Infectious Diseases: None - Tetanus Immunization Tetanus Immunization: Unknown - Reproductive Currently : Unknown - Past Medical History Past Medical History: No Previous - Cardiac Hx Pacemaker: No - Pulmonary Hx Respiratory Disorders: No - Neurological Hx Paralysis: No - HEENT Hx HEENT Disorder: Yes (patient wears eyeglasses) - Renal Hx Renal Disorder: No - Endocrine/Metabolic Hx Endocrine Disorders: No - Hematological/Oncological Hx Blood Transfusions: Yes - Integumentary Hx Dermatological Disorder: No - Musculoskeletal/Rheumatological Hx Musculoskeletal Disorders: No - Gastrointestinal Hx Gastrointestinal Disorders: Yes Hx Gall Bladder Disease: Yes (CHOLELITHIASIS) Hx Gastroesophageal Reflux: Yes Other/Comment: endo 06/13/17 dx severe esophagitis and hiatal hernia - Genitourinary/Gynecological Hx Genitourinary Disorders: Yes Hx Urinary Tract Infection: Yes Other/Comment: ENDOMETRIOSIS gone since menopause - Psychiatric Hx Emotional Abuse: No Hx Physical Abuse: No Hx Substance Use: No - Past Surgical History Past Surgical History: No Previous - Surgical History Hx Appendectomy: Yes Hx Cardiac Catheterization: Yes - Anesthesia Hx Anesthesia Reactions: No Hx Malignant Hyperthermia: No - Suicidal Assessment Feels Threatened In Home Enviroment: No Family/Social History - Physician Review Nursing Documentation Reviewed: Yes Family/Social History: No Known Family HX Smoking Status: Never Smoked Hx Alcohol Use: No Hx Substance Use: No Hx Substance Use Treatment: No Allergies/Home Meds Allergies/Adverse Reactions: Allergies No Known Allergies Allergy (Verified 07/21/17 22:53) Home Medications: Home Meds Medication Instructions Recorded Confirmed RX: ARIPiprazole [Abilify] 5 mg PO QAM 03/29/14 06/30/18 RX: Escitalopram [Lexapro] 10 mg PO QAM 01/25/16 06/30/18 RX: LORazepam [Ativan] 1 mg PO QID 01/25/16 06/30/18 Furosemide [Lasix] 40 mg PO DAILY 09/11/17 06/30/18 RX: Folic Acid 1 mg PO TID 09/11/17 06/30/18 RX: Metoprolol Tartrate [Lopressor] 25 mg PO TID 09/11/17 06/30/18 RX: Potassium Chloride [K-Dur 20 20 meq PO DAILY 09/11/17 06/30/18 mEq ER Tab] Ranitidine HCl [Zantac] 150 mg PO HS 11/21/17 06/30/18 Omeprazole Magnesium [Prilosec] 10 mg PO DAILY 03/27/18 06/30/18 Sucralfate [Carafate] 1 gm PO 0600,1600 03/27/18 06/30/18 Review of Systems - Physician Review All systems were reviewed & negative as marked: Yes - Review of Systems Constitutional: absent: Fevers Respiratory: absent: SOB, Cough Cardiovascular: absent: Chest Pain Gastrointestinal: Other (PEG tube fell out). absent: Abdominal Pain, Diarrhea, Nausea, Vomiting Genitourinary Female: absent: Dysuria, Urine Output Changes Musculoskeletal: absent: Back Pain, Neck Pain Skin: absent: Rash Neurological: absent: Headache, Dizziness Psychiatric: absent: Anxiety Physical Exam - Physical Exam Narrative Physical Exam (Text): 06/30/18 14:00 Gen: VS reviewed, alert, well developed, well nourished, nontoxic, mild distress. ENT: normal pharynx. Eye: EOMI, PERRL. Neck: no JVD, supple, no adenopathy. CV: regular rate, regular rhythm, no rubs, no murmur, no gallops, S1, S2, pulses equal and strong. Pulm: no distress, clear to auscultation, no wheeze, no rhonchi, breath sounds equal, no rales. Abd: soft, nontender, no guarding, no rebound, no rigidity, normal bowel sounds. Stoma appears tight and has overlying dry blood. Nontender. Ext: no edema. Skin: good color, no rash, no cyanosis. Psych: responds appropriately to questions, normal affect. Neuro: oriented x 3, CN2-12 intact grossly, motor intact, sensation intact. Vital Signs Reviewed: Yes Vital Signs Temp Pulse Resp BP Pulse Ox 06/30/18 13:16 97.4 F L 76 18 103/71 95 Temperature: Afebrile Blood Pressure: Normal Pulse: Regular Respiratory Rate: Normal Appearance: Positive for: Well-Appearing, Non-Toxic, Comfortable Pain Distress: None Mental Status: Positive for: Alert and Oriented X 3 Medical Decision Making ED Course and Treatment: 06/30/18 14:00 Impression: 53 year old female presents to the ED for evaluation s/p PEG tube dislodgment. Plan: -- Consult GI -- Reassessment and disposition Progress Notes: 06/30/18 15:29 admit accepted to the service of dr. carrillo car for PEG tube placement, same day surgery. PEG tube was unsuccessfully advanced by the GI fellow in the ED which prompted interventional consultation. 06/30/18 20:16 - Scribe Statement The provider has reviewed the documentation as recorded by the Scribe Emmy Negro. All medical record entries made by the Scribe were at my direction and personally dictated by me. I have reviewed the chart and agree that the record accurately reflects my personal performance of the history, physical exam, medical decision making, and the department course for this patient. I have also personally directed, reviewed, and agree with the discharge instructions and disposition. Disposition/Present on Arrival - Present on Arrival Any Indicators Present on Arrival: No History of DVT/PE: No History of Uncontrolled Diabetes: No Urinary Catheter: No History of Decub. Ulcer: No History Surgical Site Infection Following: None - Disposition Have Diagnosis and Disposition been Completed?: Yes Diagnosis: PEG (percutaneous endoscopic gastrostomy) adjustment/replacement/removal Disposition: HOSPITALIZED Disposition Time: 15:30 Patient Plan: Admission Patient Problems: Current Active Problems Problem Status Onset PEG (percutaneous endoscopic gastrostomy) adjustment/replacement/removal Acute Condition: STABLE
--- NOTE | 2018-06-30 15:05 | CP.PCM.CON ---
History of Present Illness - History of Present Illness History of Present Illness: GI Consult Note for Dr. Toledo Reason for Consultation: PEG tube displacement Patient is a 53 yo F with PMH of GERD, gastric ulcers, esophageal ulcers, Thompson's esophagus, grade C/D esophagitis, panic attacks, obesity, mitral valve regurgitation, depression, bipolar disorder, and gallstones presents to ED due to PEG tube displacement. PEG tube was placed 07/2017 due to multiple non-healing esophageal ulcers and esophagitis found on upper endoscopy. Patient states that tube had been progressively sliding out for 2 weeks. Family at bedside stated that nothing could be pushed into tube, but bilious fluid would come out of tube . The PEG tube came out midday today. Patient is scheduled for PEG tube replacement with Dr. Hugo Underwood, IR, tomorrow. 12 point ROS reviewed and is negative other than what is stated in HPI. PMH: GERD, gastric ulcers, esophageal ulcers, Thompson's esophagus, grade D esophagitis, panic attacks, obesity, mitral valve regurgitation, depression, bipolar disorder, and gallstones Surgery: PEG tube placement Family history:Colon cancer in her mother. Social History:denies smoking, EtOH or drug use Allergies: No known drug allergies Medications: Reviewed as per MAR Review of Systems - Review of Systems All systems: reviewed and no additional remarkable complaints except (12 point ROS reviewed and is negative other than what is stated in HPI.) Past Patient History - Infectious Disease Hx of Infectious Diseases: None - Tetanus Immunizations Tetanus Immunization: Unknown - Past Social History Smoking Status: Never Smoked - CARDIAC Hx Pacemaker: No - PULMONARY Hx Respiratory Disorders: No - NEUROLOGICAL Hx Paralysis: No - HEENT Hx HEENT Problems: Yes (patient wears eyeglasses) - RENAL Hx Chronic Kidney Disease: No - ENDOCRINE/METABOLIC Hx Endocrine Disorders: No - HEMATOLOGICAL/ONCOLOGICAL Hx Blood Transfusions: Yes - INTEGUMENTARY Hx Dermatological Problems: No - MUSCULOSKELETAL/RHEUMATOLOGICAL Hx Musculoskeletal Disorders: No - GASTROINTESTINAL Hx Gastrointestinal Disorders: Yes Hx Gall Bladder Disease: Yes (CHOLELITHIASIS) Hx Gastroesophageal Reflux: Yes Other/Comment: endo 06/13/17 dx severe esophagitis and hiatal hernia - GENITOURINARY/GYNECOLOGICAL Hx Genitourinary Disorders: Yes Hx Urinary Tract Infection: Yes Other/Comment: ENDOMETRIOSIS gone since menopause - PSYCHIATRIC Hx Emotional Abuse: No Hx Physical Abuse: No Hx Substance Use: No - SURGICAL HISTORY Hx Appendectomy: Yes Hx Cardiac Catheterization: Yes - ANESTHESIA Hx Anesthesia Reactions: No Hx Malignant Hyperthermia: No Meds Allergies/Adverse Reactions: Allergies Allergy/AdvReac Type Severity Reaction Status Date / Time No Known Allergies Allergy Verified 07/21/17 22:53 Physical Exam - Constitutional Appears: No Acute Distress - Head Exam Head Exam: NORMAL INSPECTION - Eye Exam Eye Exam: Normal appearance Pupil Exam: NORMAL ACCOMODATION - ENT Exam ENT Exam: Mucous Membranes Moist, Normal Exam - Neck Exam Neck exam: Positive for: Normal Inspection - Respiratory Exam Respiratory Exam: Clear to Auscultation Bilateral, Wheezes. absent: Rales, Rhonchi - Cardiovascular Exam Cardiovascular Exam: RRR. absent: Diastolic murmur, Gallop, Rubs, Systolic Murmur - GI/Abdominal Exam GI & Abdominal Exam: Soft. absent: Distended, Guarding, Rebound, Tenderness Additional comments: PEG tube stoma pink, no erythema or discharge - Extremities Exam Extremities exam: Positive for: normal inspection - Back Exam Back exam: NORMAL INSPECTION - Neurological Exam Neurological exam: Alert, Oriented x3 - Psychiatric Exam Psychiatric exam: Normal Affect, Normal Mood - Skin Skin Exam: Normal Color, Warm Results - Vital Signs Recent Vital Signs: Last Vital Signs Temp 97.4 F L 06/30/18 13:16 Pulse 76 06/30/18 13:16 Resp 18 06/30/18 13:16 BP 103/71 06/30/18 13:16 Pulse Ox 95 06/30/18 13:16 Assessment & Plan - Assessment and Plan (Free Text) Assessment: Pt is a 53 yo F with PMH of GERD, gastric ulcers, esophageal ulcers, Thompson's esophagus, grade D esophagitis, panic attacks, obesity, mitral valve regurgitation, depression, bipolar disorder, and gallstones presents to [facility] due to PEG tube displacement. 1. PEG tube displacement Plan: - Unable to replace PEG tube bedside - Will plan for outpatient endoscopy and PEG tube placement tomorrow - CLD - NPO after midnight Patient seen and discussed in detail with Dr. Toledo. Kwame De La Fuente, DO PGY2
[2018-06-30 17:58] VITALS: RESP 20; TEMP 97.5; O2SAT 97
[2018-06-30 18:28] VITALS: BP 105/70; PULSE 62
--- NOTE | 2018-06-30 20:13 | VASCULAR ---
Date of service: 06/30/2018 PROCEDURE: G-tube injection. Attempt to replace G-tube. HISTORY: G-tube fell out. COMPARISON: TECHNIQUE: The G-tube sinus tract was prepped and draped in the usual sterile fashion. A small dilator was placed. Contrast was injected. A sinus tract was not present with initial injection. The sinus tract was probed with the 6 Congolese dilator and a 5 Congolese catheter. Despite multiple attempts and injections and various guidewires, the stomach could not be entered. FINDINGS: IMPRESSION: The sinus tract is closed. The patient's gastrostomy tube could not be replaced
== END | disposition home or self-care (01) ==
LOC: ED 12:24 → SDSVAS 15:28
PROVIDERS: ATTEND Radiology Vascular & Interventional Radiology
DX: Z43.1 Encounter for attention to gastrostomy (principal); K22.70 Barrett's esophagus without dysplasia; K22.10 Ulcer of esophagus without bleeding; K21.9 Gastro-esophageal reflux disease without esophagitis; K44.9 Diaphragmatic hernia without obstruction or gangrene; F31.9 Bipolar disorder, unspecified; F41.9 Anxiety disorder, unspecified; I25.10 Atherosclerotic heart disease of native coronary artery without angina pectoris; I34.1 Nonrheumatic mitral (valve) prolapse; Z87.11 Personal history of peptic ulcer disease
CPT/HCPCS: 49465; 99152; 99285; C1769; J1644; J3010; J7030; Q9967

== ENCOUNTER 2018-07-01 12:31 | Day surgery (SDC) | payer MEDICARE ==
[2018-06-30 13:13] VITALS: BMI 32.5
[2018-07-01 13:18] VITALS: RESP 18
[2018-07-01] MEDS ORDERED: ceFAZolin IV 2 gm in Dextrose 2 GM/50 ML BAG IVPB SCH (15:30)
[2018-07-01] MEDS ORDERED: Propofol 10 mg/ml Inj (20 ML) ONE (16:08)
[2018-07-01] MEDS ORDERED: Sodium Chloride 0.9% 1,000 ML IV SCH (16:45)
[2018-07-01 17:25] VITALS: PULSE 76; TEMP 98.6; O2SAT 97
[2018-07-01] MEDS ORDERED: Acetaminophen 650mg/20.3ml solution UD ONE (17:37)
[2018-07-01 17:51] VITALS: BP 131/69
== END 2018-07-01 18:10 | disposition home or self-care (01) ==
LOC: ENDO 12:31
PROVIDERS: ATTEND Internal Medicine Gastroenterology
DX: K94.23 Gastrostomy malfunction (principal); R13.10 Dysphagia, unspecified; K44.9 Diaphragmatic hernia without obstruction or gangrene
CPT/HCPCS: 43246; J0690; J2704; J7030; J7040